=== PATIENT | male | born 1990 | race Caucasian/White ===

== ENCOUNTER 2023-05-01 16:10 | Emergency (ER) | payer OTHER, SELFPAY ==
[2023-05-01 16:17] VITALS: BP 133/88; PULSE 98; RESP 18; TEMP 36.7; O2SAT 97
--- NOTE | 2023-05-01 18:22 | CRLHL7_ITS ---
For Patients: As a result of the Century Cures Act, medical imaging exams and procedure reports are released immediately into your electronic medical record. You may view this report before your referring provider. If you have questions, please contact your health care provider. INDICATION: Cough, hemoptysis. TECHNIQUE: Chest 2 views. COMPARISON: None. FINDINGS: Cardiovascular and mediastinum: Heart size and vasculature are normal in caliber and appearance. Lungs and pleural spaces: Lungs are clear. No sign of infiltrate or mass. No sign of pleural effusion. No pneumothorax. Bones and soft tissues: No significant findings. IMPRESSION: No acute cardiopulmonary abnormality. Dictated by Dmitry Tenorio MD @ 05/01/2023 7:32:03 PM (Electronically Signed)
--- NOTE | 2023-05-01 18:52 | ED.GENADULT ---
HPI - General Adult General Date Seen: 05/01/23 Chief complaint: Cough Stated complaint: coughing up blood Time Seen by Provider: 05/01/23 16:58 History of Present Illness HPI narrative: This is a pleasant generally healthy nonsmoking 32-year-old male who presents to the ER today with cough and hemoptysis. He has actually been ill with infectious symptoms for about a month. He says symptoms 1st started with [id number] disease. That got better and then he got what he thought was a cold, which lasted for about a week or so and then was getting better. He then feels like he got a 2nd cold perhaps 2 and half weeks ago. Symptoms have been nasal congestion, mild sore throat, and cough with the 2nd cold. For the past several days the cough has been more notable. He is not short of breath or having any chest pain. He is coughing up some yellow sputum. He had some flecks of blood, perhaps a tsp of blood total volume on Friday morning after he woke up. No blood in his sputum on Friday or Friday or Friday but he is having blood in his sputum again today. Again small volume. He is not short of breath. No chest pain. No fever. No history of smoking. No history of lung cancer. No history of patient has autoimmune disease. No swelling in his legs. He has a distant history of asthma but has not used his inhaler for several years. Related Data Previous Rx's Medication Instructions Recorded doxycycline monohydrate 100 mg 100 mg PO BID 7 days #14 caps 05/01/23 capsule Allergies Allergy/AdvReac Type Severity Reaction Status Date / Time Penicillins Allergy Verified 05/01/23 16:21 Exam Narrative: Exam Narrative: Constitutional: Appears well-developed and well-nourished. Alert. Conversant. Non toxic. HENT: Head: Atraumatic. Nose: Nose normal. Mouth/Throat: Oral mucosa is clear and moist. no trismus. Pharynx mildly erythematous on the peritonsillar pillars. Tonsils symmetric. No tonsillar enlargement, erythema, or exudate. Eyes: Conjunctivae normal. EOM normal. Pupils equal, round, and reactive to light. No scleral icterus. Neck: Normal range of motion. Neck supple. No tracheal deviation present. Cardiovascular: Normal rate, regular rhythm. No gallop. No friction rub. No murmur heard. Symmetric radial artery pulses Pulmonary/Chest: Effort normal. No stridor. No respiratory distress. No wheezes. No rales. No rhonchi . No tenderness. Abdominal: Soft. Bowel sounds normal. No distension. No mass. No tenderness. No rebound. No guarding. Musculoskeletal: RUE: Normal range of motion. No tenderness. No deformity LUE: Normal range of motion. No tenderness. No deformity RLE: Normal range of motion. No edema. No tenderness. No deformity LLE: Normal range of motion. No edema. No tenderness. No deformity Lymph: No cervical adenopathy. Neurological: Alert and oriented to person, place, and time. Normal strength. CN II-VII intact. No sensory deficit. GCS eye subscore is 4. GCS verbal subscore is 5. GCS motor subscore is 6. Normal coordination Skin: Skin is warm and dry. No rash noted. No pallor. Normal capillary refill. Psychiatric: Normal mood. Normal affect. Const: Vital Signs, click to edit/add: Vital Signs - 24 hr 05/01/23 16:17 Temperature 98.1 F Pulse Rate [Pulse Oximeter] 98 Respiratory Rate 18 [facility] 133/88 Pulse Oximetry 97 Oxygen Delivery Me thod Room Air Course Vital Signs Vital signs: Initial Vital Signs Temperature 98.1 F 05/01/23 16:17 Temperature Source Temporal Artery Scan 05/01/23 16:17 Pulse Rate 98 05/01/23 16:17 Respiratory Rate 18 05/01/23 16:17 Blood Pressure 133/88 05/01/23 16:17 Blood Pressure Mean 103 05/01/23 16:17 Blood Pressure Position Sitting 05/01/23 16:17 Pulse Oximetry 97 05/01/23 16:17 Oxygen Delivery Method Room Air 05/01/23 16:17 Vital Signs Temperature 98.1 F 05/01/23 16:17 Pulse Rate 98 05/01/23 16:17 Respiratory Rate 18 05/01/23 16:17 Blood Pressure 133/88 05/01/23 16:17 Pulse Oximetry 97 05/01/23 16:17 Oxygen Delivery Method Room Air 05/01/23 16:17 Temperature 98.1 F 05/01/23 16:17 Pulse Rate 98 05/01/23 16:17 Respiratory Rate 18 05/01/23 16:17 Blood Pressure 133/88 05/01/23 16:17 Pulse Oximetry 97 05/01/23 16:17 Oxygen Delivery Method Room Air 05/01/23 16:17 Medical Decision Making MDM Narrative Medical decision making narrative: This patient presents for evaluation of couple weeks of cough now with hemoptysis. This is consistent with a viral respiratory tract infection. Viral testing deferred because he is outside the window for treatment of influenza or coronavirus with symptoms ongoing for 2 weeks. At this point he is not showing signs of respiratory distress, hypoxia and is not even short of breath. At this point no indication for hospitalization.. There is no signs at this point of serious bacterial infection such as OM, RPA, epiglottitis, [employer], strep pharyngitis, pneumonia, sinusitis, meningitis, bacteremia, serious bacterial infection. Given hemoptysis and biphasic illness, concern is for possible bacterial superinfection or pneumonia. Chest x-ray is fortunately negative for any obvious pneumonia. Given duration of cough and biphasic in this will put him on a short course of antibiotics. Discussed with him that often times bronchitis is viral and takes time to resolve and that antibiotics may not be beneficial. There are no gastrointestinal symptoms at this point and no signs of dehydration. Close followup with primary care physician is indicated. Return to ED for fever > 103, protracted vomiting, confusion, or other worsening. Imaging Data Chest x-ray: Attestation: I have reviewed the pertinent imaging results. My impression: no infiltrate Radiologist's impression: IMPRESSION: No acute cardiopulmonary abnormality. Discharge Plan Discharge Clinical Impression: Cough with hemoptysis, Cough Patient Disposition: Home, Self-Care Condition: Stable Instructions: Coughing Up Blood (Hemoptysis) (ED), Acute Cough (ED) Additional Instructions: As we discussed, please return to the ER right away if you have worsening cough, trouble breathing, chest pain, high fever, or coughing up increasing amounts of blood. If not completely improved within 7 days, please recheck with your regular doctor or come back to the ER for recheck. Activity Level: No Restrictions Discharge Diet: Regular Prescriptions: New doxycycline monohydrate 100 mg capsule 100 mg PO BID 7 Days Qty: 14 0RF Follow Up/Referrals: Gerald Cortés MD [Primary Care Provider] - Stand Alone Forms: PT [facility] Info Instructions
== END 2023-05-01 20:11 | disposition home or self-care (01) ==
PROVIDERS: Emergency Provider Emergency Medicine; PCP Family Medicine
DX: R04.2 Hemoptysis (principal)
CPT/HCPCS: 71046; 99283

== ENCOUNTER 2024-06-06 17:21 | Emergency (ER) | payer OTHER, SELFPAY ==
--- OUTSIDE RECORDS SUMMARY | 2024-06-06 17:23 | XMS_ITS | Continuity of Care Document ---
Author Name [facility] Organization [facility] Care Team Providers Care Architectural Manager Name Role Phone [facility] Unavailable Unavailable Problems Combined list of problems from Department of Defense and Veterans Affairs facilities. It does not include entries that were removed or entered in error. Problem Status Onset Date Problem Type Date of Resolution Comments Source Exposure to potentially hazardous substance (SCT [id number]) Active 08/01/19 24 Condition Aug 01, 2023 Entered By: WILDER WEBB [facility]: [facility] FELA Documentation Initiative [facility] Abdominal Pain (SCT 10911226) Active Condition [facility] Asthma (SCT 990533837) Active Condition [facility] Back pain Active Condition [facility] Chronic post-traumatic stress disorder following combat Active Condition [place] [facility] Contact with and (Suspected) Exposure to Air Pollution Active Condition [facility] Contact with and (suspected) exposure to other hazardous substances Active Condition [facility] Contact with and (Suspected) Exposure to other Hazardous, Chiefly Nonmedicinal, Active Condition [facility] Contact with and (Suspected) Exposure to other Hazards in the Physical Environme Active Condition [facility] Eczema (SCT 43905628) Active Condition [facility] Low Back Pain (SCT 842119008) Active Condition [facility] Obesity Active Condition [facility] Sleep apnea Active Condition [facility] Steatosis of liver Active Condition [facility] lumbago Active Condition [facility] nonallopathic lesions thoracic Active Condition [facility] sacroiliitis Active Condition [facility] intervertebral disc degeneration - lumbosacral Active Condition [facility] facet syndrome lumbar Active Condition [facility] lower back pain Active Condition [facility] foot pain (soft tissue) Active Condition [facility] skin: rash [as Sx] Active Condition DoD overweight Active Condition DoD psoriasis Active Condition [facility] visit for: routine eye exam Inactive Condition [facility] Laboratory Studies Inactive Condition DoD visit for: services physical demobilization Active Condition [facility] Repair Of Superficial Wound Scalp .1 to 2.5 cm Inactive Condition [facility] Anthrax Vaccine, For Subcutaneous Use Inactive Condition DoD feared medical condition not demonstrated Active Condition [facility] Patient Counseling: Active Condition DoD lump in / on the skin Active Condition [facility] Observation For Suspected Condition Inactive Condition DoD anxiety disorder NOS Active Condition DoD generalized anxiety disorder Active Condition [facility] Patient Education Dietary Changing Eating Habits Active Condition [facility] Guidance: Concerns About Inadequate Physical Activity Active Condition [facility] Other Physical Therapy Active Condition [facility] Dietary Counseling Pertaining To Obesity Active Condition [facility] obesity Active Condition [facility] Body Mass Index Active Condition Do[facility] plantar fasciitis left Inactive Condition DoD patellofemoral syndrome Active Condition DoD acute bronchitis Inactive Condition [facility] cough Inactive Condition DoD sinusitis acute Active Condition DoD refractive error Active Condition [facility] visit for: services physical Active Condition [facility] visit for: ears / hearing exam Active Condition [facility] assessment of patient condition work-related Active Condition [facility] visit for: screening exam pulmonary tuberculosis Active Condition [facility] Diagnosis: ICD-10-CM G47.30 Sleep apnea, unspecified Active Diagnosis [facility] Diagnosis: ICD-10-CM Z77.9 Oth contact w and (suspected) exposures hazardous to health Active Diagnosis [facility] Diagnosis: ICD-10-CM Z77.110 Contact with and (suspected) exposure to air pollution Active Diagnosis [facility] Medications Combined list of outpatient medications from Department of [facility] and [facility] facilities.Medications provided include 1) outpatient medications from the last 15 months, and 2) patient-reported medications. Medication Details Route Status Patient Instructions Prescription Expires Prescription Number Last Dispense Date Ordering Provider Order Date Order Qty Source CELECOXIB 200MG CAP TAKE ONE CAPSULE BY MOUTH EVERY DAY NEEDED FOR PAIN TAKE WITH FOOD ORAL ACTIVE 01/13/2025 [id number] 4 Sarah DU 2023 90 [place] 750MG TAB TAKE ONE TABLET BY MOUTH THREE TIMES A DAY NEEDED FOR MUSCLE PAIN ORAL ACTIVE 01/13/2025 [id number] 4 Sarah DU 2023 90 [facility] Allergies, Adverse Reactions, Alerts Combined list of allergies from Department of [facility] and [facility] facilities. It does not include entries that were removed or entered in error. Substance Category Reaction Severity Reaction type Status Date Reported Comments Source AMOXICILLIN Propensity to adverse reactions to drug (finding) Finding of vomiting [facility] (AMOXICILLIN TRIHYDRATE) Drug allergy (disorder) Vomiting active 0 [place], [place] Immunizations Combined list of available immunizations from the Department of Defense and Veterans Affairs facilities. Immunization Series Date Given Administered By Site Reaction Lot Number CVX Code Drug Escapement Maker Status Comments Source TDAP 2015 115 complet ed [facility] anthrax vaccine 4 2010 [id number] [employer] [place] ([facility]) complet ed anthrax vaccine DoD Influenza, seasonal, injectable 3 2010 [id number] 141 [employer], [employer]. (CSL) complet ed Influenza , seasonal, injectabl e DoD anthrax vaccine 3 2010 [id number] [place] [employer] [place] ([facility]) complet ed anthrax vaccine DoD vaccinia (smallpox) vaccine 1 2009 UNK 75 Unknown (UNK) Not Given vaccinia (smallpox ) vaccine DoD anthrax vaccine 2 2009 [id number] [facility] complet ed anthrax vaccine DoD influenza virus vaccine, live, attenuated, for intranasal use 1 2009 [id number] [employer] (MED) complet ed influenza virus vaccine, live, attenuate d, for intranasa l use DoD anthrax vaccine 1 2009 [id number] [employer] [place] ([facility]) complet ed anthrax vaccine DoD typhoid Vi capsular polysaccharid e vaccine 1 2009 [id number] Sanofi Pasteur (PMC) complet ed typhoid Vi capsular polysacch aride vaccine DoD hepatitis A and hepatitis B vaccine 3 2009 [id number] 104 [employer] (SKB) complet ed hepatitis A and hepatitis B vaccine DoD Novel influenza-H1N 1-09, injectable 1 2009 [id number] [employer] Danny. (NOV) complet ed Novel influenza -I2T0-05, injectabl e DoD influenza virus vaccine, live, attenuated, for intranasal use 1 2008 [id number] [employer] (MED) complet ed influenza virus vaccine, live, attenuate d, for intranasa l use DoD hepatitis A and hepatitis B vaccine 2 2008 [id number] 104 [employer] (SKB) complet ed hepatitis A and hepatitis B vaccine DoD measles, mumps and rubella virus vaccine 1 2008 [id number] Merck (MSD) complet ed measles, mumps and rubella virus vaccine DoD poliovirus vaccine, inactivated 1 2008 [id number] Sanofi Pasteur (PMC) complet ed polioviru s vaccine, inactivat ed DoD varicella virus vaccine 1 2008 UNK 21 Unknown (UNK) Not Given varicella virus vaccine DoD hepatitis A and hepatitis B vaccine 1 2008 [id number] 0AA 104 [employer] (SKB) complet ed hepatitis A and hepatitis B vaccine DoD meningococcal polysaccharid e (groups A, C, Y and W-135) diphtheria toxoid conjugate vaccine (MCV4P) 1 2008 [id number] Sanofi Pasteur (PMC) complet ed meningoco ccal polysacch aride (groups A, C, Y and W-135) diphtheri a toxoid conjugate vaccine (MCV4P) DoD tetanus toxoid, reduced diphtheria toxoid, and acellular pertu is vaccine, adsorbed 1 2008 [id number] 115 [employer] (SKB) complet ed tetanus toxoid, reduced diphtheri a toxoid, and acellular pertussis vaccine, adsorbed DoD Results Combined list of recent chemistry, hematology and other laboratory results from Department of Defense and Veterans Affairs, ranging from 15 months to all on record, depending upon the facility. Order Name Results Value Reference Range Date Interpretation Specimen Comments Source COMPREHENS MATEO METABOLIC PANEL+MG CREATININE [MASS/VOLUM E] IN SERUM OR PLASMA 1.2 mg/dL 0.7 - 1.2 10/09 Specimen Type: PLASMA Comment: Elevated triglyceride result from a non-fasting specimen should be interpreted with caution. A fasting panel is recommended for accurate triglyceride s when trigs are >200 from a non-fasting specimen. Ordering Provider: MELISSA DU Report Released Date/Time: October 10, 2023 10:28 AM Reporting Lab: [facility] [phone] Performing Lab: [facility] [address] [facility] COMPREHENS MATEO METABOLIC PANEL+MG UREA NITROGEN [MASS/VOLUM E] IN SERUM OR PLASMA 21 mg/dL 8 - 26 10/09 Specimen Type: PLASMA Comment: Elevated triglyceride result from a non-fasting specimen should be interpreted with caution. A fasting panel is recommended for accurate triglyceride s when trigs are >200 from a non-fasting specimen. Ordering Provider: MELISSA DU Report Released Date/Time: October 10, 2023 10:28 AM Reporting Lab: [facility] [phone] Performing Lab: [facility] [address] [facility] COMPREHENS MATEO METABOLIC PANEL+MG GLUCOSE [MASS/VOLUM E] IN SERUM OR PLASMA 92 mg/dL 70 - 100 10/09 Specimen Type: PLASMA Comment: Elevated triglyceride result from a non-fasting specimen should be interpreted with caution. A fasting panel is recommended for accurate triglyceride s when trigs are >200 from a non-fasting specimen. Ordering Provider: MELISSA DU Report Released Date/Time: October 10, 2023 10:28 AM Reporting Lab: [facility] [address] Performing Lab: [facility] [phone] [facility] COMPREHENS MATEO METABOLIC PANEL+MG SODIUM [MOLES/VOLU ME] IN SERUM OR PLASMA 138 mmol/L 136 - 145 10/09 Specimen Type: PLASMA Comment: Elevated triglyceride result from a non-fasting specimen should be interpreted with caution. A fasting panel is recommended for accurate triglyceride s when trigs are >200 from a non-fasting specimen. Ordering Provider: MELISSA DU Report Released Date/Time: October 10, 2023 10:28 AM Reporting Lab: [facility] [phone] Performing Lab: [facility] [phone] [facility] COMPREHENS MATEO METABOLIC PANEL+MG POTASSIUM [MOLES/VOLU ME] IN SERUM OR PLASMA 4.0 mmol/L 3.5 - 5.1 10/09 Specimen Type: PLASMA Comment: Elevated triglyceride result from a non-fasting specimen should be interpreted with caution. A fasting panel is recommended for accurate triglyceride s when trigs are >200 from a non-fasting specimen. Ordering Provider: MELISSA DU Report Released Date/Time: October 10, 2023 10:28 AM Reporting Lab: [facility] [address] Performing Lab: [facility] [address] [facility] COMPREHENS MATEO METABOLIC PANEL+MG CHLORIDE [MOLES/VOLU ME] IN SERUM OR PLASMA 105 mmol/L 98 - 107 10/09 Specimen Type: PLASMA Comment: Elevated triglyceride result from a non-fasting specimen should be interpreted with caution. A fasting panel is recommended for accurate triglyceride s when trigs are >200 from a non-fasting specimen. Ordering Provider: MELISSA DU Report Released Date/Time: October 10, 2023 10:28 AM Reporting Lab: [facility] [phone] Performing Lab: [facility] [phone] [facility] COMPREHENS MATEO METABOLIC PANEL+MG CARBON DIOXIDE, TOTAL [MOLES/VOLU ME] IN SERUM OR PLASMA 23 mmol/L 22 - 29 10/09 Specimen Type: PLASMA Comment: Elevated triglyceride result from a non-fasting specimen should be interpreted with caution. A fasting panel is recommended for accurate triglyceride s when trigs are >200 from a non-fasting specimen. Ordering Provider: MELISSA DU Report Released Date/Time: October 10, 2023 10:28 AM Reporting Lab: [facility] [phone] Performing Lab: [facility] [address] [facility] COMPREHENS MATEO METABOLIC PANEL+MG CALCIUM [MASS/VOLUM E] IN SERUM OR PLASMA 9.2 mg/dL 8.4 - 10.2 10/09 Specimen Type: PLASMA Comment: Elevated triglyceride result from a non-fasting specimen should be interpreted with caution. A fasting panel is recommended for accurate triglyceride s when trigs are >200 from a non-fasting specimen. Ordering Provider: MELISSA DU Report Released Date/Time: October 10, 2023 10:28 AM Reporting Lab: [facility] [phone] Performing Lab: [facility] [phone] [facility] COMPREHENS MATEO METABOLIC PANEL+MG PROTEIN [MASS/VOLUM E] IN SERUM OR PLASMA 7.5 g/dL 6.0 - 8.3 10/09 Specimen Type: PLASMA Comment: Elevated triglyceride result from a non-fasting specimen should be interpreted with caution. A fasting panel is recommended for accurate triglyceride s when trigs are >200 from a non-fasting specimen. Ordering Provider: MELISSA DU Report Released Date/Time: October 10, 2023 10:28 AM Reporting Lab: [facility] [address] Performing Lab: [facility] [address] [facility] COMPREHENS MATEO METABOLIC PANEL+MG ALBUMIN [MASS/VOLUM E] IN SERUM OR PLASMA 4.2 g/dL 3.5 - 5.2 10/09 Specimen Type: PLASMA Comment: Elevated triglyceride result from a non-fasting specimen should be interpreted with caution. A fasting panel is recommended for accurate triglyceride s when trigs are >200 from a non-fasting specimen. Ordering Provider: MELISSA DU Report Released Date/Time: October 10, 2023 10:28 AM Reporting Lab: [facility] [phone] Performing Lab: [facility] [address] [facility] COMPREHENS MATEO METABOLIC PANEL+MG BILIRUBIN.T OTAL [MASS/VOLUM E] IN SERUM OR PLASMA 0.6 mg/dL 0.2 - 1.2 10/09 Specimen Type: PLASMA Comment: Elevated triglyceride result from a non-fasting specimen should be interpreted with caution. A fasting panel is recommended for accurate triglyceride s when trigs are >200 from a non-fasting specimen. Ordering Provider: MELISSA DU Report Released Date/Time: October 10, 2023 10:28 AM Reporting Lab: [facility] [phone] Performing Lab: [facility] [phone] [facility] COMPREHENS MATEO METABOLIC PANEL+MG MAGNESIUM [MASS/VOLUM E] IN SERUM OR PLASMA 1.9 mg/dL 1.6 - 2.6 10/09 Specimen Type: PLASMA Comment: Elevated triglyceride result from a non-fasting specimen should be interpreted with caution. A fasting panel is recommended for accurate triglyceride s when trigs are >200 from a non-fasting specimen. Ordering Provider: MELISSA DU Report Released Date/Time: October 10, 2023 10:28 AM Reporting Lab: [facility] [phone] Performing Lab: [facility] [address] [facility] COMPREHENS MATEO METABOLIC PANEL+MG ANION GAP IN SERUM OR PLASMA 10 mmol/L 5 - 15 10/09 Specimen Type: PLASMA Comment: Elevated triglyceride result from a non-fasting specimen should be interpreted with caution. A fasting panel is recommended for accurate triglyceride s when trigs are >200 from a non-fasting specimen. Ordering Provider: MELISSA DU Report Released Date/Time: October 10, 2023 10:28 AM Reporting Lab: [facility] [phone] Performing Lab: [facility] [phone] [facility] COMPREHENS MATEO METABOLIC PANEL+MG ALKALINE PHOSPHATASE [ENZYMATIC ACTIVITY/VO LUME] IN SERUM OR PLASMA 30 U/L 40 - 150 10/09 L Specimen Type: PLASMA Comment: Elevated triglyceride result from a non-fasting specimen should be interpreted with caution. A fasting panel is recommended for accurate triglyceride s when trigs are >200 from a non-fasting specimen. Ordering Provider: MELISSA DU Report Released Date/Time: October 10, 2023 10:28 AM Reporting Lab: [facility] [phone] Performing Lab: [facility] [address] [facility] COMPREHENS MATEO METABOLIC PANEL+MG ALANINE AMINOTRANSF ERASE [ENZYMATIC ACTIVITY/VO LUME] IN SERUM OR PLASMA 37 U/L <55 - 55 10/09 Specimen Type: PLASMA Comment: Elevated triglyceride result from a non-fasting specimen should be interpreted with caution. A fasting panel is recommended for accurate triglyceride s when trigs are >200 from a non-fasting specimen. Ordering Provider: MELISSA DU Report Released Date/Time: October 10, 2023 10:28 AM Reporting Lab: [facility] [phone] Performing Lab: [facility] [address] [facility] COMPREHENS MATEO METABOLIC PANEL+MG ASPARTATE AMINOTRANSF ERASE [ENZYMATIC ACTIVITY/VO LUME] IN SERUM OR PLASMA 25 U/L <34 - 34 10/09 Specimen Type: PLASMA Comment: Elevated triglyceride result from a non-fasting specimen should be interpreted with caution. A fasting panel is recommended for accurate triglyceride s when trigs are >200 from a non-fasting specimen. Ordering Provider: MELISSA DU Report Released Date/Time: October 10, 2023 10:28 AM Reporting Lab: [facility] [address] Performing Lab: [facility] [address] [facility] COMPREHENS MATEO METABOLIC PANEL+MG GLOMERULAR FILTRATION RATE/1.73 SQ M.PREDICTED [VOLUME RATE/AREA] IN SERUM, PLASMA OR BLOOD BY CREATININE- BASED FORMULA (CKD-EPI 2020) 81 60 10/09 Specimen Type: PLASMA Comment: Elevated triglyceride result from a non-fasting specimen should be interpreted with caution. A fasting panel is recommended for accurate triglyceride s when trigs are >200 from a non-fasting specimen. Ordering Provider: MELISSA DU Report Released Date/Time: October 10, 2023 10:28 AM Reporting Lab: [facility] [phone] Performing Lab: [facility] [address] [facility] CBC LEUKOCYTES [#/VOLUME] IN BLOOD BY AUTOMATED COUNT 6.89 10*3/u L 4.0 - 11.0 10/09 Specimen Type: BLOOD No comment entered. Ordering Provider: MELISSA DU Report Released Date/Time: October 10, 2023 10:28 AM Reporting Lab: [facility] [address] Performing Lab: [facility] [address] [facility] CBC ERYTHROCYTE S [#/VOLUME] IN BLOOD BY AUTOMATED COUNT 4.91 10*6/u L 4.6 - 6.2 10/09 Specimen Type: BLOOD No comment entered. Ordering Provider: MELISSA DU Report Released Date/Time: October 10, 2023 10:28 AM Reporting Lab: [facility] [address] Performing Lab: [facility] [address] [facility] CBC HEMOGLOBIN [MASS/VOLUM E] IN BLOOD 14.9 g/dL 13.5 - 17.9 10/09 Specimen Type: BLOOD No comment entered. Ordering Provider: MELISSA DU Report Released Date/Time: October 10, 2023 10:28 AM Reporting Lab: [facility] [address] Performing Lab: [facility] [address] [facility] CBC HEMATOCRIT [VOLUME FRACTION] OF BLOOD BY AUTOMATED COUNT 42.0 41 - 54 10/09 Specimen Type: BLOOD No comment entered. Ordering Provider: MELISSA DU Report Released Date/Time: October 10, 2023 10:28 AM Reporting Lab: [facility] [phone] Performing Lab: [facility] [phone] [facility] CBC MCV [ENTITIC VOLUME] BY AUTOMATED COUNT 85.5 fL 80 - 100 10/09 Specimen Type: BLOOD No comment entered. Ordering Provider: MELISSA DU Report Released Date/Time: October 10, 2023 10:28 AM Reporting Lab: [facility] [address] Performing Lab: [facility] [address] [facility] CBC MCH [ENTITIC MASS] BY AUTOMATED COUNT 30.3 pg 27 - 33 10/09 Specimen Type: BLOOD No comment entered. Ordering Provider: MELISSA DU Report Released Date/Time: October 10, 2023 10:28 AM Reporting Lab: [facility] [address] Performing Lab: [facility] [address] [facility] CBC MCHC [MASS/VOLUM E] BY AUTOMATED COUNT 35.5 g/dL 32.0 - 37.5 10/09 Specimen Type: BLOOD No comment entered. Ordering Provider: MELISSA DU Report Released Date/Time: October 10, 2023 10:28 AM Reporting Lab: [facility] [address] Performing Lab: [facility] [address] [facility] CBC PLATELETS [#/VOLUME] IN BLOOD BY AUTOMATED COUNT 336 10*3/u L 150 - 400 10/09 Specimen Type: BLOOD No comment entered. Ordering Provider: MELISSA DU Report Released Date/Time: October 10, 2023 10:28 AM Reporting Lab: [facility] [address] Performing Lab: [facility] [address] [facility] CBC PLATELET MEAN VOLUME [ENTITIC VOLUME] IN BLOOD BY AUTOMATED COUNT 10.0 fL 7.4 - 10.4 10/09 Specimen Type: BLOOD No comment entered. Ordering Provider: MELISSA DU Report Released Date/Time: October 10, 2023 10:28 AM Reporting Lab: [facility] [address] Performing Lab: [facility] [address] [facility] CBC ERYTHROCYTE DISTRIBUTIO N WIDTH [RATIO] BY AUTOMATED COUNT 11.9 11.5 - 14.5 10/09 Specimen Type: BLOOD No comment entered. Ordering Provider: MELISSA DU Report Released Date/Time: October 10, 2023 10:28 AM Reporting Lab: [facility] [address] Performing Lab: [facility] [address] [facility] HEMOGLOBIN A1C HEMOGLOBIN A1C/HEMOGLO BIN.TOTAL IN BLOOD 5.4 4.0 - 6.0 10/09 Specimen Type: BLOOD Comment: Values obtained from A1C measurements can vary. For typical A1C assays, a reported value of 7.0 could actually be between 6.7 and 7.3 if measured by a reference method. A reported value of 9.0 could actually be between 8.7 and 9.3. Ref: http://www.n gsp.org/CAPd abhijeet.asp Ordering Provider: MELISSA DU Report Released Date/Time: October 10, 2023 10:28 AM Reporting Lab: [facility] [address] Performing Lab: [facility] [address] [facility] LIPID PANEL,NON- FASTING CHOLESTEROL [MASS/VOLUM E] IN SERUM OR PLASMA 212 mg/dL <199 - 199 10/09 H Specimen Type: PLASMA Comment: Elevated triglyceride result from a non-fasting specimen should be interpreted with caution. A fasting panel is recommended for accurate triglyceride s when trigs are >200 from a non-fasting specimen. Ordering Provider: MELISSA DU Report Released Date/Time: October 10, 2023 10:28 AM Reporting Lab: [facility] [address] Performing Lab: [facility] [address] [facility] LIPID PANEL,NON- FASTING CHOLESTEROL IN HDL [MASS/VOLUM E] IN SERUM OR PLASMA 36 mg/dL 40 10/09 L Specimen Type: PLASMA Comment: Elevated triglyceride result from a non-fasting specimen should be interpreted with caution. A fasting panel is recommended for accurate triglyceride s when trigs are >200 from a non-fasting specimen. Ordering Provider: MELISSA DU Report Released Date/Time: October 10, 2023 10:28 AM Reporting Lab: [facility] [address] Performing Lab: [facility] [address] [facility] LIPID PANEL,NON- FASTING CHOLESTEROL IN LDL [MASS/VOLUM E] IN SERUM OR PLASMA BY CALCULATION 126 mg/dL <99 - 99 10/09 H Specimen Type: PLASMA Comment: Elevated triglyceride result from a non-fasting specimen should be interpreted with caution. A fasting panel is recommended for accurate triglyceride s when trigs are >200 from a non-fasting specimen. Ordering Provider: MELISSA DU Report Released Date/Time: October 10, 2023 10:28 AM Reporting Lab: [facility] [phone] Performing Lab: [facility] [address] [facility] LIPID PANEL,NON- FASTING CHOLESTEROL IN VLDL [MASS/VOLUM E] IN SERUM OR PLASMA BY CALCULATION 50 mg/dL <29 - 29 10/09 H Specimen Type: PLASMA Comment: Elevated triglyceride result from a non-fasting specimen should be interpreted with caution. A fasting panel is recommended for accurate triglyceride s when trigs are >200 from a non-fasting specimen. Ordering Provider: MELISSA DU Report Released Date/Time: October 10, 2023 10:28 AM Reporting Lab: [facility] [address] Performing Lab: [facility] [address] ALIA [facility] LIPID PANEL,NON- FASTING CHOLESTEROL NON HDL [MASS/VOLUM E] IN SERUM OR PLASMA 176 mg/dL <129 - 129 10/09 H Specimen Type: PLASMA Comment: Elevated triglyceride result from a non-fasting specimen should be interpreted with caution. A fasting panel is recommended for accurate triglyceride s when trigs are >200 from a non-fasting specimen. Ordering Provider: MELISSA DU Report Released Date/Time: October 10, 2023 10:28 AM Reporting Lab: [facility] [address] Performing Lab: [facility] [address] ALIA BURGOS LIPID PANEL,NON- FASTING TRIGLYCERID E [MASS/VOLUM E] IN SERUM OR PLASMA 249 mg/dL <149 - 149 10/09 H Specimen Type: PLASMA Comment: Elevated triglyceride result from a non-fasting specimen should be interpreted with caution. A fasting panel is recommended for accurate triglyceride s when trigs are >200 from a non-fasting specimen. Ordering Provider: MELISSA DU Report Released Date/Time: October 10, 2023 10:28 AM Reporting Lab: [facility] [address] Performing Lab: [facility] [address] ALIA BURGOS TSH W/REFLEX TO FREE T4 THYROTROPIN [UNITS/VOLU ME] IN SERUM OR PLASMA 1.71 u[IU]/ mL 0.35 - 4.94 10/09 Specimen Type: PLASMA Comment: Elevated triglyceride result from a non-fasting specimen should be interpreted with caution. A fasting panel is recommended for accurate triglyceride s when trigs are >200 from a non-fasting specimen. Ordering Provider: MELISSA DU Report Released Date/Time: October 10, 2023 10:28 AM Reporting Lab: [facility] [address] Performing Lab: [facility] [address] ALIA ESPINO CB CBC LEUKOCYTES [#/VOLUME] IN BLOOD BY AUTOMATED COUNT 6.48 10*3/u L 4.0 - 11.0 09/24 Specimen Type: BLOOD No comment entered. Ordering Provider: GRANDIA,CONN IE M Report Released Date/Time: September 24, 2022 11:50 AM Reporting Lab: [facility] [address] Performing Lab: [facility] [address] ALIA KENZIE CBOC CBC ERYTHROCYTE S [#/VOLUME] IN BLOOD BY AUTOMATED COUNT 4.98 10*6/u L 4.6 - 6.2 09/24 Specimen Type: BLOOD No comment entered. Ordering Provider: MELISSA DU Report Released Date/Time: September 24, 2022 11:50 AM Reporting Lab: [facility] [address] Performing Lab: [facility] [address] AL[facility] CBC HEMOGLOBIN [MASS/VOLUM E] IN BLOOD 15.1 g/dL 13.5 - 17.9 09/24 Specimen Type: BLOOD No comment entered. Ordering Provider: MELISSA DU Report Released Date/Time: September 24, 2022 11:50 AM Reporting Lab: [facility] [address] Performing Lab: [facility] [address] [facility] CBC HEMATOCRIT [VOLUME FRACTION] OF BLOOD BY AUTOMATED COUNT 44.7 41 - 54 09/24 Specimen Type: BLOOD No comment entered. Ordering Provider: MELISSA DU Report Released Date/Time: September 24, 2022 11:50 AM Reporting Lab: [facility] [address] Performing Lab: [facility] [address] AL[facility] CBC MCV [ENTITIC VOLUME] BY AUTOMATED COUNT 89.8 fL 80 - 100 09/24 Specimen Type: BLOOD No comment entered. Ordering Provider: MELISSA DU Report Released Date/Time: September 24, 2022 11:50 AM Reporting Lab: [facility] [address] Performing Lab: [facility] [address] ALIA [facility] CBC MCH [ENTITIC MASS] BY AUTOMATED COUNT 30.3 pg 27 - 33 09/24 Specimen Type: BLOOD No comment entered. Ordering Provider: MELISSA DU Report Released Date/Time: September 24, 2022 11:50 AM Reporting Lab: [facility] [address] Performing Lab: [facility] [address] ALIA [facility] CBC MCHC [MASS/VOLUM E] BY AUTOMATED COUNT 33.8 g/dL 32.0 - 37.5 09/24 Specimen Type: BLOOD No comment entered. Ordering Provider: MELISSA DU Report Released Date/Time: September 24, 2022 11:50 AM Reporting Lab: [facility] [address] Performing Lab: [facility] [address] [facility] CBC PLATELETS [#/VOLUME] IN BLOOD BY AUTOMATED COUNT 340 10*3/u L 150 - 400 09/24 Specimen Type: BLOOD No comment entered. Ordering Provider: MELISSA DU Report Released Date/Time: September 24, 2022 11:50 AM Reporting Lab: [facility] [address] Performing Lab: [facility] [address] ALIA [facility] CBC PLATELET MEAN VOLUME [ENTITIC VOLUME] IN BLOOD BY AUTOMATED COUNT 10.0 fL 7.4 - 10.4 09/24 Specimen Type: BLOOD No comment entered. Ordering Provider: MELISSA DU Report Released Date/Time: September 24, 2022 11:50 AM Reporting Lab: [facility] [address] Performing Lab: [facility] [address] ALIA KENZIE CBOC CBC ERYTHROCYTE DISTRIBUTIO N WIDTH [RATIO] BY AUTOMATED COUNT 12.3 11.5 - 14.5 09/24 Specimen Type: BLOOD No comment entered. Ordering Provider: MELISSA DU Report Released Date/Time: September 24, 2022 11:50 AM Reporting Lab: [facility] [address] Performing Lab: [facility] [address] ALIA [facility] HEMOGLOBIN A1C HEMOGLOBIN A1C/HEMOGLO BIN.TOTAL IN BLOOD 5.2 4.0 - 6.0 09/24 Specimen Type: BLOOD Comment: Values obtained from A1C measurements can vary. For typical A1C assays, a reported value of 7.0 could actually be between 6.7 and 7.3 if measured by a reference method. A reported value of 9.0 could actually be between 8.7 and 9.3. Ref: http://www.n gsp.org/CAPd abhijeet.asp Ordering Provider: MELISSA DU Report Released Date/Time: September 24, 2022 11:50 AM Reporting Lab: [facility] [address] Performing Lab: [facility] [address] ALIA K[facility] LIPID PANEL,NON- FASTING CHOLESTEROL [MASS/VOLUM E] IN SERUM OR PLASMA 213 mg/dL <199 - 199 09/24 H Specimen Type: PLASMA No comment entered. Ordering Provider: MELISSA DU Report Released Date/Time: September 24, 2022 11:50 AM Reporting Lab: [facility] [address] Performing Lab: [facility] [address] ALIA K[facility] LIPID PANEL,NON- FASTING CHOLESTEROL IN HDL [MASS/VOLUM E] IN SERUM OR PLASMA 40 mg/dL 40 09/24 Specimen Type: PLASMA No comment entered. Ordering Provider: MELISSA DU Report Released Date/Time: September 24, 2022 11:50 AM Reporting Lab: [facility] [address] Performing Lab: [facility] [address] ALIA KENZIE [facility] LIPID PANEL,NON- FASTING CHOLESTEROL IN LDL [MASS/VOLUM E] IN SERUM OR PLASMA BY CALCULATION 140 mg/dL <99 - 99 09/24 H Specimen Type: PLASMA No comment entered. Ordering Provider: MELISSA DU Report Released Date/Time: September 24, 2022 11:50 AM Reporting Lab: [facility] [address] Performing Lab: [facility] [address] ALIA KENZIE CBOC LIPID PANEL,NON- FASTING CHOLESTEROL IN VLDL [MASS/VOLUM E] IN SERUM OR PLASMA BY CALCULATION 33 mg/dL <29 - 29 09/24 H Specimen Type: PLASMA No comment entered. Ordering Provider: MELISSA DU Report Released Date/Time: September 24, 2022 11:50 AM Reporting Lab: [facility] [address] Performing Lab: [facility] [address] ALIA KENZIE CBOC LIPID PANEL,NON- FASTING CHOLESTEROL NON HDL [MASS/VOLUM E] IN SERUM OR PLASMA 173 mg/dL <129 - 129 09/24 H Specimen Type: PLASMA No comment entered. Ordering Provider: MELISSA DU Report Released Date/Time: September 24, 2022 11:50 AM Reporting Lab: [facility] [address] Performing Lab: [facility] [address] ALIA KENZIE CBOC LIPID PANEL,NON- FASTING TRIGLYCERID E [MASS/VOLUM E] IN SERUM OR PLASMA 164 mg/dL <149 - 149 09/24 H Specimen Type: PLASMA No comment entered. Ordering Provider: MELISSA DU Report Released Date/Time: September 24, 2022 11:50 AM Reporting Lab: [facility] [address] Performing Lab: [facility] [address] ALIA KENZIE CBOC TSH W/REFLEX TO FREE T4 THYROTROPIN [UNITS/VOLU ME] IN SERUM OR PLASMA 1.51 u[IU]/ mL 0.35 - 4.94 09/24 Specimen Type: PLASMA No comment entered. Ordering Provider: MELISSA DU Report Released Date/Time: September 24, 2022 11:50 AM Reporting Lab: [facility] [address] Performing Lab: [facility] [address] ALIA KENZIE CBOC COMPREHENS MATEO METABOLIC PANEL+MG CREATININE [MASS/VOLUM E] IN SERUM OR PLASMA 1.1 mg/dL 0.7 - 1.2 09/24 Specimen Type: PLASMA No comment entered. Ordering Provider: MELISSA DU Report Released Date/Time: September 24, 2022 11:50 AM Reporting Lab: [facility] [address] Performing Lab: [facility] [address] ALIA KENZIE CBOC COMPREHENS MATEO METABOLIC PANEL+MG UREA NITROGEN [MASS/VOLUM E] IN SERUM OR PLASMA 21 mg/dL 8 - 26 09/24 Specimen Type: PLASMA No comment entered. Ordering Provider: MELISSA DU Report Released Date/Time: September 24, 2022 11:50 AM Reporting Lab: [facility] [address] Performing Lab: [facility] [address] ALIA KENZIE CBOC COMPREHENS MATEO METABOLIC PANEL+MG GLUCOSE [MASS/VOLUM E] IN SERUM OR PLASMA 98 mg/dL 70 - 100 09/24 Specimen Type: PLASMA No comment entered. Ordering Provider: MELISSA DU Report Released Date/Time: September 24, 2022 11:50 AM Reporting Lab: [facility] [address] Performing Lab: [facility] [address] ALIA KENZIE CBOC COMPREHENS MATEO METABOLIC PANEL+MG SODIUM [MOLES/VOLU ME] IN SERUM OR PLASMA 138 mmol/L 136 - 145 09/24 Specimen Type: PLASMA No comment entered. Ordering Provider: MELISSA DU Report Released Date/Time: September 24, 2022 11:50 AM Reporting Lab: [facility] [address] Performing Lab: [facility] [address] ALIA KENZIE CBOC COMPREHENS MATEO METABOLIC PANEL+MG POTASSIUM [MOLES/VOLU ME] IN SERUM OR PLASMA 3.8 mmol/L 3.5 - 5.1 09/24 Specimen Type: PLASMA No comment entered. Ordering Provider: MELISSA DU Report Released Date/Time: September 24, 2022 11:50 AM Reporting Lab: [facility] [address] Performing Lab: [facility] [address] ALIA KENZIE CBOC COMPREHENS MATEO METABOLIC PANEL+MG CHLORIDE [MOLES/VOLU ME] IN SERUM OR PLASMA 103 mmol/L 98 - 107 09/24 Specimen Type: PLASMA No comment entered. Ordering Provider: MELISSA DU Report Released Date/Time: September 24, 2022 11:50 AM Reporting Lab: [facility] [address] Performing Lab: [facility] [address] ALIA KENZIE CB[facility] COMPREHENS MATEO METABOLIC PANEL+MG CARBON DIOXIDE, TOTAL [MOLES/VOLU ME] IN SERUM OR PLASMA 27 mmol/L 22 - 29 09/24 Specimen Type: PLASMA No comment entered. Ordering Provider: MELISSA DU Report Released Date/Time: September 24, 2022 11:50 AM Reporting Lab: [facility] [address] Performing Lab: [facility] [address] ALIA KENZIE CB[facility] COMPREHENS MATEO METABOLIC PANEL+MG CALCIUM [MASS/VOLUM E] IN SERUM OR PLASMA 9.1 mg/dL 8.4 - 10.2 09/24 Specimen Type: PLASMA No comment entered. Ordering Provider: MELISSA DU Report Released Date/Time: September 24, 2022 11:50 AM Reporting Lab: [facility] [address] Performing Lab: [facility] [address] ALIA KENZIE CBOC COMPREHENS MATEO METABOLIC PANEL+MG PROTEIN [MASS/VOLUM E] IN SERUM OR PLASMA 7.7 g/dL 6.0 - 8.3 09/24 Specimen Type: PLASMA No comment entered. Ordering Provider: MELISSA DU Report Released Date/Time: September 24, 2022 11:50 AM Reporting Lab: [facility] [address] Performing Lab: [facility] [address] ALIA KENZIE CBOC COMPREHENS MATEO METABOLIC PANEL+MG ALBUMIN [MASS/VOLUM E] IN SERUM OR PLASMA 4.4 g/dL 3.5 - 5.2 09/24 Specimen Type: PLASMA No comment entered. Ordering Provider: MELISSA DU Report Released Date/Time: September 24, 2022 11:50 AM Reporting Lab: [facility] [address] Performing Lab: [facility] [address] ALIA KENZIE CBOC COMPREHENS MATEO METABOLIC PANEL+MG BILIRUBIN.T OTAL [MASS/VOLUM E] IN SERUM OR PLASMA 0.7 mg/dL 0.2 - 1.2 09/24 Specimen Type: PLASMA No comment entered. Ordering Provider: MELISSA DU Report Released Date/Time: September 24, 2022 11:50 AM Reporting Lab: [facility] [address] Performing Lab: [facility] [address] ALIA KENZIE CBOC COMPREHENS MATEO METABOLIC PANEL+MG MAGNESIUM [MASS/VOLUM E] IN SERUM OR PLASMA 2.0 mg/dL 1.6 - 2.6 09/24 Specimen Type: PLASMA No comment entered. Ordering Provider: MELISSA DU Report Released Date/Time: September 24, 2022 11:50 AM Reporting Lab: [facility] [address] Performing Lab: [facility] [address] ALIA KENZIE CBOC COMPREHENS MATEO METABOLIC PANEL+MG ANION GAP IN SERUM OR PLASMA 8 mmol/L 5 - 15 09/24 Specimen Type: PLASMA No comment entered. Ordering Provider: MELISSA DU Report Released Date/Time: September 24, 2022 11:50 AM Reporting Lab: [facility] [address] Performing Lab: [facility] [address] ALIA KENZIE CBOC COMPREHENS MATEO METABOLIC PANEL+MG ALKALINE PHOSPHATASE [ENZYMATIC ACTIVITY/VO LUME] IN SERUM OR PLASMA 31 U/L 40 - 150 09/24 L Specimen Type: PLASMA No comment entered. Ordering Provider: MELISSA DU Report Released Date/Time: September 24, 2022 11:50 AM Reporting Lab: [facility] [address] Performing Lab: [facility] [address] ALIA KENZIE CB[facility] COMPREHENS MATEO METABOLIC PANEL+MG ALANINE AMINOTRANSF ERASE [ENZYMATIC ACTIVITY/VO LUME] IN SERUM OR PLASMA 32 U/L <55 - 55 09/24 Specimen Type: PLASMA No comment entered. Ordering Provider: MELISSA DU Report Released Date/Time: September 24, 2022 11:50 AM Reporting Lab: [facility] [address] Performing Lab: [facility] [address] ALIA KENZIE CB[facility] COMPREHENS MATEO METABOLIC PANEL+MG ASPARTATE AMINOTRANSF ERASE [ENZYMATIC ACTIVITY/VO LUME] IN SERUM OR PLASMA 22 U/L <34 - 34 09/24 Specimen Type: PLASMA No comment entered. Ordering Provider: MELISSA DU Report Released Date/Time: September 24, 2022 11:50 AM Reporting Lab: [facility] [address] Performing Lab: [facility] [address] ALIA KENZIE [facility] COMPREHENS MATEO METABOLIC PANEL+MG GLOMERULAR FILTRATION RATE/1.73 SQ M.PREDICTED [VOLUME RATE/AREA] IN SERUM, PLASMA OR BLOOD BY CREATININE- BASED FORMULA (CKD-EPI) >90 60 09/24 Specimen Type: PLASMA No comment entered. Ordering Provider: MELISSA DU Report Released Date/Time: September 24, 2022 11:50 AM Reporting Lab: [facility] [address] Performing Lab: [facility] [address] [facility] K[facility] Vital Signs Combined list of inpatient and outpatient Vital Signs from Department of Defense and Veterans Affairs, ranging from 12 months to all on record, depending upon the facility. Vital Sign Value Date Comments Source SYSTOLIC BLOOD PRESSURE 124 10/10/2023 10:06:35 [facility] DIASTOLIC BLOOD PRESSURE 85 10/10/2023 10:06:35 [facility] PULSE OXIMETRY 96 10/10/2023 10:06:35 A [facility]ERT [facility] WEIGHT 280 10/10/2023 10:06:35 [facility] BMI 41kg/m2 10/10/2023 10:06:35 [facility] PAIN 7 10/10/2023 10:06:35 [facility] TEMPERATURE 97.6 10/10/2023 10:06:35 ALBE [facility] PULSE 77 10/10/2023 10:06:35 [facility] RESPIRATION 14 10/10/2023 10:06:35 [facility] Encounters Combined list of: 1) Encounters from Department of Veterans Affairs facilities going back up to thelast 18 months. 2) Encounters from the Department of Defense facilities going back up to 280 months. Location Location Details Encounter Type Encounter Number Reason For Visit Attending Provider ADM Date DC Date Status Disposition Source Medical Group([facility] C Post Immunizat ion) OUTPATIENT [id number] IET PPD JESUS MILNER 09/14 Released w/o Limitations Medical Group(M [facility] Post Immuniz ation) Medical Group(IEP Hearing Conservat ion) OUTPATIENT [id number] JE THOMPSON 09/14 Released w/o Limitations Medical Group(I EP Hearing Conserv ation) Medical Group(PES Optometry -Trainee) OUTPATIENT [id number] ROSCOE DOWNS 09/19 Released w/o Limitations Medical Group(P ES Optomet ry-Delfino nee) Medical Group([facility] C Immediate Care Clinic) OUTPATIENT [id number] 18 y/o M SIT c/o Fever/S inus LASHAY Thomson 11/05 Sick at Home/Quarter s Medical Group([facility] Immedia te Care Clinic) Medical Group(C Ambulator y) OUTPATIENT [id number] VASQUEZ PAT *PA* 11/06 Sick at Home/Quarter s [facility] Medical Group(T MC Ambulat ory) NOAM Olivo([facility] General Medicine) OUTPATIENT [id number] foot pain JESSICA ORELLANA 06/07 Released with Work/Duty Limitations NOAM [facility] General Medicin e) NOAM Olivo(Clinic al Dietetics ) OUTPATIENT [id number] [employer] ESTELA GR HALLE 07/18 Released w/o Limitations [facility](Clin ical Dieteti cs) NOAM Olivo(Physic al Therapy) OUTPATIENT [id number] 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 TAJTOLU LOVE 07/25 Released w/o Limitations [facility]AM [facility](Phys ical Therapy ) NOAM [facility](Clinic al Dietetics ) OUTPATIENT [id number] f/uArmy MOVE, session 9 keep it going RACHEL BEASLEY 08/01 Released w/o Limitations [facility](Clin ical Dieteti cs) [facility](Clinic al Dietetics ) OUTPATIENT [id number] f/u [employer] Session 3 RACHEL BEASLEY K 08/15 Released w/o Limitations [facility](Clin ical Dieteti cs) NOAM [facility]ivo(Physic al Therapy) OUTPATIENT [id number] [employer] MOVES CLASS TOLU PUENTES 08/29 Released w/o Limitations NOAM [facility]ivo(Phys ical Therapy ) NOAM Olivo(Clinic al Dietetics ) OUTPATIENT [id number] f/u [employer], Session 5 ESTELA GR 09/07 Released w/o Limitations NOAM [facility]ivo(Clin ical Dieteti cs) [facility]AM [facility](Clinic al Dietetics ) OUTPATIENT [id number] f/u [employer], Session 7, tip the balance RACHEL BEASLEY K 09/19 Released w/o Limitations NOAM [facility](Clin ical Dieteti cs) NOAM Olivo([facility]) OUTPATIENT [id number] DEBRA RAYA 12/05 Immediate Referral [facility]AM [facility]) NOAM Olivo([facility] General Medicine) OUTPATIENT [id number] lesion on shaft of penis ESTEBAN, JESSICA E 12/06 Released w/o Limitations NOAM Olivo([facility] General Medicin e) NOAM Olivo(Hearin g Conservat ion 2) OUTPATIENT [id number] Hearing Exam ALKA ESPINOSA 12/26 Released w/o Limitations NOAM Olivo(Hear ing Conserv ation 2) NOAM Olivo([facility]) OUTPATIENT [id number] asthma, not control led LUISA DOTSON 03/20 Released w/o Limitations NOAM Olivo([facility]) Theater Facility OUTPATIENT [id number] 07/18 Released w/o Limitations Theater Facilit y Theater Facility OUTPATIENT [id number] 08/13 Released with Work/Duty Limitations Theater Facilit y NOAM Olivo(Deploy ment) OUTPATIENT [id number] Luis Enrique FLORES ABS,VIS MABEL SOLITARIO Anisha 03/22 Released w/o Limitations NOAM Olivo(Depl oyment) NOAM Olivo([facility]) OUTPATIENT [id number] BROWNLISANDRA 05/09 Released w/o Limitations NOAM Olivo([facility]) NOAM Olivo([facility] 2) OUTPATIENT [id number] rash on hands MARK, DAVID T. 06/04 Released w/o Limitations NOAM Olivo([facility] 2) NOAM Olivo([facility] 2) TELE CONSULT [id number] Over weight program , nutrito n referra l MARK, DAVID T. 06/28 NOAM Olivo([facility]3J [facility] 2) NOAM Olivo(Clinic al Dietetics ) OUTPATIENT [id number] [employer] M[employer] ESTELA GR 07/10 Released w/o Limitations NOAM Olivo(Clin ical Dieteti cs) NOAM Olivo([facility] 2) OUTPATIENT [id number] rash on face MARK, DAVID T. 07/19 Released w/o Limitations NOAM Olivo([facility] 2) NOAM Olivo([facility] 2) OUTPATIENT [id number] rash on face MARK, DAVID T. 07/23 Released w/o Limitations NOAM Olivo([facility] M03J [facility] 2) NOAM Olivo([facility] 2) OUTPATIENT [id number] f/u eye infecti on MARK, DAVID T. 07/28 Released w/o Limitations NOAM Olivo([facility] M03J [facility] 2) NOAM Olivo([facility] 2) OUTPATIENT [id number] Follow up eye infecti on MARK, DAVID T. 08/01 Released w/o Limitations NOAM Olivo([facility] 2) NOAM Olivo(Clinic al Dietetics ) OUTPATIENT [id number] F/U [employer], Module 2 JULISA MCKEON 08/07 Released w/o Limitations NOAM [facility]ivo(Clin ical Dieteti cs) NOAM Olivo([facility] 2) OUTPATIENT [id number] Browne Splints , LBP, Plantar pain DAVID FLORES T. 08/11 Released w/o Limitations NOAM Olivo([facility] 2) NOAM Olivo(Hearin g Conservat ion) OUTPATIENT [id number] Hearing Exam FRANCISCA TRISTONCLAUDIA Baker 08/13 Released w/o Limitations NOAM [facility]ivo(Hear ing Conserv ation) NOAM Olivo(Deploy ment) OUTPATIENT [id number] PDHRA/V EVENS HANSON 08/13 Released w/o Limitations NOAM Olivo(Depl oyment) NOAM Olivo([facility] 2) OUTPATIENT [id number] Acute LBP DAVID FLORES T. 08/25 Released w/o Limitations NOAM Olivo([facility] 2) NOAM Olivo([address] [facility] 3) OUTPATIENT [id number] Chapter 18 RAI, CHELO L 09/30 Released w/o Limitations NOAM Olivo([address] [facility] 3) NOAM Olivo([facility] Opto) OUTPATIENT [id number] chapter physica l LOLA KELLY T 10/01 Released w/o Limitations NOAM Olivo([facility] Opto) NOAM Olivo([facility] 2) OUTPATIENT [id number] phase 2, chapter DAVID FLORES T. 10/14 Released w/o Limitations NOAM Olivo([facility] 2) NOAM Olivo(Deploy ment) OUTPATIENT [id number] [place] JEFF[place] E 10/22 Released w/o Limitations NOAM [facility]ivo(Depl oyment) NOAM Olivo([facility]) OUTPATIENT [id number] lower back pain JOSE MANUEL, CAITIE M 10/28 Released w/o Limitations NOAM Olivo([facility] Chiro) NOAM Olivo([facility] Chiro) OUTPATIENT [id number] lbp JOSE MANUEL, CAITIE M 11/17 Released w/o Limitations NOAM Olivo([facility] Chiro) NOAM Olivo([facility]) OUTPATIENT [id number] lbp JOSE MANUEL, CAITIE M 11/21 Released w/o Limitations NOAM Olivo([facility]) NOAM Olivo([address] 2) OUTPATIENT [id number] lower back pain MARKDAVID T. 11/21 Released w/o Limitations NOAM Olivo([address] 2) NOAM Olivo([facility]) OUTPATIENT [id number] lumbar PRETTY, SANDRO E 12/03 Released w/o Limitations NOAM Olivo([facility]) NOAM Olivo([facility]) OUTPATIENT [id number] lbp JOSE MANUEL, CAITIE M 12/07 Released w/o Limitations NOAM Olivo([facility]) [place] [facility] Outpatient Encounter [id number] 01/08 [place] [facility] [place] [facility] Out[place] Encounter [id number] 02/20 [place] [facility] [place] [facility] Outpatient Encounter [id number] SIDRA SOUZA 04/29 [place] [facility] [place] [facility] Out[place] Encounter [id number] SIDRA SOUZA 04/29 [place] [facility] [place] [facility] Outpatient Encounter [id number] MARYA KELLER BARBARA J 04/29 [facility] [place] [facility] Outpatient [facility]counter [id number] JAXONMARIBELL Baker M 05/02 [facility] [place] [facility] Outpatient Encounter [id number] 08/10 [facility] [place] [facility] Outpatient Encounter [id number] 08/20 [facility] [place] [facility] Outpatient Encounter [id number] CHETNA MERCEDES 09/04 [facility] Outpatient Encounter [id number] Diagnos is: ICD-10- CM Z77.110 Contact with and (suspec silvano) exposur e to air polluti on
FLACA INFANTE 09/07 [facility] Outpatient Encounter [id number] 09/16 [facility] Outpatient Encounter [id number] 09/22 [facility] Outpatient Encounter [id number] 10/01 [facility] Outpatient Encounter [id number] AMOS DU 10/09 [facility] OFFICE O/P EST HI 40 MIN [id number] Diagnos is: ICD-10- CM G47.30 Sleep apnea, unspeci fied
AMOS DU 10/09 [facility] HEMOGLOBIN [id number] Diagnos is: ICD-10- CM Z77.9 Oth contact w and (suspec silvano) exposur es hazardo [facility]< br/> WRZOS,JHON SANTOS FANY 10/16 [place] [place] [facility] Outpatient Encounter [id number] 10/16 [place] [facility] Outpatient Encounter [id number] 10/27 [facility] [place] [facility] Outpatient Encounter [id number] SIDRA SOUZA 12/28 [place] [facility] [place] [facility] Outpatient Encounter [id number] SIDRA SOUZA 12/28 [place] [facility] [place] [facility] Outpatient Encounter [id number] BAIRON MCDONNELL 01/07 [place] [facility] [place] [facility] Outpatient Encounter [id number] SIDRA SOUZA 01/11 [place] [facility] [place] [facility] Outpatient Encounter [id number] SIDRA SOUZA 01/11 [place] [facility] [place] [facility] Outpatient Encounter [id number] 01/11 [place] [facility] [place] [facility] Outpatient Encounter [id number] SIDRA SOUZA 02/09 [place] [facility] [place] [facility] Outpatient Encounter [id number] SIDRA SOUZA 02/09 [place] [facility] [place] [facility] Outpatient Encounter [id number] 02/10 [place] [facility] [place] [facility] Outpatient Encounter [id number] 02/18 [place] [facility] [place] [facility] UNLISTED PULMONARY SVC/PX [id number] Diagnos is: ICD-10- CM G47.30 Sleep apnea, unspeci fied
AZAM HANNA 02/23 [place] [facility] [place] [facility] Outpatient Encounter [id number] 02/26 [place] [facility] [place] [facility] Outpatient Encounter [id number] 03/01 [place] [facility] [place] [facility] Outpatient Encounter [id number] BAIRON MCDONNELL ICA S 03/25 [place] [facility] [place] [facility] Outpatient Encounter [id number] BAIRON MCDONNELL ICA S 03/25 [facility] Procedures Combined list of: 1) Procedures from Department of Veterans Affairs facilities going back up to thelast 18 months, not all [place] non-surgical procedures are included; 2) All procedures from the Department of Defense facilities. Procedure Procedure Type Code Date Perfomer Comments Sourc e VIS FUNCT SCREEN,AUTOMAT/SEMI- AUTOMAT BILAT QUANT DETERM VISUAL ACUITY,OCULAR ALIGN,COLOR VISION,PSEUDOISOCHRO MAT PLATES,& FIELD VIS (MAY INC ALL/SOME SCRN DETERM FOR CONTRAST SENSITIV,VIS UND GLARE) 9 [facility] ANALYSIS OF CLINICAL DATA STORED IN COMPUTERS (EG, ECGS, BLOOD PRESSURES, HEMATOLOGIC DATA) 9 DoD IMMUNIZATION ADMINISTRATION (INCLUDES PERCUTANEOUS, INTRADERMAL, SUBCUTANEOUS, OR INTRAMUSCULAR INJECTIONS); 1 VACCINE (SINGLE OR COMBINATION VACCINE/TOXOID) 9 DoD CHIROPRACTIC MANIPULATIVE TREATMENT (CMT); SPINAL, 1-2 REGIONS 2 DoD PHYSICAL THERAPY EVALUATION 2 DoD CHIROPRACTIC MANIPULATIVE TREATMENT (CMT); SPINAL, 3-4 REGIONS 2 DoD CHIROPRACTIC MANIPULATIVE TREATMENT (CMT); SPINAL, 1-2 REGIONS 2 DoD CHIROPRACTIC MANIPULATIVE TREATMENT (CMT); SPINAL, 1-2 REGIONS 2 DoD SCREENING TEST OF VISUAL ACUITY, QUANTITATIVE, BILATERAL 2 DoD PSYCHIATRIC DIAGNOSTIC INTERVIEW EXAMINATION 2 [facility] SCREENING TEST OF VISUAL ACUITY, QUANTITATIVE, BILATERAL 2 DoD AUDIOMETRIC TESTING OF GROUPS 2 DoD MEDICAL NUTRITION THERAPY; GROUP (2 OR MORE INDIVIDUAL(S)), EACH 30 MINUTES 2 DoD INDIVIDUAL PSYCHOTHERAPY, INSIGHT ORIENTED, BEHAVIOR MODIFYING AND/OR SUPPORTIVE, IN AN OFFICE OR OUTPATIENT FACILITY, APPROXIMATELY 45 TO 50 MINUTES [id number] WITH THE PATIENT 2 [facility] PSYCHIATRIC DIAGNOSTIC INTERVIEW EXAMINATION 2 [facility] MEDICAL NUTRITION THERAPY; GROUP (2 OR MORE INDIVIDUAL(S)), EACH 30 MINUTES 2 [facility] SCREENING TEST OF VISUAL ACUITY, QUANTITATIVE, BILATERAL 1 DoD COLLECTION OF VENOUS BLOOD BY VENIPUNCTURE 0 [facility] EAR PROTECTOR ATTENUATION MEASUREMENTS 0 DoD SKIN TEST; TUBERCULOSIS, INTRADERMAL 0 [facility] SCREENING TEST OF VISUAL ACUITY, QUANTITATIVE, BILATERAL 0 DoD APPLICATION OF SURFACE (TRANSCUTANEOUS) NEUROSTIMULATOR (EG, TENS UNIT) 0 [facility] PSYCHIATRIC DIAGNOSTIC INTERVIEW EXAMINATION 0 DoD APPLICATION OF SURFACE (TRANSCUTANEOUS) NEUROSTIMULATOR (EG, TENS UNIT) 0 DoD INDIVIDUAL PSYCHOTHERAPY, INSIGHT ORIENTED, BEHAVIOR MODIFYING AND/OR SUPPORTIVE, IN AN OFFICE OR OUTPATIENT FACILITY, APPROXIMATELY 45 TO 50 MINUTES [id number] W THE PATIENT; W MED EVAL & MGT SER 0 DoD APPLICATION OF SURFACE (TRANSCUTANEOUS) NEUROSTIMULATOR (EG, TENS UNIT) 0 DoD APPLICATION OF SURFACE (TRANSCUTANEOUS) NEUROSTIMULATOR (EG, TENS UNIT) 0 DoD APPLICATION OF SURFACE (TRANSCUTANEOUS) NEUROSTIMULATOR (EG, TENS UNIT) 0 [facility] PSYCHIATRIC DIAGNOSTIC INTERVIEW EXAMINATION 0 [facility] WEIGHT MANAGEMENT CLASSES, NON-PHYSICIAN PROVIDER, PER SESSION 0 [facility] MEDICAL NUTRITION THERAPY; GROUP (2 OR MORE INDIVIDUAL(S)), EACH 30 MINUTES 0 [facility] EDUCATION &TRAINING, PATIENT SELF-MGT QUALIFIED, NONPHYSICIAN HEALTH AIRCRAFT DELIVERY CHECKER USING STANDARDIZED CURRICULUM, [id number] W THE PATIENT (COULD INCL CAREGIVER/FAMILY) EA 30 MIN; 5-8 PATIENTS 0 [facility] WEIGHT MANAGEMENT CLASSES, NON-PHYSICIAN PROVIDER, PER SESSION 0 [facility] INTERACTIVE GROUP PSYCHOTHERAPY 0 [facility] WEIGHT MANAGEMENT CLASSES, NON-PHYSICIAN PROVIDER, PER SESSION 0 [facility] EDUCATION &TRAINING, PATIENT SELF-MGT QUALIFIED, NONPHYSICIAN HEALTH AIRCRAFT DELIVERY CHECKER USING STANDARDIZED CURRICULUM, [id number] W THE PATIENT (COULD INCL CAREGIVER/FAMILY) EA 30 MIN; 5-8 PATIENTS 0 [facility] HEPATITIS A AND HEPATITIS B VACCINE (HEPA-HEPB), ADULT DOSAGE, FOR INTRAMUSCULAR USE 0 [facility] SCREENING TEST OF VISUAL ACUITY, QUANTITATIVE, BILATERAL 0 [facility] NUTRITION CLASSES, NON-PHYSICIAN PROVIDER, PER SESSION 0 [facility] COLLECTION OF VENOUS BLOOD BY VENIPUNCTURE 9 [facility] SCREENING TEST OF VISUAL ACUITY, QUANTITATIVE, BILATERAL 9 [facility] Chiropractic Manip Treatmt (CMT) Spinal One To Two Regions Chiropractic Manip Treatmt (CMT) Spinal One To Two Regions 92226 2 CAITIE RICHARD [facility] PT A e ment Kinetic Training PT Assessment Kinetic Training 86206 2 SANDRO PRETTY [facility] Physical Therapy Service Evaluation Physical Therapy Service Evaluation 16774 2 SANDRO PRETTY [facility] Chiropractic Manip Treatmt (CMT) Spinal Three To Four Region Chiropractic Manip Treatmt (CMT) Spinal Three To Four Region 71799 2 CAITIE RICHARD [facility] Chiropractic Manip Treatmt (CMT) Spinal One To Two Regions Chiropractic Manip Treatmt (CMT) Spinal One To Two Regions 03433 2 CAITIE RICHARD [facility] Chiropractic Manip Treatmt (CMT) Spinal One To Two Regions Chiropractic Manip Treatmt (CMT) Spinal One To Two Regions 77143 2 CAITIE RICHARD [facility] Screening Test Of Visual Acuity, Quantitative, Bilateral Screening Test Of Visual Acuity, Quantitative, Bilateral 62305 2 LOLA KELLY [facility] Psychiatric Diagnostic Evaluation Comprehensive Examination Psychiatric Diagnostic Evaluation Comprehensive Examination 93330 2 TOÑITO BERNARD [facility] Audiogram (Screening) Audiogram (Screening) 80833 2 ALKA ESPINOSA [facility] Audiometry Group Testing Audiometry Group Testing 25250 2 ALKA ESPINOSA [facility] Screening Test Of Visual Acuity, Quantitative, Bilateral Screening Test Of Visual Acuity, Quantitative, Bilateral 94240 2 ACOSTAROMARIO [facility] Medical Nutrition Therapy Group (2 or More Individuals) Each 30 Minutes Medical Nutrition Therapy Group (2 or More Individuals) Each 30 Minutes 58738 2 SIMÓN ESTELA HALLE [facility] Clinical Social Work Individual Outpatient Counseling 45 Minutes Clinical Social Work Individual Outpatient Counseling 45 Minutes 13217 2 SOLA PATEL [facility] Psychiatric Diagnostic Evaluation Comprehensive Examination Psychiatric Diagnostic Evaluation Comprehensive Examination 71838 2 SOLA PATEL [facility] Medical Nutrition Therapy Group (2 or More Individuals) Each 30 Minutes Medical Nutrition Therapy Group (2 or More Individuals) Each 30 Minutes 43499 2 GAMALIEL ALLEN [facility] Venipuncture Venipuncture 32090 1 DIANAROMARIO [facility] Screening Test Of Visual Acuity, Quantitative, Bilateral Screening Test Of Visual Acuity, Quantitative, Bilateral 41415 1 DIANALAURIEROMARIO DoD Audiogram (Screening) Audiogram (Screening) 24601 0 ALKA ESPINOSA [facility] Audiometry Group Testing Audiometry Group Testing 03617 0 ALKA ESPINOSA [facility] Ear Protector Attenuation Measurements Ear Protector Attenuation Measurements 49691 0 ALKA ESPINOSA [facility] Install Peripheral Transcutaneous Neurostimulator Install Peripheral Transcutaneous Neurostimulator 08487 0 AJ CROSS [facility] Psychiatric Diagnostic Evaluation Comprehensive Examination Psychiatric Diagnostic Evaluation Comprehensive Examination 70259 0 JATIN OPRTER DoD Install Peripheral Transcutaneous Neurostimulator Install Peripheral Transcutaneous Neurostimulator 37841 0 AJ CROSS Psychotherapy Indiv Approx 45 Min W/ Medical Evaluation & Management Psychotherapy Indiv Approx 45 Min W/ Medical Evaluation & Management 10565 0 CARLOS TIJERINA DoD Install Peripheral Transcutaneous Neurostimulator Install Peripheral Transcutaneous Neurostimulator 02283 0 AJ CROSS Install Peripheral Transcutaneous Neurostimulator Install Peripheral Transcutaneous Neurostimulator 02099 0 AJ CROSS [facility] Install Peripheral Transcutaneous Neurostimulator Install Peripheral Transcutaneous Neurostimulator 54208 0 DEAN LYN [facility] Psychiatric Diagnostic Evaluation Comprehensive Examination Psychiatric Diagnostic Evaluation Comprehensive Examination 01664 0 ZHENGKARSTENANGEL CARLOTA L [facility] Medical Nutrition Therapy Group (2 or More Individuals) Each 30 Minutes Medical Nutrition Therapy Group (2 or More Individuals) Each 30 Minutes 66245 0 BEASLEY, RACHEL K [facility] Weight management cla es, non-physician provider, per se ion 0 BEASLEY, RACHEL K [facility] Medical Nutrition Therapy Group (2 or More Individuals) Each 30 Minutes Medical Nutrition Therapy Group (2 or More Individuals) Each 30 Minutes 24357 0 ESTELA GR [facility] Weight management cla es, non-physician provider, per se ion 0 ESTELA GR [facility] Patient Counseling Medical Management Five To Eight Patients Patient Counseling Medical Management Five To Eight Patients 23283 0 TOLU BOLANOS [facility] Medical Nutrition Therapy Group (2 or More Individuals) Each 30 Minutes Medical Nutrition Therapy Group (2 or More Individuals) Each 30 Minutes 40295 0 BEASLEY, RACHEL K [facility] Weight management cla es, non-physician provider, per se ion 0 BEASLEY, RACHEL K [facility] Clinical Social Work Counseling Group Clinical Social Work Counseling Group 50073 0 BRENDA GOMEZ [facility] Medical Nutrition Therapy Group (2 or More Individuals) Each 30 Minutes Medical Nutrition Therapy Group (2 or More Individuals) Each 30 Minutes 46561 0 BEASLEY, RACHEL K [facility] Weight management cla es, non-physician provider, per se ion 0 BEASLEY RACHEL K [facility] Patient Counseling Medical Management Five To Eight Patients Patient Counseling Medical Management Five To Eight Patients 23983 0 TOLU BOLANOS [facility] Nutrition cla es, non-physician provider, per se ion 0 ESTELA GR [facility] Medical Nutrition Therapy Group (2 or More Individuals) Each 30 Minutes Medical Nutrition Therapy Group (2 or More Individuals) Each 30 Minutes 21232 0 ESTELA GR [facility] Visual Function Screening Visual Function Screening 81069 9 ROSCOE DOWNS [facility] Ear Protector Attenuation Measurements Ear Protector Attenuation Measurements 77000 9 JE THOMPSON Threshold Audiogram (Pure Tone) Threshold Audiogram (Pure Tone) 06128 9 JE THOMPSON Audiometry Group Testing Audiometry Group Testing 76925 9 JE THOMPSON Physician Supervised Group Educational Services 9 JE THOMPSON Special Physician Services Analysis Of Computerized Data Special Physician Services Analysis Of Computerized Data 97711 9 JE THOMPSON Ear mold/insert, not disposable, any type 9 JE THOMPSON Immunization Administration By Injection, One Vaccine Immunization Administration By Injection, One Vaccine 33843 9 JAXON DARBY [facility] Social History Combined list of available smoking, tobacco, and other social history from Department of Defense and Veterans Affairs facilities. Social History Type Response Date Comment Sour e Tobacco smoking status SDIS [facility] NEVER USED 10/10/19 24 [facility] History of tobacco use [facility]-TOBACCO NEVER USED 09/24/2022 [facility] History of tobacco use [facility]-TO[facility]ACCO NEVER USED 11/22/2021 [facility] History of tobacco use [place] FORMER USER 11/07/2020 [facility] This section is an empty social history section. DoD
--- OUTSIDE RECORDS SUMMARY | 2024-06-06 17:23 | XMS_ITS | Continuity of Care Document ---
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
--- OUTSIDE RECORDS SUMMARY | 2024-06-06 17:23 | XMS_ITS | Encounter Summary ---
Author Name [facility] [place] [facility] [place] Address [address] [place] [address] Care Team Providers Care Psychology Clinician Name Role Phone LIN DU Primary Care Provider Unavailabl e Insurance Providers: All historical and current Section Date Range: From patient's date of to the date document was created. This section includes the names of all active insurance providers for the patient. Insurance Provider Type of Coverage Plan Name Start of Policy Coverage End of Policy Coverage Group Number Member ID Insurance Provider's Telephone Number Policy Owen's Name Patient's Relationship to Policy Owen [place] PREFERRED PROVIDER ORGANIZAT ION (PPO) LALA CHATMAN [place] ADMIN Jul 24, 2021 [id number] [phone] KODY DOSS PATIENT [place] PREFERRED PROVIDER ORGANIZAT ION (PPO) AI FRIAS ADMIN Jul 24, 2021 [id number] [phone] KODY DOSS PATIENT PRIME THERAPEUTI CS PRESCRIPT ION BCBSI L Jul 24, 2021 BCBS[place] [id number] KODY DOSS PATIENT Selected Encounter This section includes the information on record at [place] for the Encounter. Date/Time Encounter Type Encounter Description Reason Provider Source October 10, 2023 10:00 AM OFFICE O/P EST HI 40 MIN PRIMARY CARE/MEDICINE ICD-10-CM G47.30 Sleep apnea, unspecified LIN DU IHKuldeep Encounter Template Text not used by [place] Assessments - Encounter Diagnoses This section includes the primary and secondary diagnoses documented for the Encounter. Date/Time Primary/Secondary Diagnosis Diagnosis Name Provider Source October 10, 2023 10:50 AM PRIMARY Sleep apnea, unspecified AVSCONNECTOR,BRENDAN AHUJAWilbur BURGOS October 10, 2023 10:50 AM SECONDARY Encounter for general adult medical exam w abnormal findings AVSCONNECTOR,BRENDAN ESPINO AUBREY October 10, 2023 10:50 AM SECONDARY Fatty (change of) liver, not elsewhere classified AVSCONNECTOR,BRENDAN AHUJAWilbur BURGOS October 10, 2023 10:50 AM SECONDARY Low back pain, unspecified AVSCONNECTOR,BRENDAN ESPINO AUBREY October 10, 2023 10:50 AM SECONDARY Obesity, unspecified AVSCONNECTOR,BRENDAN Baker ALIA K[facility]ZIE BURGOS Plan of Treatment: Future Appointments (+ 6 months) and Future Tests (+/- 45 days) The Plan of Treatment section includes future care activities for the patient [facility] [place] [facility] This section includes future appointments and future orders which are active, pending or scheduled. Future Appointments This section includes appointments that were scheduled to occur 6 months from the date of the Encounter, up to a maximum of 20 appointments. The data comes from all [place] treatment facilities. Appointment Date/Time Appointment Type Appointme nt Facility Name October 17, 2023 09:00 AM AMBULATORY - MEDICINE [facility] October 17, 2023 10:00 AM AMBULATORY - [facility] Feb 24, 2024 01:00 PM AMBULATORY - MEDICINE [facility] Lab Results: +/- 30 days of the encounter This section includes the Chemistry and Hematology Lab Results on record with [place] for the patient. Radiology Reports and Pathology Reports are provided separately, in subsequent sections. Lab Results This section contains the Chemistry/Hematology Results that were resulted 30 days before or 30 daysafter the date of the Encounter. Date/Time Source Result Type Result - Unit Interpretation Reference Range Comment October 10, 2023 10:44 AM ALIA ESPINO CB COMPREHENSIVE METABOLIC PANEL+MG Specimen Type: PLASMA Comment: Elevated triglyceride result from a non-fasting specimen should be interpreted with caution. A fasting panel is recommended for accurate triglycerides when trigs are >200 from a non-fasting specimen. Ordering Provider: LIN DU Report Released Date/Time: October 10, 2023 10:28 AM Reporting Lab: [facility] [id number] Performing Lab: [facility] [id number] CREATININE 1.2 mg/dL 0.7-1.2 UREA NITROGEN 21 mg/dL 8-26 GLUCOSE 92 mg/dL 70-100 SODIUM 138 mmol/L 136-145 POTASSIUM 4.0 mmol/L 3.5-5.1 CHLORIDE 105 mmol/L 98-107 CO2 23 mmol/L 22-29 CALCIUM 9.2 mg/dL 8.4-10.2 PROTEIN,TOTAL 7.5 g/dL 6.0-8.3 ALBUMIN 4.2 g/dL 3.5-5.2 BILIRUBIN, TOTAL 0.6 mg/dL 0.2-1.2 MAGNESIUM 1.9 mg/dL 1.6-2.6 ANION GAP 10 mmol/L 5-15 ALKALINE PHOSPHATASE 30 U/L L 40-150 ALT/SGPT 37 U/L <55 AST/SGOT 25 U/L <34 .CREAT EGFR(CKD-EPI) 81 >60 October 10, 2023 10:44 AM ALIA ESPINO CB CBC Specimen Type: BLOOD No comment entered. Ordering Provider: LIN DU Report Released Date/Time: October 10, 2023 10:28 AM Reporting Lab: [facility] [id number] Performing Lab: [facility] [id number] WBC 6.89 10*3/uL 4.0-11.0 RBC 4.91 10*6/uL 4.6-6.2 HGB 14.9 g/dL 13.5-17.9 HCT 42.0 41-54 MCV 85.5 fL 80-100 MCH 30.3 pg 27-33 MCHC 35.5 g/dL 32.0-37.5 PLT 336 10*3/uL 150-400 MPV 10.0 fL 7.4-10.4 RDW 11.9 11.5-14.5 October 10, 2023 10:44 AM ALIA BURGOS HEMOGLOBIN A1C Specimen Type: BLOOD Comment: Values obtained from A1C measurements can vary. For typical A1C assays, a reported value of 7.0 could actually be between 6.7 and 7.3 if measured by a reference method. A reported value of 9.0 could actually be between 8.7 and 9.3. Ref: http://www.ngsp .org/CAPdata.as p Ordering Provider: LIN DU Report Released Date/Time: October 10, 2023 10:28 AM Reporting Lab: [facility] [phone] Performing Lab: [facility] [id number] HEMOGLOBIN A1C 5.4 4.0-6.0 October 10, 2023 10:44 AM ALIA BURGOS LIPID PANEL,NON-FASTING Specimen Type: PLASMA Comment: Elevated triglyceride result from a non-fasting specimen should be interpreted with caution. A fasting panel is recommended for accurate triglycerides when trigs are >200 from a non-fasting specimen. Ordering Provider: LIN DU Report Released Date/Time: October 10, 2023 10:28 AM Reporting Lab: [facility] [id number] Performing Lab: [facility] [id number] CHOLESTEROL 212 mg/dL H <199 .HDL 36 mg/dL L >40 LDL CALCULATION 126 mg/dL H <99 VLDL CALCULATION 50 mg/dL H <29 NON HDL CHOLESTEROL 176 mg/dL H <129 TRIG(NON FASTING) 249 mg/dL H <149 October 10, 2023 10:44 AM AILA BURGOS TSH W/REFLEX TO FREE T4 Specimen Type: PLASMA Comment: Elevated triglyceride result from a non-fasting specimen should be interpreted with caution. A fasting panel is recommended for accurate triglycerides when trigs are >200 from a non-fasting specimen. Ordering Provider: LIN DU Report Released Date/Time: October 10, 2023 10:28 AM Reporting Lab: [facility] [phone] Performing Lab: [facility] [id number] TSH 1.71 u[IU]/mL 0.35-4.94 Vital Signs: All taken on the encounter date This section contains inpatient and outpatient Vital Signs collected on the date of the Encounter. Date/Time Temperature Pulse Blood Pressure Respiratory Rate SP02 Pain Height Weight Body Mass Index Source October 10, 2023 10:06 AM 97.6 77 124/85 14 96 7 280 41 [facility] Social History: Smoking Status (Most current) and Tobacco Use (All prior to encounter date) This section includes the most current, and the historical, smoking and tobacco- related health factors from the [place] facility where the Encounter took place. Current Smoking Status This section includes the most current smoking, or tobacco-related health factor, from the [place] facility where the Encounter took place. Date/Time Current Smoking Status Comment Iain ity October 10, 2023 10:00 AM VA-TOBACCO NEVER USED [facility] Tobacco Use History This section includes a history of the smoking, or tobacco-related health factors, that were collected on or before the date of the Encounter. The data comes from the [place] facility where the Encounter took place. Date/Time Smoking Status/Tobacco Use Comment F acelina September 24, 2022 11:00 AM VA-TOBACCO NEVER USED [facility] Nov 22, 2021 02:00 PM VA-TOBACCO NEVER USED [facility] Nov 07, 2020 02:00 PM VA-TOBACCO FORMER USER [facility] Nov 07, 2020 02:00 PM VA-TOBACCO QUIT 15 YRS OR MORE [facility] Radiology Reports: +/- 30 days of the encounter Radiology Reports For cases when an order for radiology services may have been completed prior to the date of the Encounter, the report list includes the Radiology Reports that were completed up to 30 days before dateof the Encounter. For cases when an order for radiology services may have been completed after the date of the Encounter, the report list also includes the Radiology Reports that were completed up to30 days after date of the Encounter. The data comes from all [place] treatment facilities. Date/Time Radiology Report Provider Source October 17, 2023 09:29 AM CHEST 2 VIEWS PA AND LAT: NIKHIL HUERTA [id number] -[id number] M Ex Date: OCTOBER 17, 2023@09:29 Req Phys: LORRAINE INFANTE Loc: [facility] [place] [facility] [place] Service: [place] [address] (Case [id number] COMPLETE) CHEST 2 VIEWS PA AND LAT (RAD Detailed) CPT:36480 Reason for Study: Burn pit registry, cough, sob, wheezing Clinical History: [place] IS NOT under investigation for COVID-19 or is COVID-19 negative History of deployment related airborne exposures Responsible provider name and phone number to notify for critical findings if other than user placing the order and pager listed below: User placing orders pager: LAST CREATININE 1.1 (09/24/22) Report Status: Verified Date Reported: OCTOBER 22, 2023 Date Verified: OCTOBER 22, 2023 [employer] Team Member E-Sig: Report: EXAM: CHEST 2 VIEWS PA AND LAT CLINICAL HISTORY: Burn pit registry, cough, sob, wheezing COMPARISON: No priors available FINDINGS: There is no focal consolidation or pulmonary edema. No pleural effusion or pneumothorax. The cardiomediastinal silhouette is normal in size and countor. No acute osseous abnormality. Impression: No acute cardiopulmonary process. READING PHYSICIAN: Nilo Arevalo MD -[id number] 10/22/2023 9:12 CDT [facility] National Teleradiology Program [phone] (For Medical Practitioner Use Only) Attention Patients / Veterans: If you have questions or concerns about these test results, please contact your ordering provider or primary care team. Primary Interpreting Staff: RADIOLOGY,OUTSIDE SERVICE, Staff Physician / RADIOLOGY,OUTSIDE SERVICE [facility] Encounter Notes: All associated encounter notes This section contains the clinical notes associated to the Encounter. Date/Time Encounter Note(s) Provider Source October 13, 2023 11:50 AM LETTERS: LOCAL TITLE: FOLLOW UP RESULTS LETTER STANDARD TITLE: LETTERS DATE OF NOTE: OCTOBER 13, 2023@11:50 ENTRY DATE: OCTOBER 13, 2023@11:50:29 AUTHOR: LIN DU EXP COSIGNER: URGENCY: STATUS: COMPLETED [facility] [address] [place] [address] September NI[address]IL [address] [place] [address] Dear : You should be receiving another letter with the results of the tests you had done at the [facility]. I have reviewed the results and labs are OK/stable. Continue current medications and cares. Follow-up as directed. If you have further questions or problems, please contact the call center at [phone] to speak with a nurse or leave me a message Sincerely, LIN DU PA-C PHYSICIAN RAIL CREW MEMBER [facility] LE[facility] October 10, 2023 10:51 AM ADMINISTRATIVE NOT E: LOCAL TITLE: AFTER VISIT SUMMARY NOTE STANDARD TITLE: ADMINISTRATIVE NOTE DICT DATE: OCTOBER 10, 2023@10:51:05 ENTRY DATE: OCTOBER 10, 2023@10:51:05 DICTATED BY: LIN DU EXP COSIGNER: URGENCY: STATUS: COMPLETED The patient was provided with a copy of an after-visit summary at the conclusion of the visit. A copy of the after-visit summary provided to the patient is available in [employer]. SCANNED DOCUMENT SIGNATURE NOT REQUIRED Electronically Filed: 10/10/2023 by: LIN DU PA-C PHYSICIAN RAIL CREW MEMBER [facility] October 10, 2023 10:07 AM PRIMARY CARE NURSI NG NOTE: LOCAL TITLE: [facility] NURSING PROGRESS NOTE STANDARD TITLE: PRIMARY CARE NURSING NOTE DATE OF NOTE: OCTOBER 10, 2023@10:07 ENTRY DATE: OCTOBER 10, 2023@10:07:13 AUTHOR: SHANNA MURILLO EXP COSIGNER: URGENCY: STATUS: COMPLETED TYPE OF VISIT: Appointment Check In Type of appointment: In-person appointment REASON FOR VISIT: Annual Why is addressing this health concern important to the and their overall health? To stay on top of it, ALLERGIES: AMOXICILLIN (Nov 07, 2020) VITAL SIGNS: Blood Pressure: 124/85 (10/10/2023 10:06) Pulse: 77 (10/10/2023 10:06) Respiration: 14 (10/10/2023 10:06) Temperature: 97.6 F [36.4 C] (10/10/2023 10:06) Weight: 280 lb [127.01 kg] (10/10/2023 10:06) Height: 69.291 in [176.0 cm] (09/24/2022 11:03) BMI: 41.1 O2 Sat: 96% (10/10/2023 10:06) Pain: 7 (10/10/2023 10:06) PAIN SCREEN: Patient is not having significant pain that they wish to discuss with their provider today. MEDICATION Active Outpatient Medications (including Supplies): SILDENAFIL CITRATE 100MG TAB TAKE ONE TABLET BY MOUTH ACTIVE NEEDED FOR ERECTILE DYSFUNCTION Nursing Annual Screening: Fall History Screen During the past 12 months, have you had any falls? Patient does not report any falls in the past 12 months. MEDICATIONS: Patient does not have an active prescription for one of the following medications: Antihypertensives, Antidepressants, Antipsychotics, Diuretics, or Opioid Analgesics (Contolled Substance medications used for pain). Script Talk Screen Are you able to read your prescription bottles with your glasses, magnifiers or other aids? Yes or patient not taking any prescriptions. Skin Screen Patient reports any current pressure ulcers, a history of pressure ulcers, or a wound from a center medical specialist or Patient is bed-confined or a wheelchair-user or Patient requires assistance to transfer/change position No, Skin Screen is Negative Home Abuse/Violence Screen Is your home free of abuse and violence? Yes MOVE! Program Screen Body Mass Index (BMI)= 41.1 [place]: Collection DT Specimen Test Name Result Units Ref Range 09/24/2022 12:10 BLOOD !! HEMOGLOBIN A1C 5.2 % 4.0 - 6.0 !! Indicates COMMENTS AVAILABLE...Refer to Interim Lab Report. [place] Hgb A1C: No data available [place] Hgb A1C: No data available Point of Care Hgb A1C: POC HGB A1C____ MOVE! Weight Management brochure given to [place] and discussed. The counseling includes discussion of the health effects of being overweight/obese, description of the [facility]! Weight Management treatment program and contact number for [facility] Weight Management Program. No Outpatient Nutrition Screen Body Mass Index (BMI)= 41.1 [place]: Collection DT Specimen Test Name Result Units Ref Range 09/24/2022 12:10 BLOOD !! HEMOGLOBIN A1C 5.2 % 4.0 - 6.0 !! Indicates COMMENTS AVAILABLE...Refer to Interim Lab Report. [place] Hgb A1C: No data available [place] Hgb A1C: No data available Point of Care Hgb A1C: POC HGB A1C____ Is patient's BMI less than 18.5? No Does patient have swallowing, coughing, or chewing problems affecting oral intake? No Has patient experienced unplanned weight loss or gain greater than 10 pounds over the last 2 months? No Is patient's Hgb A1C (Glycosylated Hemoglobin) greater than 9.5? Information not available Is patient receiving Total Parenteral Nutrition (TPN) or Tube Feedings? No Patient Health Education Screen BARRIERS/SPECIAL NEEDS: No barriers identified PREFERRED STYLE OF LEARNING: No preference stated Client Assistive Service (ROSEY) Screen Does the patient require assistance with outpatient visit? No Alcohol Use Screen (AUDIT-C): Alcohol Screen: SCREEN FOR ALCOHOL (AUDIT-C) An alcohol screening test (AUDIT-C) was negative (score=0). 1. How often did you have a drink containing alcohol in the past year? Consider a drink to be a 12 ounce can or bottle of regular beer, 8 ounces of malt liquor, a 5 ounce glass of table wine, or a 1.5 ounce shot of liquor (like scotch, gin, or vodka). Never 2. How many drinks containing alcohol did you have on a typical day when you were drinking in the past year? Response not required due to responses to other questions. 3. How often did you have six or more drinks on one occasion in the past year? Response not required due to responses to other questions. Tobacco Use Screening: The patient has never used tobacco. Homelessness/Food Insecurity Screen: In the past 2 months, have you been living in stable housing that you own, rent, or stay in as part of a household? Yes - Living in stable housing. Are you worried or concerned that in the next 2 months you may NOT have stable housing that you own, rent, or stay in as part of a household? No - Not worried about housing near future The [place] reports the following: Within the past 12 months, you worried whether your food would run out before you got money to buy more. Never true Within the past 12 months, the food you bought just didn't last and you didn't have money to get more. Never true Food Assistance Programs [facility] Food Assistance Programs [facility] Suicide Screen: C-SSRS Screening [place] Suicide Severity Rating Scale (C-SSRS) screener 1. Over the past month, have you wished you were or wished you could go to sleep and not wake up? No 2. Over the past month, have you had any actual thoughts of killing yourself? No 3. Over the past month, have you been thinking about how you might do this? Response not required due to responses to other questions. 4. Over the past month, have you had these thoughts and had some intention of acting on them? Response not required due to responses to other questions. 5. Over the past month, have you started to work out or worked out the details of how to kill yourself? Response not required due to responses to other questions. 6. If yes, at any time in the past month did you intend to carry out this plan? Response not required due to responses to other questions. 7. In your lifetime, have you ever done anything, started to do anything, or prepared to do anything to end your life (for example, collected pills, obtained a gun, gave away valuables, went to the roof but didn't jump)? No 8. If YES, was this within the past 3 months? Response not required due to responses to other questions. Depression Screening: Perform PHQ-2 A PHQ-2 screen was performed. The score was 0 which is a negative screen for depression. Over the past two weeks, how often have you been bothered by the following problems? 1. Little interest or pleasure in doing things Not at all 2. Feeling down, depressed, or hopeless Not at all /es/ SHANNA MURILLORN REGISTERED NURSE Signed: 10/10/2023 10:10 SHANNA MURILLO [facility] October 10, 2023 10:06 AM H & P NOTE: LOCAL TITLE: [facility] ANNUAL VISIT STANDARD TITLE: H & P NOTE DATE OF NOTE: OCTOBER 10, 2023@10:06 ENTRY DATE: OCTOBER 10, 2023@08:02:11 AUTHOR: LIN DU EXP COSIGNER: URGENCY: STATUS: COMPLETED Type of Visit: ANNUAL VISIT Reason for Visit: ANNUAL VISIT Non [place] Providers: NONE HPI: 33 year old MALE with PMH of below medical conditions seen today for ANNUAL VISIT and to review chronic medical conditions. Reports overall feeling well today. Denies recent illnesses or hospitalizations. Takes no daily medications. Is undergoing evaluation for burn pit exposure. He has pulmonary function testing and chest x-ray scheduled for next week. He did have sleep study showing mild sleep apnea. Treatment was recommended oral appliance or eXcite device for mild sleep apnea. He has not obtained these. 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 He is concerned about federal guidelines regarding treatment of sleep apnea and truck drivers. Interested in follow-up with sleep clinic. We will place new consult per request. Concerns: Denies other specific complaints or new concerns today. Past Medical History: Active problems - Computerized Problem List is the source for the followin. Chronic post-traumatic stress disorder following combat 2. Eczema ([facility] [id number]) 3. Asthma ([facility] [id number]) 4. Abdominal Pain ([facility] [id number]) 5. Low Back Pain ([facility] [id number]) 6. Obesity 7. Back pain 8. Sleep apnea 9. Steatosis of liver 10. Exposure to potentially hazardous substance ([facility] [id number]) - [facility] Documentation Initiative 11. Contact with and (Suspected) Exposure to Air Pollution 12. Contact with and (Suspected) Exposure to other Hazardous, Chiefly Nonmedicin 13. Contact with and (suspected) exposure to other hazardous substances 14. Contact with and (Suspected) Exposure to other Hazards in the Physical Envir Past Surgical History: 1. 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 [employer] : [employer] 2009-04; deployed to [place] Tobacco: Denies ETOH:couple times per week - 3-6 drinks (whiskey) Recreational drugs: Denies Review of System: NEGATIVE EXCEPT NOTED ABOVE Physical Exam: Temp: 97.6 F [36.4 C] (10/10/2023 10:06) Pulse:77 (10/10/2023 10:06) BP: 124/85 (10/10/2023 10:06) Resp: 14 (10/10/2023 10:06) Weight: 280 lb [127.01 kg] (10/10/2023 10:06) Pain: 7 (10/10/2023 10:06) O2 Sat: 96% (10/10/2023 10:06) BMI: 41.1 General: Alert, NAD Skin: No obvious rashes HEENT: EOMI, TM clear CV: S1 and S2 normal, RRR, no m/r/g Lungs: CTAB, no crackles, no wheezing. Normal resp rate and effort Abd: soft, NT/ND, +BS : deferred Extrem: no edema Neuro: no gross deficits Mental: Normal mood and affect, cooperative Labs: PENDING Imaging: NONE TODAY Assessment/Plan: 1. ANNUAL VISIT 2. OBESITY - information to MOVE! Program provided 3. SLEEP APNEA - f/u with sleep clinic as directed 4. LOW BACK PAIN - stable; continue current cares 5. FATTY LIVER - Liver function tests pending Labs pending Takes no daily medications Medication reconciliation completed with Vet Encouraged healthy lifestyle choices Health maintenance recommendations reviewed Immunizations up to date After visit summary offered Questions were answered Patient comfortable with above plan Follow up with Sleep Clinic as directed RTC 1 year for annual visit or sooner as needed Health Care Maintenance - Colon Cancer Screening: N/A - AAA Screening (Age > 65-75) - 1 time for men: N/A - Lung Cancer Screening (Age 55-79) - Low Dose CT Chest for Lung Cancer Screening for those with smoking history: N/A - Hepatitis C Screenin11/07/2020 NEGATIVE - Vaccinations: IM - Immunizations ADMINISTERED Immunization Series Date Facility Reaction Info TDAP 03/28/2016 [facility] <C> CONTRAINDICATED No data available REFUSED ======= Immunization Date Facility Info INFLUENZA, UNSPECIFIED FORMULATI* 09/24/2022 [facility] <I> SARS-COV-2 (COVID-19) VACCINE, U* 09/24/2022 [facility] <I> <C> See the Detailed Immunizations Health Summary Component[DIM] for Comments <I> See the Detailed Immunizations Health Summary Component[DIM] for Additional Information * Value is truncated; see the Detailed Immunizations Health Summary Component [DIM] for complete text RTC in 12 MONTHS FOR ANNUAL VISIT. Total time spent with patient care including chart review/diagnostic and testing review, patient interview/examination, counseling, documentation and care coordination was 40 minutes Clinical Reminders: Medication Reconciliation: Education Evaluations *Was medication education provided for NEW medications or CHANGES to medications? (including medication name, dose, route, reason for use, and potential side effects). No new medications or medication changes during this encounter. TERATOGENIC MED & CONTRACEPTION REVIEW (Optional)... ===== MEDICATION RECONCILIATION ===== List Given: An updated medication list was provided to the patient/caregiver. Review Done: The medication list shown below was verified for accuracy and it includes all pending medications/active medications/all medications or discontinued within the last 90 days/all remote medications and non-VA medications. If a given category (i.e. remote meds) is not shown, that means that a patient doesn't have a medication(s) in that category. Allergies listed below were also reviewed/updated for accuracy. Allergies/ADR from DoD may not display in CPRS. Use JLV MRT5 - Allergies/ADRs FACILITY ALLERGY/ADR -------- CLNCL/HLTH GREGORY REPT EFF [id number] [facility] AMOXICILLIN Active and Recently Outpatient Medications (including Supplies): Issue Date Status Last Fill Active Outpatient Medications Refills Expiration 1) SILDENAFIL CITRATE 100MG TAB Qty: 18 ACTIVE Issu:10-23-22 for 90 days Sig: TAKE ONE TABLET BY Refills: 3 Last:10-24-22 MOUTH NEEDED FOR ERECTILE Expr:10-24-23 DYSFUNCTION Issue Date Status Last Fill Inactive Outpatient Medications Refills Expiration 1) MELOXICAM 15MG TAB Qty: 90 for 90 days DISCONTINUED Issu:09-24-22 Sig: TAKE ONE TABLET BY MOUTH EVERY Refills: 3 Last:09-25-22 DAY NEEDED FOR PAIN Expr:09-25-23 2 Total Medications /es/ LIN DU PA-C PHYSICIAN RAIL CREW MEMBER ALIA ESPINO [facility] Signed: 10/10/2023 10:50 LIN DU OC
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
--- OUTSIDE RECORDS SUMMARY | 2024-06-06 17:23 | XMS_ITS | Encounter Summary ---
Author Name [facility] [place] Organization [facility] [place] Address [address] [place] [address] Care Team Providers Care Scrap Sorter Name Role Phone ANA LAURA LIN Primary [...] [place] PREFERRED PROVIDER ORGANIZAT ION (PPO) [place], [place] ADMIN Jul 24, 2021 [id number] [phone] KODY DOSS PATIENT [place] PREFERRED PROVIDER ORGANIZAT ION (PPO) [place]ARIB [place], [place] ADMIN Jul 24, 2021 [id number] [phone] KODY DOSS PATIENT PRIME THERAPEUTI CS PRESCRIPT ION BCBSI L Jul 24, 2021 BCBSIL [id number] [phone] KODY DOSS PATIENT Selected Encounter This section includes the information on record at [place] for the Encounter. Date/Time Encounter Type Encounter Description Reason Pro vider Source IHE Encounter Template Text not used by [place]
--- OUTSIDE RECORDS SUMMARY | 2024-06-06 17:23 | XMS_ITS | Encounter Summary ---
Author Name [facility] [place] Organization [facility] [place] Address [address] [place] [address] Care Team Providers Care Seed Laboratory Technician Name Role Phone LIN DU Primary Care [...] PREFERRED PROVIDER ORGANIZAT ION (PPO) LALA CHATMAN [place] ADMIN Jul 24, 2021 [id number] [phone] KODY DOSS PATIENT [place] PREFERRED PROVIDER ORGANIZAT ION (PPO) YEEIB [place], [place] ADMIN Jul 24, 2021 [id number] [phone] KODY DOSS PATIENT PRIME THERAPEUTI CS PRESCRIPT ION BCBSI L Jul 24, 2021 BCBSIL [id number] [phone] KODY DOSS PATIENT Selected Encounter This section includes the information on record at CT for the Encounter. Date/Time Encounter Type Encounter Description Reason Pro vider Source Oct 28, 2023 09:34 AM Outpatient Encounter GENERAL INTERNAL MEDICINE IHE Encounter Template Text not used by CT Plan of Treatment: Future Appointments (+ 6 months) and Future Tests (+/- 45 days) The Plan of Treatment section includes future care activities for the patient [facility] This section includes future appointments and future orders which are active, pending or scheduled. Future Appointments This section includes appointments that were scheduled to occur 6 months from the date of the Encounter, up to a maximum of 20 appointments. The data comes from all CT treatment facilities. Appointment Date/Time Appointment Type Appointme nt Facility Name Feb 24, 2024 01:00 PM AMBULATORY - MEDICINE [facility] Lab Results: +/- 30 days of the encounter This section includes the Chemistry and Hematology Lab Results on record with CT for the patient. Radiology Reports and Pathology [...] October 10, 2023 10:28 AM Reporting Lab: [facility] [id number] Performing Lab: [facility] [id number] CREATININE 1.2 mg/dL 0.7-1.2 UREA NITROGEN 21 [...] October 10, 2023 10:44 AM [facility] CBC Specimen Type: BLOOD No comment entered. Ordering Provider: LIN DU Report Released Date/Time: October 10, 2023 10:28 AM Reporting Lab: [facility] [phone] Performing Lab: [facility] [id number] WBC 6.89 10*3/uL 4.0-11.0 RBC 4.91 10*6/uL 4.6-6.2 HGB 14.9 g/dL 13.5-17.9 HCT 42.0 41-54 MCV 85.5 fL 80-100 MCH 30.3 pg 27-33 MCHC 35.5 g/dL 32.0-37.5 PLT 336 10*3/uL 150-400 MPV 10.0 fL 7.4-10.4 RDW 11.9 11.5-14.5 October 10, 2023 10:44 AM [facility] HEMOGLOBIN A1C Specimen Type: BLOOD Comment: Values [...] October 10, 2023 10:28 AM Reporting Lab: [facility] [id number] Performing Lab: [facility] [id number] HEMOGLOBIN A1C 5.4 4.0-6.0 October 10, 2023 10:44 AM [facility] LIPID PANEL,NON-FASTING Specimen Type: PLASMA Comment: Elevated triglyceride result from a non-fasting specimen should be interpreted with caution. A fasting panel is recommended for accurate triglycerides when trigs are >200 from a non-fasting specimen. Ordering Provider: LIN DU Report Released Date/Time: October 10, 2023 10:28 AM Reporting Lab: [facility] [id number] Performing Lab: [facility] [id number] CHOLESTEROL 212 mg/dL H <199 .HDL 36 mg/dL L >40 LDL CALCULATION 126 mg/dL H <99 VLDL CALCULATION 50 mg/dL H <29 NON HDL CHOLESTEROL 176 mg/dL H <129 TRIG(NON FASTING) 249 mg/dL H <149 October 10, 2023 10:44 AM [facility] TSH W/REFLEX TO FREE T4 Specimen Type: PLASMA Comment: Elevated triglyceride result from a non-fasting specimen should be interpreted with caution. A fasting panel is recommended for accurate triglycerides when trigs are >200 from a non-fasting specimen. Ordering Provider: LIN DU Report Released Date/Time: October 10, 2023 10:28 AM Reporting Lab: [facility] [phone] Performing Lab: [facility] [id number] TSH 1.71 u[IU]/mL 0.35-4.94 Radiology Reports: +/- 30 days of the [...] the Encounter. The data comes from all CT treatment facilities. Date/Time Radiology Report Provider Source October 17, 2023 09:29 AM CHEST 2 VIEWS PA AND LAT: NIKHIL HUERTA [id number] [phone] M Exm Date: OCTOBER 17, 2023@09:29 Req Phys: LORRAINE MISTRY Loc: 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 No pleural effusion or pneumothorax. The cardiomediastinal silhouette is normal in size and countor. No acute osseous abnormality. Impression: No acute cardiopulmonary process. READING PHYSICIAN: Nilo Arevalo MD -[id number] 10/22/2023 9:12 CDT [facility] National Teleradiology Program [phone] (For Medical Practitioner Use Only) Attention Patients / Veterans: If you have questions or concerns about these test results, please contact your ordering provider or primary care team. Primary Interpreting Staff: RADIOLOGY,OUTSIDE SERVICE, Staff Physician / RADIOLOGY,OUTSIDE SERVICE [facility] Encounter Notes: All associated encounter notes This section contains the clinical notes associated to the Encounter. Date/Time Encounter Note(s) Provider Source Oct 28, 2023 09:34 AM LETTERS: LOCAL TITLE: FOLLOW UP RESULTS LETTER STANDARD TITLE: LETTERS DATE OF NOTE: OCT 28, 2023@09:34 ENTRY DATE: OCT 28, 2023@09:34:14 AUTHOR: AUTUMN NEVAREZ COSIGNER: URGENCY: STATUS: COMPLETED [facility] [address] [place] [address] Oct NIKHIL HUERTA [address] [facility] [address] Dear [place]: I am writing to inform you of the results of the tests you had done at the [facility]. The tests below were performed and are satisfactory unless otherwise noted. I am contacting you on behalf of TORO Mistry who did your Registry with test results I am attaching the results of your recent pulmonary function tests that were done as part of the Registry examination Reviewing your Registry you had noted a history of exercise induced asthma when you had used an inhaler 12 years earlier your current pulmonary function studies are normal You can follow up with your primary care provider and discuss LOCAL TITLE: CP PULMONARY FUNCTION TEST STANDARD TITLE: PULMONARY PROCEDURE NOTE DATE OF NOTE: OCTOBER 17, 2023@17:05:53 ENTRY DATE: OCTOBER 17, 2023@17:05:53 AUTHOR: CLINICAL,DEVICE PRO EXP COSIGNER: URGENCY: STATUS: COMPLETED Interpretation: Spirometry is Normal. Diffusing Capacity is Normal. Comments: If you have any further questions or problems, please contact our nursing staff or me at the following number: [phone] . Sincerely, AUTUMN NEVAREZ NP NURSE PRACTITIONER AUTUMN NEVAREZ [facility]
--- OUTSIDE RECORDS SUMMARY | 2024-06-06 17:23 | XMS_ITS | Clinical Summary ---
Author Organization [employer] [facility] [employer] [facility] Address [place], [place] [address] Care Team Providers Care Manager Ccu Name Role Phone [facility] Primary Care Provider Unavailabl e Allergies Active Allergy Reactions Criticality Noted Date Comments Amoxicillin Rash 07/24/2005 Medications No known medications Active Problems Problem Noted Date Diagnosed Date Eczema of both hands 04/08/2016 Attention deficit disorder without mention of hy peractivity 08/04/2002 ASTHMA, MILD PERSISTENT 07/02/2001 Immunizations Name Administration Dates Next Due DTaP 01/08/1995 Hepatitis B (Peds) 08/04/2002,02/04/2002, 002 Influenza, IIV3 (Age >=3 years) 02/19/2012 MMR 01/04/2002 Oral Polio Vaccine 01/08/1995 Tdap 02/19/2012 Family History Medical History Relation Name Comments Cancer Father VIPoma Stroke Maternal Grandmother Good Health Mother Diabetes Paternal Grandfather Relation Name Status Comments Father Alive Maternal Grandfather Maternal Grandmother Alive Mother Alive Paternal Grandfather Paternal Grandmother Alive Sister Alive Social History Tobacco Use Types Packs/Day Years Used Date Smoking Tobacco: Never Smokeless Tobacco: Never Tobacco Cessation:Counseling Given: Yes Comments:non smoking home Alcohol Use Standard Drinks/Week Comments No 0 (1 standard drink = 0.6 oz pur e alcohol) Social Connections Answer Date Recorded Frequency of Communication with Friends and Fami ly Not on file 05/26/2021 Financial Resource Strain Answer Date R ecorded Difficulty of Paying Living Expenses Not on file 05/26/2021 Difficulty of Paying Living Expenses Not on file 05/26/2021 Sex and Gender Information Value Date Recorded Sex Assigned at Not on file Legal Sex Male 5:20 AM MANAGER OF SELECTION AND ASSESSMENT Gender Identity Not on file Sexual Orientation Not on file 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 Not on file Not on file Obstetrics History Last Filed Vital Signs Vital Sign Reading Time Taken Comments Blood Pressure 128/80 07/08/2019 9:36 AM MANAGER OF SELECTION AND ASSESSMENT Pulse 72 07/08/2019 9:36 AM MANAGER OF SELECTION AND ASSESSMENT Temperature 36.5 C (97.7 F) 08/28/2018 8:28 AM CDT Respiratory Rate 16 07/08/2019 9:36 AM MANAGER OF SELECTION AND ASSESSMENT Oxygen Saturation 98% 08/28/2018 8:28 AM CDT Inhaled Oxygen Concentration - - Weight 113.4 kg (250 lb) 07/08/2019 9:36 AM MANAGER OF SELECTION AND ASSESSMENT Height 177.8 cm (5' 10) 07/08/2019 9:36 AM MANAGER OF SELECTION AND ASSESSMENT Body Mass Index 35.87 07/08/2019 9:36 AM MANAGER OF SELECTION AND ASSESSMENT Plan of Treatment Health Maintenance Due Date Last Done Comments HIV for age 15-65 2004 Hepatitis C screening for ag e 18-79 08/20/2007 Depression screening for age 12+ 06/29/2016 06/29/2015, 06/06/2015 BMI (ht and wt on same day) for age 18+ 07/08/2020 07/08/2019, 08/28/2018, 06/06/2015 Tetanus booster 02/18/2022 02/19/2012 COVID-19 vaccine series (2023- season) 2024 Influenza for age 9-49 01/25/2024 02/19/2012 Tdap Completed 02/19/2012 Pneumococcal series for age 6-49 Aged Out No longer eligible b ased on patient's age to complete this topic Insurance BLUE CROSS OF [place]-ITS Care Teams Manager Ccu Relationship Specialty Start Date End Date Yoel Dickerson PCP - General 09/01/17
[2024-06-06 17:43] VITALS: BP 131/87; PULSE 95; RESP 20; TEMP 36.4; O2SAT 96; BMI 41.3
--- NOTE | 2024-06-06 17:46 | CRLHL7_ITS ---
For Patients: As a result of the Century Cures Act, medical imaging exams and procedure reports are released immediately into your electronic medical record. You may view this report before your referring provider. If you have questions, please contact your health care provider. INDICATION: Cough TECHNIQUE: Chest 2 views COMPARISON: None FINDINGS: Cardiovascular and mediastinum: Heart size and vasculature are normal in caliber and appearance. Lungs and pleural spaces: Lungs are clear. No sign of infiltrate or mass. No sign of pleural effusion. No pneumothorax. Bones and soft tissues: No significant findings. IMPRESSION: No acute findings. Dictated by Gerald Blount MD @ 06/06/2024 6:50:12 PM (Electronically Signed)
--- NOTE | 2024-06-06 19:37 | ED_ITS ---
HPI - General Adult General Chief complaint: Cough Stated complaint: 5 week cough, stomach pain when coughing Time Seen by Provider: 06/06/24 19:37 Source: patient Mode of arrival: ambulatory Limitations: no limitations History of Present Illness HPI narrative: Justin is a very pleasant 33-year-old with history of exercise-induced asthma who comes to the emergency room with ongoing cough for greater than a month. Patient notes the onset of cold-like symptoms in early April. He notes no fever at that time. He states that he had the cough for a number of weeks and then improved. One week ago he suddenly had increasing symptoms and does have green mucus. He notes that the cough has worsened significantly and he is coughing constantly. He did not cough this month which with the initial illness in the beginning of April. He has not had fever or chills. He denies tobacco use. He has not had any calf pain or history of DVT. He notes when he coughs his abdomen is very painful. Denies ear pain or sore throat. Related Data Previous Rx's ?Medication ?Instructions ?Recorded albuterol sulfate 90 mcg/actuation 2 puff inhalation QID PRN 06/06/24 aerosol inhaler shortness of breath or wheezing #6.7 grams codeine 10 mg-guaifenesin 100 mg/5 5 ml PO Q6H PRN #120 mL 06/06/24 mL oral liquid Allergies Allergy/AdvReac Type Severity Reaction Status Date / Time Penicillins Allergy Verified 05/01/23 16:21 Review of Systems Status of ROS: Reports: 6 or more systems reviewed and unremarkable except as noted in History and below PFSH PFSH Social History Non-prescribed substance use: denies use Exam Narrative: Exam Narrative: Justin is alert and oriented. External ears eyes nose clear. Oral cavity with moist mucous membranes. Neck is supple without lymphadenopathy. TMs without erythema or fluid. Heart with regular rate and rhythm. Lungs are with crackles in the left lower lung base. No squeaks or wheezing. Abdomen is soft nontender. Lower extremities without edema. Moving all extremities. Nontoxic in appearance. Const: Vital Signs, click to edit/add: Vital Signs - 24 hr 06/06/24 17:43 Temperature 97.5 F L Pulse Rate [Pulse Oximeter] 95 Respiratory Rate 20 Blood Pressure [Ri ght Upper Arm] 131/87 Pulse Oximetry 96 Documenting provider has reviewed patient's vital signs: yes Course Course ED Course: Patient noted to have initial cough at the beginning of April with improvement and then sudden worsening symptoms. We did test for COVID influenza and this is negative RSV is negative. Given the description of the coughing I have also tested him for pertussis. Vital Signs Vital signs: Initial Vital Signs Temperature 97.5 F L 06/06/24 17:43 Temperature Source Temporal Artery Scan 06/06/24 17:43 Pulse Rate 95 06/06/24 17:43 Pulse Rhythm Regular 06/06/24 17:43 Respiratory Rate 20 06/06/24 17:43 Blood Pressure 131/87 06/06/24 17:43 Blood Pressure Mean 101 06/06/24 17:43 Blood Pressure Position Sitting 06/06/24 17:43 Pulse Oximetry 96 06/06/24 17:43 Vital Signs Temperature 97.5 F L 06/06/24 17:43 Pulse Rate 95 06/06/24 17:43 Respiratory Rate 20 06/06/24 17:43 Blood Pressure 131/87 06/06/24 17:43 Pulse Oximetry 96 06/06/24 17:43 Temperature 97.5 F L 06/06/24 17:43 Pulse Rate 95 06/06/24 17:43 Respiratory Rate 20 06/06/24 17:43 Blood Pressure 131/87 06/06/24 17:43 Pulse Oximetry 96 06/06/24 17:43 Medical Decision Making MDM Narrative Medical decision making narrative: 1. Bronchitis-will treat with doxycycline 100 mg p.o. b.i.d. x7 days. Awaiting pertusses swab given the cough he is experiencing and negative triple swab. No evidence of pneumonia on chest x-ray. Prednisone 20 mg p.o. b.i.d. x5 days also ordered for this gentleman. 2. Persistent cough-patient notes significant difficulty with sleeping. Will give him Robitussin with codeine 03/04 1 tsp p.o. q.6 hours p.r.n.. I would like him to limit this to nighttime sleeping hours. I do not want to completely suppress his cough. He understands. Will also give him albuterol inhaler 2 puffs q.4 hours p.r.n. 3. Disposition-home at this time. Seek medical attention for worsening symptoms. Doxycycline and prednisone put in our [facility]St[facility] meds machine. Cough medicine and inhaler sent to patient's pharmacy. Medical Records Medical records reviewed: Yes I reviewed the patient's medical records Lab Data Lab results reviewed: Yes I reviewed the patient's lab results Labs: Lab Results 06/06/24 Range/Units 19:55 SARS-CoV-2 (PCR) Negative SARS-CoV-2 (Negative) Influenza Type A (PCR) Negative PCR FLU A (Negative) Influenza Type B (PCR) Negative PCR FLU B (Negative) RSV (PCR) Negative PCR RSV (Negative) Imaging Data Chest x-ray: Attestation: I have reviewed the pertinent imaging results. Radiologist's impression: Cardiovascular and mediastinum: Heart size and vasculature are normal in caliber and appearance. Lungs and pleural spaces: Lungs are clear. No sign of infiltrate or mass. No sign of pleural effusion. No pneumothorax. Bones and soft tissues: No significant findings. IMPRESSION: No acute findings. Discharge Plan Discharge Clinical Impression: Cough Patient Disposition: Home, Self-Care Condition: Unchanged Instructions: Upper Respiratory Infection (DC) Additional Instructions: Start antibiotic tonight and steroid tonight. Tomorrow belt picker the cough medicine Robitussin with codeine which should only be used prior to bedtime. We do not want to suppress the cough 24 hours in a day. Use inhaler every 4 hours as needed. Return or seek medical attention for worsening symptoms. Prescriptions: New codeine-guaifenesin 10-100 mg/5 mL liquid 5 ml PO Q6H PRNQty: 120 0RF albuterol sulfate 90 mcg/actuation HFA aerosol inhaler 2 puff inhalation QID PRN (Reason: shortness of breath or wheezing) Qty: 6.7 0RF Follow Up/Referrals: Gerald Cortés MD [Staff Physician] - Stand Alone Forms: [employer] Info Instructions
--- OUTSIDE RECORDS SUMMARY | 2024-06-06 20:17 | XMS_ITS | Clinical Summary ---
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 Not on file Not on file Obstetrics History Last Filed Vital Signs Vital Sign Reading Time Taken Comments Blood Pressure 128/80 07/08/2019 9:36 AM MANAGER MANAGING Pulse 72 07/08/2019 9:36 AM MANAGER MANAGING Temperature 36.5 C (97.7 F) 08/28/2018 8:28 AM CDT Respiratory Rate 16 07/08/2019 9:36 AM MANAGER MANAGING Oxygen Saturation 98% 08/28/2018 8:28 AM CDT Inhaled Oxygen Concentration - - Weight 113.4 kg (250 lb) 07/08/2019 9:36 AM MANAGER MANAGING Height 177.8 cm (5' 10) 07/08/2019 9:36 AM MANAGER MANAGING Body Mass Index 35.87 07/08/2019 9:36 AM MANAGER MANAGING Plan of Treatment Health Maintenance Due Date [...] complete this topic Insurance BLUE CROSS OF [place] Care Teams Mold Worker Relationship Specialty Start Date End Date Yoel Dickerson PCP - General 09/01/17
--- OUTSIDE RECORDS SUMMARY | 2024-06-06 20:17 | XMS_ITS | Continuity of Care Document ---
Author Name [facility] Organization [facility] Care Team Providers Care Event Marketing Assistant Name Role Phone [facility] Unavailable Unavailable Problems Combined list of problems from Department of Defense and Veterans Affairs facilities. It does not include entries that were removed or entered in error. Problem Status Onset Date Problem Type Date of Resolution Comments Source Exposure to potentially hazardous substance (SCT [id number]) Active 08/01/19 24 Condition Aug 01, 2023 Entered By: WILDER WEBB [facility]: [facility] FELA Documentation Initiative [facility] lumbago Active Condition DoD nonallopathic lesions thoracic [...] for: ears / hearing exam Active Condition DoD assessment of patient condition work-related Active Condition DoD visit for: screening exam pulmonary tuberculosis Active Condition [facility] Abdominal Pain (SCT 04791098) Active Condition [facility] Asthma (SCT 206350498) Active Condition [facility] Back pain Active Condition [facility] Chronic post-traumatic stress disorder following combat Active Condition [facility] Contact with and (Suspected) Exposure to Air Pollution Active Condition [facility] Contact with and (suspected) exposure to other hazardous substances Active Condition [facility] Contact with and (Suspected) Exposure to other Hazardous, Chiefly Nonmedicinal, Active Condition [facility] Contact with and (Suspected) Exposure to other Hazards in the Physical Environme Active Condition [facility] Eczema (SCT 59254161) Active Condition [facility] Low Back Pain (SCT 479224417) Active Condition [facility] Obesity Active Condition [facility] Sleep apnea Active Condition [facility] Steatosis of liver Active Condition [facility] Diagnosis: ICD-10-CM G47.30 Sleep apnea, unspecified Active Diagnosis [facility] Diagnosis: ICD-10-CM Z77.9 Oth contact w and (suspected) exposures hazardous to health Active Diagnosis [facility] Diagnosis: ICD-10-CM Z77.110 Contact with and (suspected) exposure to air pollution Active Diagnosis [facility] Medications Combined list of outpatient medications from Department of [employer] and Veterans Affairs facilities.Medications provided include 1) outpatient medications from the last 15 months, and 2) patient-reported medications. Medication Details Route Status Patient Instructions Prescription Expires Prescription Number Last Dispense Date Ordering Provider Order Date Order Qty Source CELECOXIB 200MG CAP TAKE ONE CAPSULE BY MOUTH EVERY DAY NEEDED FOR PAIN TAKE WITH FOOD ORAL ACTIVE 01/13/2025 [id number] Sarah DU 2023 90 [place] 750MG TAB TAKE ONE TABLET BY MOUTH THREE TIMES A DAY NEEDED FOR MUSCLE PAIN ORAL ACTIVE 01/13/2025 [id number] Sarah DU 2023 90 ALIA BURGOS Allergies, Adverse Reactions, Alerts Combined list of allergies from Department of Defense and Veterans Affairs facilities. It does not include entries that were removed or entered in error. Substance Category Reaction Severity Reaction type Status Date Reported Comments Source AMOXICILLIN Propensity to adverse reactions to drug (finding) Finding of vomiting active 1 [facility] AMOXICILLIN (AMOXICILLIN TRIHYDRATE) Drug allergy (disorder) Vomiting active 0 [place], [place] Immunizations Combined list of available immunizations from the Department of Defense and Veterans Affairs facilities. Immunization Series Date Given Administered By Site Reaction Lot Number CVX Code Drug Supervisor Microwave Status Comments Source TDAP 2015 115 complet ed [facility] anthrax vaccine 4 2010 [id number] [employer] [place] ([facility]) complet ed anthrax vaccine DoD Influenza, seasonal, injectable 3 2010 [id number] 141 [employer]AB [employer]. (CSL) complet ed Influenza , seasonal, injectabl e DoD anthrax vaccine 3 2010 [id number] [facility] [place] ([facility]) complet ed anthrax vaccine DoD vaccinia (smallpox) vaccine 1 2009 UNK [id number] Unknown (UNK) Not Given vaccinia (smallpox ) vaccine DoD anthrax vaccine 2 2009 [id number] [facility] complet ed anthrax vaccine DoD influenza virus vaccine, live, attenuated, for intranasal use 1 2009 [id number] [employer] (MED) complet ed influenza virus vaccine, live, attenuate d, for intranasa l use DoD anthrax vaccine 1 2009 [id number] [employer] [place] ([facility]) complet ed anthrax vaccine DoD typhoid Vi capsular polysaccharid e vaccine 1 2009 [id number] Sanofi Pasteur (PMC) complet ed typhoid Vi capsular polysacch aride vaccine DoD hepatitis A and hepatitis B vaccine 3 2009 [id number] 104 SmithKline (SKB) complet ed hepatitis A and hepatitis B vaccine DoD Novel influenza-H1N 1-09, injectable 1 2009 [id number] 127 Novartis Wander (f. [employer] Danny. (NOV) complet ed Novel influenza -E5U7-07, injectabl e DoD influenza virus vaccine, live, attenuated, for intranasal use 1 2008 [id number] 111 Med[employer]park[employer] Inc[employer] (MED) complet ed influenza virus vaccine, [...] diphtheria toxoid conjugate vaccine (MCV4P) 1 2008 [id number] Sanofi Pasteur (PMC) complet ed meningoco ccal polysacch aride (groups A, C, Y and W-135) diphtheri a toxoid conjugate vaccine (MCV4P) DoD tetanus toxoid, reduced diphtheria toxoid, and acellular pertu is vaccine, adsorbed 1 2008 [id number] 9AA 115 [employer]line (SKB) complet ed tetanus toxoid, reduced diphtheri a toxoid, and acellular pertussis vaccine, adsorbed DoD Results Combined list of recent chemistry, hematology and other laboratory results from Department of Defense and Veterans Affairs, ranging from 15 months to all on record, depending upon the facility. Order Name Results Value Reference Range Date Interpretation Specimen Comments Source CBC LEUKOCYTES [#/VOLUME] IN BLOOD BY AUTOMATED COUNT 6.89 10*3/u L 4.0 - 11.0 10/09 Specimen Type: BLOOD No comment entered. Ordering Provider: MELISSA DU Report Released Date/Time: October 10, 2023 10:28 AM Reporting Lab: [facility] [address] Performing Lab: [facility] [address] ALIA BURGOS CBC ERYTHROCYTE S [#/VOLUME] IN BLOOD BY AUTOMATED COUNT 4.91 10*6/u L 4.6 - 6.2 10/09 Specimen Type: BLOOD No comment entered. Ordering Provider: MELISSA DU Report Released Date/Time: October 10, 2023 10:28 AM Reporting Lab: [facility] [address] Performing Lab: [facility] [address] [facility] CBC HEMOGLOBIN [MASS/VOLUM E] IN BLOOD 14.9 g/dL 13.5 - 17.9 10/09 Specimen Type: BLOOD No comment entered. Ordering Provider: MELISSA DU Report Released Date/Time: October 10, 2023 10:28 AM Reporting Lab: [facility] [address] Performing Lab: [facility] [address] [facility] CBC HEMATOCRIT [VOLUME FRACTION] OF BLOOD BY AUTOMATED COUNT 42.0 41 - 54 10/09 Specimen Type: BLOOD No comment entered. Ordering Provider: MELISSA DU Report Released Date/Time: October 10, 2023 10:28 AM Reporting Lab: [facility] [address] Performing Lab: [facility] [address] [facility] CBC MCV [ENTITIC VOLUME] BY AUTOMATED COUNT 85.5 fL 80 - 100 10/09 Specimen Type: BLOOD No comment entered. Ordering Provider: MELISSA DU Report Released Date/Time: October 10, 2023 10:28 AM Reporting Lab: [facility] [address] Performing Lab: [facility] [address] [facility] CBC MCH [ENTITIC MASS] BY AUTOMATED COUNT 30.3 pg 27 - 33 10/09 Specimen Type: BLOOD No comment entered. Ordering Provider: MELISSA DU Report Released Date/Time: October 10, 2023 10:28 AM Reporting Lab: [facility] [address] Performing Lab: [facility] [address] [facility] CBC MCHC [MASS/VOLUM E] BY AUTOMATED COUNT 35.5 g/dL 32.0 - 37.5 10/09 Specimen Type: BLOOD No comment entered. Ordering Provider: MELISSA DU Report Released Date/Time: October 10, 2023 10:28 AM Reporting Lab: [facility] [address] Performing Lab: [facility] [address] [facility] CBC PLATELETS [#/VOLUME] IN BLOOD BY AUTOMATED COUNT 336 10*3/u L 150 - 400 10/09 Specimen Type: BLOOD No comment entered. Ordering Provider: MELISSA DU Report Released Date/Time: October 10, 2023 10:28 AM Reporting Lab: [facility] [address] Performing Lab: [facility] [address] [facility] CBC PLATELET MEAN VOLUME [ENTITIC VOLUME] IN BLOOD BY AUTOMATED COUNT 10.0 fL 7.4 - 10.4 10/09 Specimen Type: BLOOD No comment entered. Ordering Provider: MELISSA DU Report Released Date/Time: October 10, 2023 10:28 AM Reporting Lab: [facility] [address] Performing Lab: [facility] [address] [facility] CBC ERYTHROCYTE DISTRIBUTIO N WIDTH [RATIO] BY AUTOMATED COUNT 11.9 11.5 - 14.5 10/09 Specimen Type: BLOOD No comment entered. Ordering Provider: MELISSA DU Report Released Date/Time: October 10, 2023 10:28 AM Reporting Lab: [facility] [address] Performing Lab: [facility] [address] [facility] COMPREHENS MATEO METABOLIC PANEL+MG [...] October 10, 2023 10:28 AM Reporting Lab: [facility] [address] Performing Lab: [facility] [address] [facility] COMPREHENS MATEO METABOLIC PANEL+MG [...] October 10, 2023 10:28 AM Reporting Lab: [facility] [address] Performing Lab: [facility] [address] [facility] COMPREHENS MATEO METABOLIC PANEL+MG [...] October 10, 2023 10:28 AM Reporting Lab: [facility] [address] Performing Lab: [facility] [address] [facility] COMPREHENS MATEO METABOLIC PANEL+MG [...] October 10, 2023 10:28 AM Reporting Lab: [facility] [address] Performing Lab: [facility] [address] [facility] COMPREHENS MATEO METABOLIC PANEL+MG [...] October 10, 2023 10:28 AM Reporting Lab: [facility] [address] Performing Lab: [facility] [address] [facility] COMPREHENS MATEO METABOLIC PANEL+MG [...] October 10, 2023 10:28 AM Reporting Lab: [facility] [address] Performing Lab: [facility] [address] [facility] COMPREHENS MATEO METABOLIC PANEL+MG [...] October 10, 2023 10:28 AM Reporting Lab: [facility] [address] Performing Lab: [facility] [address] [facility] COMPREHENS MATEO METABOLIC PANEL+MG [...] October 10, 2023 10:28 AM Reporting Lab: [facility] [address] Performing Lab: [facility] [address] [facility] COMPREHENS MATEO METABOLIC PANEL+MG [...] October 10, 2023 10:28 AM Reporting Lab: [facility] [address] Performing Lab: [place] [address] [facility] COMPREHENS MATEO METABOLIC PANEL+MG [...] October 10, 2023 10:28 AM Reporting Lab: [facility] [address] Performing Lab: [facility] [address] [facility] COMPREHENS MATEO METABOLIC PANEL+MG [...] October 10, 2023 10:28 AM Reporting Lab: [facility] [address] Performing Lab: [facility] [address] [facility] COMPREHENS MATEO METABOLIC PANEL+MG [...] October 10, 2023 10:28 AM Reporting Lab: [facility] [address] Performing Lab: [facility] [address] [facility] COMPREHENS MATEO METABOLIC PANEL+MG [...] October 10, 2023 10:28 AM Reporting Lab: [facility] [address] Performing Lab: [facility] [address] [facility] COMPREHENS MATEO METABOLIC PANEL+MG [...] October 10, 2023 10:28 AM Reporting Lab: [facility] [address] Performing Lab: [facility] [address] [facility] COMPREHENS MATEO METABOLIC PANEL+MG [...] October 10, 2023 10:28 AM Reporting Lab: [facility] [address] Performing Lab: [facility] [address] [facility] COMPREHENS MATEO METABOLIC PANEL+MG [...] October 10, 2023 10:28 AM Reporting Lab: [facility] [address] Performing Lab: [facility] [address] ALIA BURGOS COMPREHENS MATEO METABOLIC PANEL+MG GLOMERULAR FILTRATION RATE/1.73 [...] October 10, 2023 10:28 AM Reporting Lab: [facility] [address] Performing Lab: [facility] [address] ALIA BURGOS HEMOGLOBIN A1C HEMOGLOBIN A1C/HEMOGLO BIN.TOTAL IN BLOOD [...] October 10, 2023 10:28 AM Reporting Lab: [facility] [address] Performing Lab: [facility] [address] ALIA BURGOS LIPID PANEL,NON- FASTING CHOLESTEROL [MASS/VOLUM E] IN [...] October 10, 2023 10:28 AM Reporting Lab: [facility] [address] Performing Lab: [facility] [address] [facility] LIPID PANEL,NON- FASTING CHOLESTEROL [...] October 10, 2023 10:28 AM Reporting Lab: [facility] [address] Performing Lab: [facility] [address] [facility] LIPID PANEL,NON- FASTING CHOLESTEROL [...] October 10, 2023 10:28 AM Reporting Lab: [facility] [address] Performing Lab: [facility] [address] [facility] LIPID PANEL,NON- FASTING CHOLESTEROL [...] October 10, 2023 10:28 AM Reporting Lab: [facility] [address] Performing Lab: [facility] [address] ALIA BURGOS LIPID PANEL,NON- FASTING CHOLESTEROL NON [...] October 10, 2023 10:28 AM Reporting Lab: [facility] [address] Performing Lab: [facility] [address] ALIA BURGOS LIPID PANEL,NON- FASTING TRIGLYCERID E [...] October 10, 2023 10:28 AM Reporting Lab: [facility] [address] Performing Lab: [facility] [address] ALIA BURGOS TSH W/REFLEX TO FREE T4 [...] October 10, 2023 10:28 AM Reporting Lab: [facility] [address] Performing Lab: [facility] [address] [facility] CBC LEUKOCYTES [#/VOLUME] IN BLOOD BY AUTOMATED COUNT 6.48 10*3/u L 4.0 - 11.0 09/24 Specimen Type: BLOOD No comment entered. Ordering Provider: GRANDIA,CONN IE M Report Released Date/Time: September 24, 2022 11:50 AM Reporting Lab: [facility] [address] Performing Lab: [facility] [address] [facility] CBC ERYTHROCYTE S [#/VOLUME] IN BLOOD BY AUTOMATED COUNT 4.98 10*6/u L 4.6 - 6.2 09/24 Specimen Type: BLOOD No comment entered. Ordering Provider: MELISSA DU Report Released Date/Time: September 24, 2022 11:50 AM Reporting Lab: [facility] [address] Performing Lab: [facility] [address] [facility] CBC HEMOGLOBIN [MASS/VOLUM E] IN BLOOD 15.1 g/dL 13.5 - 17.9 09/24 Specimen Type: BLOOD No comment entered. Ordering Provider: MELISSA DU Report Released Date/Time: September 24, 2022 11:50 AM Reporting Lab: [facility] [address] Performing Lab: [facility] [address] [facility] CBC HEMATOCRIT [VOLUME FRACTION] OF BLOOD BY AUTOMATED COUNT 44.7 41 - 54 09/24 Specimen Type: BLOOD No comment entered. Ordering Provider: MELISSA DU Report Released Date/Time: September 24, 2022 11:50 AM Reporting Lab: [facility] [address] Performing Lab: [facility] [address] [facility] CBC MCV [ENTITIC VOLUME] BY AUTOMATED COUNT 89.8 fL 80 - 100 09/24 Specimen Type: BLOOD No comment entered. Ordering Provider: MELISSA DU Report Released Date/Time: September 24, 2022 11:50 AM Reporting Lab: [facility] [address] Performing Lab: [facility] [address] [facility] CBC MCH [ENTITIC MASS] BY AUTOMATED COUNT 30.3 pg 27 - 33 09/24 Specimen Type: BLOOD No comment entered. Ordering Provider: MELISSA DU Report Released Date/Time: September 24, 2022 11:50 AM Reporting Lab: [facility] [address] Performing Lab: [facility] [address] [facility] CBC MCHC [MASS/VOLUM E] BY AUTOMATED COUNT 33.8 g/dL 32.0 - 37.5 09/24 Specimen Type: BLOOD No comment entered. Ordering Provider: MELISSA DU Report Released Date/Time: September 24, 2022 11:50 AM Reporting Lab: [facility] [address] Performing Lab: [facility] [address] [facility] CBC PLATELETS [#/VOLUME] IN BLOOD BY AUTOMATED COUNT 340 10*3/u L 150 - 400 09/24 Specimen Type: BLOOD No comment entered. Ordering Provider: MELISSA DU Report Released Date/Time: September 24, 2022 11:50 AM Reporting Lab: [facility] [address] Performing Lab: [facility] [address] [facility] CBC PLATELET MEAN VOLUME [ENTITIC VOLUME] IN BLOOD BY AUTOMATED COUNT 10.0 fL 7.4 - 10.4 09/24 Specimen Type: BLOOD No comment entered. Ordering Provider: MELISSA DU Report Released Date/Time: September 24, 2022 11:50 AM Reporting Lab: [facility] [address] Performing Lab: [facility] [address] [facility] CBC ERYTHROCYTE DISTRIBUTIO N WIDTH [RATIO] BY AUTOMATED COUNT 12.3 11.5 - 14.5 09/24 Specimen Type: BLOOD No comment entered. Ordering Provider: MELISSA DU Report Released Date/Time: September 24, 2022 11:50 AM Reporting Lab: [facility] [address] Performing Lab: [facility] [address] [facility] COMPREHENS MATEO METABOLIC PANEL+MG CREATININE [MASS/VOLUM E] IN SERUM OR PLASMA 1.1 mg/dL 0.7 - 1.2 09/24 Specimen Type: PLASMA No comment entered. Ordering Provider: MELISSA DU Report Released Date/Time: September 24, 2022 11:50 AM Reporting Lab: [facility] [address] Performing Lab: [facility] [address] [facility] COMPREHENS MATEO METABOLIC PANEL+MG UREA NITROGEN [MASS/VOLUM E] IN SERUM OR PLASMA 21 mg/dL 8 - 26 09/24 Specimen Type: PLASMA No comment entered. Ordering Provider: MELISSA DU Report Released Date/Time: September 24, 2022 11:50 AM Reporting Lab: [facility] [address] Performing Lab: [facility] [address] [facility] COMPREHENS MATEO METABOLIC PANEL+MG GLUCOSE [MASS/VOLUM E] IN SERUM OR PLASMA 98 mg/dL 70 - 100 09/24 Specimen Type: PLASMA No comment entered. Ordering Provider: MELISSA DU Report Released Date/Time: September 24, 2022 11:50 AM Reporting Lab: [facility] [address] Performing Lab: [facility] [address] [facility] COMPREHENS MATEO METABOLIC PANEL+MG SODIUM [MOLES/VOLU ME] IN SERUM OR PLASMA 138 mmol/L 136 - 145 09/24 Specimen Type: PLASMA No comment entered. Ordering Provider: MELISSA DU Report Released Date/Time: September 24, 2022 11:50 AM Reporting Lab: [facility] [address] Performing Lab: [facility] [address] [facility] COMPREHENS MATEO METABOLIC PANEL+MG POTASSIUM [MOLES/VOLU ME] IN SERUM OR PLASMA 3.8 mmol/L 3.5 - 5.1 09/24 Specimen Type: PLASMA No comment entered. Ordering Provider: MELISSA DU Report Released Date/Time: September 24, 2022 11:50 AM Reporting Lab: [facility] [address] Performing Lab: [facility] [address] [facility] COMPREHENS MATEO METABOLIC PANEL+MG CHLORIDE [MOLES/VOLU ME] IN SERUM OR PLASMA 103 mmol/L 98 - 107 09/24 Specimen Type: PLASMA No comment entered. Ordering Provider: MELISSA DU Report Released Date/Time: September 24, 2022 11:50 AM Reporting Lab: [facility] [address] Performing Lab: [facility] [address] [facility] COMPREHENS MATEO METABOLIC PANEL+MG CARBON DIOXIDE, TOTAL [MOLES/VOLU ME] IN SERUM OR PLASMA 27 mmol/L 22 - 29 09/24 Specimen Type: PLASMA No comment entered. Ordering Provider: MELISSA DU Report Released Date/Time: September 24, 2022 11:50 AM Reporting Lab: [facility] [address] Performing Lab: [place] [address] [facility] COMPREHENS MATEO METABOLIC PANEL+MG CALCIUM [MASS/VOLUM E] IN SERUM OR PLASMA 9.1 mg/dL 8.4 - 10.2 09/24 Specimen Type: PLASMA No comment entered. Ordering Provider: MELISSA DU Report Released Date/Time: September 24, 2022 11:50 AM Reporting Lab: [facility] [address] Performing Lab: [facility] [address] [facility] COMPREHENS MATEO METABOLIC PANEL+MG PROTEIN [MASS/VOLUM E] IN SERUM OR PLASMA 7.7 g/dL 6.0 - 8.3 09/24 Specimen Type: PLASMA No comment entered. Ordering Provider: MELISSA DU Report Released Date/Time: September 24, 2022 11:50 AM Reporting Lab: [facility] [address] Performing Lab: [facility] [address] [facility] COMPREHENS MATEO METABOLIC PANEL+MG ALBUMIN [MASS/VOLUM E] IN SERUM OR PLASMA 4.4 g/dL 3.5 - 5.2 09/24 Specimen Type: PLASMA No comment entered. Ordering Provider: MELISSA DU Report Released Date/Time: September 24, 2022 11:50 AM Reporting Lab: [facility] [address] Performing Lab: [facility] [address] [facility] COMPREHENS MATEO METABOLIC PANEL+MG BILIRUBIN.T OTAL [MASS/VOLUM E] IN SERUM OR PLASMA 0.7 mg/dL 0.2 - 1.2 09/24 Specimen Type: PLASMA No comment entered. Ordering Provider: MELISSA DU Report Released Date/Time: September 24, 2022 11:50 AM Reporting Lab: [facility] [address] Performing Lab: [facility] [address] [facility] COMPREHENS MATEO METABOLIC PANEL+MG MAGNESIUM [MASS/VOLUM E] IN SERUM OR PLASMA 2.0 mg/dL 1.6 - 2.6 09/24 Specimen Type: PLASMA No comment entered. Ordering Provider: MELISSA DU Report Released Date/Time: September 24, 2022 11:50 AM Reporting Lab: [facility] [address] Performing Lab: [facility] [address] [facility] COMPREHENS MATEO METABOLIC PANEL+MG ANION GAP IN SERUM OR PLASMA 8 mmol/L 5 - 15 09/24 Specimen Type: PLASMA No comment entered. Ordering Provider: MELISSA DU Report Released Date/Time: September 24, 2022 11:50 AM Reporting Lab: [facility] [address] Performing Lab: [facility] [address] [facility] COMPREHENS MATEO METABOLIC PANEL+MG ALKALINE PHOSPHATASE [ENZYMATIC ACTIVITY/VO LUME] IN SERUM OR PLASMA 31 U/L 40 - 150 09/24 L Specimen Type: PLASMA No comment entered. Ordering Provider: MELISSA DU Report Released Date/Time: September 24, 2022 11:50 AM Reporting Lab: [facility] [address] Performing Lab: [facility] [address] [facility] COMPREHENS MATEO METABOLIC PANEL+MG ALANINE AMINOTRANSF ERASE [ENZYMATIC ACTIVITY/VO LUME] IN SERUM OR PLASMA 32 U/L <55 - 55 09/24 Specimen Type: PLASMA No comment entered. Ordering Provider: MELISSA DU Report Released Date/Time: September 24, 2022 11:50 AM Reporting Lab: [facility] [address] Performing Lab: [facility] [address] [facility] COMPREHENS MATEO METABOLIC PANEL+MG ASPARTATE AMINOTRANSF ERASE [ENZYMATIC ACTIVITY/VO LUME] IN SERUM OR PLASMA 22 U/L <34 - 34 09/24 Specimen Type: PLASMA No comment entered. Ordering Provider: MELISSA DU Report Released Date/Time: September 24, 2022 11:50 AM Reporting Lab: [facility] [address] Performing Lab: [facility] [address] ALIA ESPINO [facility] COMPREHENS MATEO METABOLIC PANEL+MG GLOMERULAR FILTRATION RATE/1.73 SQ M.PREDICTED [VOLUME RATE/AREA] IN SERUM, PLASMA OR BLOOD BY CREATININE- BASED FORMULA (CKD-EPI) >90 60 09/24 Specimen Type: PLASMA No comment entered. Ordering Provider: MELISSA DU Report Released Date/Time: September 24, 2022 11:50 AM Reporting Lab: [facility] [address] Performing Lab: [facility] [address] ALIA BURGOS HEMOGLOBIN A1C HEMOGLOBIN A1C/HEMOGLO BIN.TOTAL IN BLOOD [...] September 24, 2022 11:50 AM Reporting Lab: [facility] [address] Performing Lab: [facility] [address] ALIA BURGOS LIPID PANEL,NON- FASTING CHOLESTEROL [MASS/VOLUM E] IN SERUM OR PLASMA 213 mg/dL <199 - 199 09/24 H Specimen Type: PLASMA No comment entered. Ordering Provider: MELISSA DU Report Released Date/Time: September 24, 2022 11:50 AM Reporting Lab: [facility] [address] Performing Lab: [facility] [address] [facility] KENZIE [facility] LIPID PANEL,NON- FASTING CHOLESTEROL IN HDL [MASS/VOLUM E] IN SERUM OR PLASMA 40 mg/dL 40 09/24 Specimen Type: PLASMA No comment entered. Ordering Provider: MELISSA DU Report Released Date/Time: September 24, 2022 11:50 AM Reporting Lab: [facility] [address] Performing Lab: [facility] [address] ALIA KENZIE [facility] LIPID PANEL,NON- FASTING CHOLESTEROL IN LDL [MASS/VOLUM E] IN SERUM OR PLASMA BY CALCULATION 140 mg/dL <99 - 99 09/24 H Specimen Type: PLASMA No comment entered. Ordering Provider: MELISSA DU Report Released Date/Time: September 24, 2022 11:50 AM Reporting Lab: [facility] [address] Performing Lab: [facility] [address] ALIA KENZIE [facility] LIPID PANEL,NON- FASTING CHOLESTEROL IN VLDL [MASS/VOLUM E] IN SERUM OR PLASMA BY CALCULATION 33 mg/dL <29 - 29 09/24 H Specimen Type: PLASMA No comment entered. Ordering Provider: MELISSA DU Report Released Date/Time: September 24, 2022 11:50 AM Reporting Lab: [facility] [address] Performing Lab: [facility] [address] ALIA KENZIE [facility] LIPID PANEL,NON- FASTING CHOLESTEROL NON HDL [MASS/VOLUM E] IN SERUM OR PLASMA 173 mg/dL <129 - 129 09/24 H Specimen Type: PLASMA No comment entered. Ordering Provider: MELISSA DU Report Released Date/Time: September 24, 2022 11:50 AM Reporting Lab: [facility] [address] Performing Lab: [facility] [address] ALIA KENZIE [facility] LIPID PANEL,NON- FASTING TRIGLYCERID E [MASS/VOLUM E] IN SERUM OR PLASMA 164 mg/dL <149 - 149 09/24 H Specimen Type: PLASMA No comment entered. Ordering Provider: MELISSA DU Report Released Date/Time: September 24, 2022 11:50 AM Reporting Lab: [facility] [address] Performing Lab: [facility] [address] ALIA ESPINO [facility] TSH W/REFLEX TO FREE T4 THYROTROPIN [UNITS/VOLU ME] IN SERUM OR PLASMA 1.51 u[IU]/ mL 0.35 - 4.94 09/24 Specimen Type: PLASMA No comment entered. Ordering Provider: MELISSA DU Report Released Date/Time: September 24, 2022 11:50 AM Reporting Lab: [facility] [address] Performing Lab: [facility] [address] ALIA KENZIE [facility] Vital Signs Combined list [...] Date DC Date Status Disposition Source Medical Group([facility] C Post Immunizat ion) OUTPATIENT [id number] IET PPD JESUS MILNER 09/14 Released w/o Limitations Medical Group(M [facility] Post Immuniz ation) Medical Group(IEP Hearing Conservat ion) OUTPATIENT [id number] JE THOMPSON 09/14 Released w/o Limitations Medical Group(I EP Hearing Conserv ation) Medical Group(PES Optometry -Trainee) OUTPATIENT [id number] ROSCOE DOWNS 09/19 Released w/o Limitations Medical Group(P ES Optomet ry-Delfino nee) Medical Group([facility] C Immediate Care Clinic) OUTPATIENT [id number] 18 y/o M SIT c/o Fever/S inus LASHAY Thomson 11/05 Sick at Home/Quarter s Medical Group([facility] Immedia te Care Clinic) Medical Group(C Ambulator y) OUTPATIENT [id number] VASQUEZ PAT *PA* 11/06 Sick at Home/Quarter s [facility] Medical Group(T MC Ambulat ory) NOAM Olivo([facility] General Medicine) OUTPATIENT [id number] foot pain JESSICA ORELLANA 06/07 Released with Work/Duty Limitations NOAM Olivo([facility] General Medicin e) NOAM Olivo(Clinic al Dietetics ) OUTPATIENT [id number] [employer] ESTELA GR HALLE 07/18 Released w/o Limitations NOAM Olivo(Clin ical Dieteti cs) NOAM Olivo(Physic al Therapy) OUTPATIENT [id number] 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 TAJTOLU LOVE 07/25 Released w/o Limitations NOAM Olivo(Phys ical Therapy ) NOAM Olivo(Clinic al Dietetics ) OUTPATIENT [id number] f/uArmy MOVE, session 9 keep it going RACHEL BEASLEY 08/01 Released w/o Limitations NOAM Olivo(Clin ical Dieteti cs) NOAM Olivo(Clinic al Dietetics ) OUTPATIENT [id number] f/u [employer] Session 3 RACHEL BEASLEY K 08/15 Released w/o Limitations NOAM Olivo(Clin ical Dieteti cs) NOAM Olivo(Physic al Therapy) OUTPATIENT [id number] [employer] MOVES CLASS TOLU PUENTES 08/29 Released w/o Limitations NOAM Olivo(Phys ical Therapy ) NOAM Olivo(Clinic al Dietetics ) OUTPATIENT [id number] f/u [employer], Session 5 ESTELA GR 09/07 Released w/o Limitations NOAM Olivo(Clin ical Dieteti cs) NOAM Olivo(Clinic al Dietetics ) OUTPATIENT [id number] f/u [employer], Session 7, tip the balance RACHEL BEASLEY K 09/19 Released w/o Limitations NOAM Olivo(Clin ical Dieteti cs) NOAM Olivo([facility]) OUTPATIENT [id number] DEBRA RAYA 12/05 Immediate Referral NOAM Olivo([facility]) NOAM Olivo([facility] General Medicine) OUTPATIENT [id number] lesion on shaft of penis ESTEBAN, JESSICA E 12/06 Released w/o Limitations NOAM Olivo([facility] General Medicin e) NOAM Olivo(Hearin g Conservat ion 2) OUTPATIENT [id number] Hearing Exam ALKA ESPINOSA 12/26 Released w/o Limitations NOAM Olivo(Hear ing Conserv ation 2) NOAM Olivo([facility]) OUTPATIENT [id number] asthma, not control led LUISA DOTSON 03/20 Released w/o Limitations NOAM Olivo([facility]) Theater Facility OUTPATIENT [id number] 07/18 Released w/o Limitations Theater Facilit y Theater Facility OUTPATIENT [id number] 08/13 Released with Work/Duty Limitations Theater Facilit y NOAM Olivo(Deploy ment) OUTPATIENT [id number] Luis Enrique FLORES ABS,VIS MABEL SOLITARIO Anisha 03/22 Released w/o Limitations NOAM Olivo(Depl oyment) NOAM Olivo([facility]) OUTPATIENT [id number] BROWNLISANDRA 05/09 Released w/o Limitations NOAM Olivo([facility]) NOAM Olivo([facility] 2) OUTPATIENT [id number] rash on hands MARK, DAVID T. 06/04 Released w/o Limitations NOAM Olivo([facility]3J [facility] 2) NOAM Olivo([facility] 2) TELE CONSULT [id number] Over weight program , nutrito n referra l MARK, DAVID T. 06/28 NOAM Olivo([facility]J [facility] 2) NOAM Olivo(Clinic al Dietetics ) OUTPATIENT [id number] [employer] ESTELA GR 07/10 Released w/o Limitations NOAM Olivo(Clin ical Dieteti cs) NOAM Olivo([facility] 2) OUTPATIENT [id number] rash on face MARK, DAVID T. 07/19 Released w/o Limitations NOAM Olivo([facility] 2) NOAM Olivo([facility] 2) OUTPATIENT [id number] rash on face MARK, DAVID T. 07/23 Released w/o Limitations NOAM Olivo([facility] M03J [facility] 2) NOAM Olivo([facility] 2) OUTPATIENT [id number] f/u eye infecti on MARK, DAVID T. 07/28 Released w/o Limitations NOAM Olivo([facility] M03J [facility] 2) NOAM Olivo([facility] 2) OUTPATIENT [id number] Follow up eye infecti on MARK, DAVID T. 08/01 Released w/o Limitations NOAM Olivo([facility] 2) NOAM Olivo(Clinic al Dietetics ) OUTPATIENT [id number] F/U [employer] M[employer], Module 2 JULISA MCKEON 08/07 Released w/o Limitations NOAM Olivo(Clin ical Dieteti cs) NOAM Olivo([facility] 2) OUTPATIENT [id number] Browne Splints , LBP, Plantar pain DAVID FLORES T. 08/11 Released w/o Limitations NOAM Olivo([facility] 2) NOAM Olivo(Hearin g Conservat ion) OUTPATIENT [id number] Hearing Exam FRANCISCA TRISTONCLAUDIA Baker 08/13 Released w/o Limitations NOAM Olivo(Hear ing Conserv ation) NOAM Olivo(Deploy ment) OUTPATIENT [id number] PDHRA/V EVENS HANSON 08/13 Released w/o Limitations NOAM Olivo(Depl oyment) NOAM Olivo([facility] 2) OUTPATIENT [id number] Acute LBP DAVID FLORES T. 08/25 Released w/o Limitations NOAM Olivo([facility] 2) NOAM Olivo([address] [facility] 3) OUTPATIENT [id number] Chapter 18 RAI, CHELO L 09/30 Released w/o Limitations NOAM Olivo([address] [facility] 3) NOAM Olivo([facility] Opto) OUTPATIENT [id number] chapter physica l LOLA KELLY T 10/01 Released w/o Limitations NOAM Olivo([facility] Opto) NOAM Olivo([facility] 2) OUTPATIENT [id number] phase 2, chapter DAVID FLORES T. 10/14 Released w/o Limitations NOAM Olivo([facility] 2) NOAM Olivo(Deploy ment) OUTPATIENT [id number] [place] JEFFERS E 10/22 Released w/o Limitations NOAM Olivo(Depl oyment) NOAM Olivo([facility]) OUTPATIENT [id number] lower back pain JOSE MANUEL, CAITIE M 10/28 Released w/o Limitations NOAM Olivo([facility] Chiro) NOAM Olivo([facility] Chiro) OUTPATIENT [id number] lbp JOSE MANUEL, CAITIE M 11/17 Released w/o Limitations NOAM Olivo([facility] Chiro) NOAM Olivo([facility]) OUTPATIENT [id number] lbp JOSE MANUEL, CAITIE M 11/21 Released w/o Limitations NOAM Olivo([facility]) NOAM Olivo([address] 2) OUTPATIENT [id number] lower back pain MARKDAVID T. 11/21 Released w/o Limitations NOAM Olivo([address] 2) NOAM Olivo([facility]) OUTPATIENT [id number] lumbar PRETTY, SANDRO E 12/03 Released w/o Limitations NOAM Olivo([facility]) NOAM Olivo([facility]) OUTPATIENT [id number] lbp JOSE MANUEL, CAITIE M 12/07 Released w/o Limitations NOAM Olivo([facility]) [place] [facility] Outpatient Encounter [id number] 01/08 [place] [facility] [place] [facility] Outpatient Encounter [id number] 02/20 [place] [facility] [place] [facility] Outpatient Encounter [id number] SIDRA SOUZA 04/29 [place] [facility] [place] [facility] Outpatient Encounter [id number] SIDRA SOUZA 04/29 [place] [facility] [place] [facility] Outpatient Encounter [id number] MARYA KELLER BARBARA J 04/29 [facility] [place] [facility] Outpatient Encounter [id number] JAXONMARIBELL Baker M 05/02 [facility] [place] [facility] Outpatient Encounter [id number] 08/10 [facility] [place] [facility] Outpatient Encounter [id number] 08/20 [facility] [place] [facility] Outpatient Encounter [id number] CHETNA MERCEDES 09/04 [facility] Outpatient Encounter [id number] Diagnos is: ICD-10- CM Z77.110 Contact with and (suspec silvano) exposur e to air polluti on
FLACA INFANTE 09/07 [facility] Outpatient Encounter [id number] 09/16 [facility] Outpatient [facility]counter [id number] 09/22 [facility] Outpatient Encounter [id number] 10/01 [facility] Outpatient Encounter [id number] AMOS DU 10/09 [facility] ALIA ESPINO [facility] SAULT OFFICE O/P EST HI 40 MIN [id number] Diagnos is: ICD-10- CM G47.30 Sleep apnea, unspeci fied
AMOS DU 10/09 ALIA ESPINO [facility] HEMOGLOBIN [id number] Diagnos is: ICD-10- CM Z77.9 Oth contact w and (suspec slivano) exposur es hazardo us to health< br/> WRZOS,JHON SANTOS FANY 10/16 [place] [facility] [place] [facility] Outpatient Encounter [id number] 10/16 [place] [facility] Outpatient Encounter [id number] 10/27 [facility] [place] [facility] Outpatient Encounter [id number] SIDRA SOUZA 12/28 [place] [facility] [place] [facility] Outpatient Encounter [id number] SIDRA SOUZA 12/28 [place] [facility] [place] [facility] Outpatient Encounter [id number] BAIRON MCDONNELL 01/07 [place] [facility] [place] [facility] Outpatient Encounter [id number] SIDRA SOUZA 01/11 [place] [facility] [place] [facility] Outpatient Encounter [id number] SIDRA SOUZA 01/11 [place] [facility] [place] [facility] Outpatient Encounter [id number] 01/11 [place] [facility] [place] [facility] Outpatient Encounter [id number] SIDRA SOUZA 02/09 [place] [facility] [place] [facility] Outpatient Encounter [id number] SIDRA SOUZA 02/09 [place] [facility] [place] [facility] Outpatient Encounter [id number] 02/10 [place] [facility] [place] [facility] Outpatient Encounter [id number] 02/18 [place] [facility] [place] [facility] UNLISTED PULMONARY SVC/PX [id number] Diagnos is: ICD-10- CM G47.30 Sleep apnea, unspeci fied
AZAM HANNA 02/23 [place] [facility] [place] [facility] Outpatient Encounter [id number] 02/26 [place] [facility] [place] [facility] Outpatient Encounter [id number] 03/01 [place] [facility] [place] [facility] Outpatient Encounter [id number] BAIRON MCDONNELL ICA S 03/25 [place] [facility] [place] [facility] Outpatient Encounter [id number] BAIRON MCDONNELL ICA S 03/25 [facility] Procedures Combined list of: 1) Procedures from Department of Veterans Affairs facilities going back up to thelast 18 months, not all [place] non-surgical procedures are included; 2) All procedures from the Department of Defense facilities. Procedure Procedure Type Code Date Perfomer Comments Sourc e VIS FUNCT SCREEN,AUTOMAT/SEMI- AUTOMAT BILAT QUANT DETERM VISUAL ACUITY,OCULAR ALIGN,COLOR VISION,PSEUDOISOCHRO MAT PLATES,& FIELD VIS (MAY INC ALL/SOME SCRN DETERM FOR CONTRAST SENSITIV,VIS UND GLARE) 9 [facility] ANALYSIS OF CLINICAL DATA STORED IN COMPUTERS [...] 2 DoD PSYCHIATRIC DIAGNOSTIC INTERVIEW EXAMINATION 2 [facility] SCREENING TEST OF VISUAL ACUITY, QUANTITATIVE, BILATERAL 2 DoD AUDIOMETRIC TESTING OF GROUPS 2 DoD MEDICAL NUTRITION THERAPY; GROUP (2 OR MORE INDIVIDUAL(S)), EACH 30 MINUTES 2 DoD INDIVIDUAL PSYCHOTHERAPY, INSIGHT ORIENTED, BEHAVIOR MODIFYING AND/OR SUPPORTIVE, IN AN OFFICE OR OUTPATIENT FACILITY, APPROXIMATELY 45 TO 50 MINUTES [id number] WITH THE PATIENT 2 [facility] PSYCHIATRIC DIAGNOSTIC INTERVIEW EXAMINATION 2 [facility] MEDICAL NUTRITION THERAPY; GROUP (2 OR MORE INDIVIDUAL(S)), EACH 30 MINUTES 2 [facility] SCREENING TEST OF VISUAL ACUITY, QUANTITATIVE, BILATERAL 1 DoD COLLECTION OF VENOUS BLOOD BY VENIPUNCTURE 0 [facility] EAR PROTECTOR ATTENUATION MEASUREMENTS 0 DoD SKIN TEST; TUBERCULOSIS, INTRADERMAL 0 [facility] SCREENING TEST OF VISUAL ACUITY, QUANTITATIVE, BILATERAL 0 DoD APPLICATION OF SURFACE (TRANSCUTANEOUS) NEUROSTIMULATOR (EG, TENS UNIT) 0 [facility] PSYCHIATRIC DIAGNOSTIC INTERVIEW EXAMINATION 0 DoD APPLICATION OF SURFACE (TRANSCUTANEOUS) NEUROSTIMULATOR (EG, TENS UNIT) 0 DoD INDIVIDUAL PSYCHOTHERAPY, INSIGHT ORIENTED, BEHAVIOR MODIFYING AND/OR SUPPORTIVE, IN AN OFFICE OR OUTPATIENT FACILITY, APPROXIMATELY 45 TO 50 MINUTES [id number] W THE PATIENT; W MED EVAL & MGT SER 0 DoD APPLICATION OF SURFACE (TRANSCUTANEOUS) NEUROSTIMULATOR (EG, TENS UNIT) 0 DoD APPLICATION OF SURFACE (TRANSCUTANEOUS) NEUROSTIMULATOR (EG, TENS UNIT) 0 DoD APPLICATION OF SURFACE (TRANSCUTANEOUS) NEUROSTIMULATOR (EG, TENS UNIT) 0 [facility] PSYCHIATRIC DIAGNOSTIC INTERVIEW EXAMINATION 0 [facility] WEIGHT MANAGEMENT CLASSES, NON-PHYSICIAN PROVIDER, PER SESSION 0 [facility] MEDICAL NUTRITION THERAPY; GROUP (2 OR MORE INDIVIDUAL(S)), EACH 30 MINUTES 0 [facility] EDUCATION &TRAINING, PATIENT SELF-MGT QUALIFIED, NONPHYSICIAN [facility] ATTENDANT USING STANDARDIZED CURRICULUM, [id number] W THE PATIENT (COULD INCL CAREGIVER/FAMILY) EA 30 MIN; 5-8 PATIENTS 0 [facility] WEIGHT MANAGEMENT CLASSES, NON-PHYSICIAN PROVIDER, PER SESSION 0 [facility] INTERACTIVE GROUP PSYCHOTHERAPY 0 [facility] WEIGHT MANAGEMENT CLASSES, NON-PHYSICIAN PROVIDER, PER SESSION 0 [facility] EDUCATION &TRAINING, PATIENT SELF-MGT QUALIFIED, NONPHYSICIAN [facility] ATTENDANT USING STANDARDIZED CURRICULUM, [id number] W THE PATIENT (COULD INCL CAREGIVER/FAMILY) EA 30 MIN; 5-8 PATIENTS 0 [facility] HEPATITIS A AND HEPATITIS B VACCINE (HEPA-HEPB), ADULT DOSAGE, FOR INTRAMUSCULAR USE 0 [facility] SCREENING TEST OF VISUAL ACUITY, QUANTITATIVE, BILATERAL 0 [facility] NUTRITION CLASSES, NON-PHYSICIAN PROVIDER, PER SESSION 0 [facility] COLLECTION OF VENOUS BLOOD BY VENIPUNCTURE 9 [facility] SCREENING TEST OF VISUAL ACUITY, QUANTITATIVE, BILATERAL 9 [facility] Chiropractic Manip Treatmt (CMT) Spinal One To Two Regions Chiropractic Manip Treatmt (CMT) Spinal One To Two Regions 20972 2 CAITIE RICHARD [facility] PT A e ment Kinetic Training PT Assessment Kinetic Training 63828 2 SANDRO PRETTY [facility] Physical Therapy Service Evaluation Physical Therapy Service Evaluation 41071 2 SANDRO PRETTY [facility] Chiropractic Manip Treatmt (CMT) Spinal Three To Four Region Chiropractic Manip Treatmt (CMT) Spinal Three To Four Region 26659 2 CAITIE RICHARD [facility] Chiropractic Manip Treatmt (CMT) Spinal One To Two Regions Chiropractic Manip Treatmt (CMT) Spinal One To Two Regions 98085 2 CAITIE RICHARD [facility] Chiropractic Manip Treatmt (CMT) Spinal One To Two Regions Chiropractic Manip Treatmt (CMT) Spinal One To Two Regions 49213 2 CAITIE RICHARD [facility] Screening Test Of Visual Acuity, Quantitative, Bilateral Screening Test Of Visual Acuity, Quantitative, Bilateral 58779 2 LOLA KELLY [facility] Psychiatric Diagnostic Evaluation Comprehensive Examination Psychiatric Diagnostic Evaluation Comprehensive Examination 69665 2 TOÑITO BERNARD [facility] Audiogram (Screening) Audiogram (Screening) 45737 2 ALKA ESPINOSA [facility] Audiometry Group Testing Audiometry Group Testing 87391 2 ALKA ESPINOSA [facility] Screening Test Of Visual Acuity, Quantitative, Bilateral Screening Test Of Visual Acuity, Quantitative, Bilateral 68589 2 ACOSTAROMARIO [facility] Medical Nutrition Therapy Group (2 or More Individuals) Each 30 Minutes Medical Nutrition Therapy Group (2 or More Individuals) Each 30 Minutes 38172 2 SIMÓN ESTELA HALLE [facility] Clinical Social Work Individual Outpatient Counseling 45 Minutes Clinical Social Work Individual Outpatient Counseling 45 Minutes 54368 2 SOLA PATEL [facility] Psychiatric Diagnostic Evaluation Comprehensive Examination Psychiatric Diagnostic Evaluation Comprehensive Examination 80758 2 SOLA PATEL [facility] Medical Nutrition Therapy Group (2 or More Individuals) Each 30 Minutes Medical Nutrition Therapy Group (2 or More Individuals) Each 30 Minutes 54956 2 GAMALIEL ALLEN [facility] Venipuncture Venipuncture 78785 1 WAREROMARIO [facility] Screening Test Of Visual Acuity, Quantitative, Bilateral Screening Test Of Visual Acuity, Quantitative, Bilateral 23019 1 WARELAURIEROMARIO DoD Audiogram (Screening) Audiogram (Screening) 54994 0 ALKA ESPINOSA [facility] Audiometry Group Testing Audiometry Group Testing 05587 0 ALKA ESPINOSA [facility] Ear Protector Attenuation Measurements Ear Protector Attenuation Measurements 66750 0 ALKA ESPINOSA [facility] Install Peripheral Transcutaneous Neurostimulator Install Peripheral Transcutaneous Neurostimulator 66463 0 AJ CROSS [facility] [facility] Psych[facility] Evaluation Comprehensive Examination Psychiatric Diagnostic Evaluation Comprehensive Examination [id number] JATIN PORTER DoD Install Peripheral Transcutaneous Neurostimulator Install Peripheral Transcutaneous Neurostimulator 09491 0 AJ CROSS Psychotherapy Indiv Approx 45 Min W/ Medical Evaluation & Management Psychotherapy Indiv Approx 45 Min W/ Medical Evaluation & Management 80614 0 CARLOS TIJERINA DoD Install Peripheral Transcutaneous Neurostimulator Install Peripheral Transcutaneous Neurostimulator 93121 0 AJ CROSS Install Peripheral Transcutaneous Neurostimulator Install Peripheral Transcutaneous Neurostimulator 62591 0 AJ CROSS [facility] Install Peripheral Transcutaneous Neurostimulator Install Peripheral Transcutaneous Neurostimulator 49523 0 DEAN LYN [facility] Psychiatric Diagnostic Evaluation Comprehensive Examination Psychiatric Diagnostic Evaluation Comprehensive Examination 72649 0 ZHENGKARSTENANGEL CARLOTA L [facility] Medical Nutrition Therapy Group (2 or More Individuals) Each 30 Minutes Medical Nutrition Therapy Group (2 or More Individuals) Each 30 Minutes [id number] 0 BEASLEY, RACHEL K [facility] Weight management cla es, non-physician provider, per se ion 0 BEASLEY, RACHEL K [facility] Medical Nutrition Therapy Group (2 or More Individuals) Each 30 Minutes Medical Nutrition Therapy Group (2 or More Individuals) Each 30 Minutes [id number] ESTELA GR [facility] Weight management cla es, non-physician provider, per se ion 0 ESTELA GR [facility] Patient Counseling Medical Management Five To Eight Patients Patient Counseling Medical Management Five To Eight Patients [id number] 0 TOLU BOLANOS [facility] Medical Nutrition Therapy Group (2 or More Individuals) Each 30 Minutes Medical Nutrition Therapy Group (2 or More Individuals) Each 30 Minutes [id number] 0 BEASLEY, RACHEL K [facility] Weight management cla es, non-physician provider, per se ion 0 BEASLEY, RACHEL K [facility] Clinical Social Work Counseling Group Clinical Social Work Counseling Group 87452 0 BRENDA GOMEZ [facility] Medical Nutrition Therapy Group (2 or More Individuals) Each 30 Minutes Medical Nutrition Therapy Group (2 or More Individuals) Each 30 Minutes [id number] BEASLEY, RACHEL K [facility] Weight management cla es, non-physician provider, per se ion 0 BEASLEY RACHEL K [facility] Patient Counseling Medical Management Five To Eight Patients Patient Counseling Medical Management Five To Eight Patients [id number] 0 TOLU BOLANOS [facility] Nutrition cla es, non-physician provider, per se ion 0 ESTELA GR [facility] Medical Nutrition Therapy Group (2 or More Individuals) Each 30 Minutes Medical Nutrition Therapy Group (2 or More Individuals) Each 30 Minutes [id number] 0 ESTELA GR [facility] Visual Function Screening Visual Function Screening 47969 9 ROSCOE DOWNS [facility] Ear Protector Attenuation Measurements Ear Protector Attenuation Measurements 46494 9 JE THOMPSON Threshold Audiogram (Pure Tone) Threshold Audiogram (Pure Tone) 17404 9 JE THOMPSON Audiometry Group Testing Audiometry Group Testing 90020 9 JE THOMPSON Physician Supervised Group Educational Services 9 JE THOMPSON Special Physician Services Analysis Of Computerized Data Special Physician Services Analysis Of Computerized Data 22978 9 JE THOMPSON Ear mold/insert, not disposable, any type 9 JE HTOMPSON Immunization Administration By Injection, One Vaccine Immunization Administration By Injection, One Vaccine 85011 9 JAXON DARBY [facility] Social History Combined list of available smoking, tobacco, and other social history from Department of Defense and Veterans Affairs facilities. Social History Type Response Date Comment Sour e Tobacco smoking status WYIS VA-TOBACCO NEVER USED 10/10/19 24 ALIA ESPINO [facility] History of tobacco use VA-TOBACCO NEVER USED 09/24/2022 ALIA ESPINO [facility] History of tobacco use VA-TOBACCO NEVER USED 11/22/2021 ALIA ESPINO [facility] History of tobacco use MT-TOBACCO FORMER USER 11/07/2020 ALIA ESPINO [facility] This section is an empty social history section. DoD
--- OUTSIDE RECORDS SUMMARY | 2024-06-06 20:18 | XMS_ITS | Continuity of Care Document ---
Author Name [facility]IN [facility] Address Unknown Organization Unknown Address Unknown Procedures FILTER APPLIED:Only known Procedures with Onset Date within the last 5 years Procedure Date Procedure Provider Additional Inform ation Status X-RAY EXAM CHEST 2 VIEWS (69716) Completed EMERGENCY DEPT VISIT LOW MDM (73602) Completed Encounters FILTER APPLIED:Only known Encounters with Admission Date within the last 5 years Encounter Location Admission Discharge Billing Code Configuration Release Manager Wilbur chun Emergency Jared Welsh
[2024-06-06 20:45] LABS: PCR FLU A Negative PCR FLU A (Negative); PCR FLU B Negative PCR FLU B (Negative); PCR RSV Negative PCR RSV (Negative); SARS PCR* Negative SARS-CoV-2 (Negative)
[2024-06-09 14:29] LABS: B. pertussis/parapertus Source Not Provided; Bordetella parapertussis PCR Not Detected; Bordetella pertussis by PCR Not Detected
== END 2024-06-06 20:39 | disposition home or self-care (01) ==
PROVIDERS: Emergency Provider Family Medicine
DX: R05.9 Cough, unspecified (principal)
CPT/HCPCS: 36415; 71046; 87631; 99284

== ENCOUNTER 2024-09-29 23:33 | Emergency (ER) | payer OTHER, SELFPAY ==
--- NOTE | 2024-09-29 23:35 | ED.GENADULT ---
HPI - General Adult General Time Seen by Provider: 23:35 Date Seen: 09/29/24 Chief complaint: Chest Pain Stated complaint: chest pain L side Time Seen by Provider: 09/29/24 23:34 Source: patient, RN notes reviewed and old records reviewed Mode of arrival: ambulatory Limitations: no limitations History of Present Illness HPI narrative: 34-year-old male who comes in today with chest pain. Patient notes left-sided chest pain that started about 6 hours prior to coming the emergency department. Pain is constant, worse with breathing and worse with certain arm movements. Also seems worse lying down. Denies cough, shortness of breath, nausea, vomiting. No known injury. Took some ibuprofen earlier with minimal improvement. Patient does not smoke Related Data Allergies Allergy/AdvReac Type Severity Reaction Status Date / Time Penicillins Allergy Verified 09/29/24 23:43 PFSH PFS Social History Non-prescribed substance use: denies use Exam Narrative: Exam Narrative: General: Well-developed and well-nourished, no acute distress Head: Atraumatic and normocephalic Eyes: Pupils are equal reactive, extraocular motions intact, conjunctiva clear ENT: External nose and ears are normal, posterior pharynx without erythema or exudate Neck: No midline cervical tenderness, full spontaneous range of motion the neck, trachea midline, no adenopathy Heart: Regular rate and rhythm no murmurs or thrills Lungs: Clear to auscultation bilaterally without wheezes or crackles Abdomen: Soft, nontender, nondistended with active bowel sounds Musculoskeletal: No tenderness, deformity, or edema Neurologic: Awake, alert, and oriented x3, no gross focal neurologic deficits, cranial nerves intact as tested Psych: Mood and affect are appropriate Skin: No rashes Const: Vital Signs, click to edit/add: Vital Signs - 24 hr 09/29/24 23:39 Temperature 97.7 F Pulse Rate [Pulse Oximeter] 89 Respiratory Rate 20 Blood Pressure [Ri ght Upper Arm] 124/86 Pulse Oximetry 95 Oxygen Delivery Me thod Room Air Course Course ED Course: Reviewed prior emergency department visit from May 2024 which was for cough treated symptomatically. patient presents today with left-sided chest pain which is been constant for the last 6 hours, worse with lifting or moving arms, worse with breathing. On exam here patient is vitally stable, pain is not reproducible on palpation. Symptoms seem most consistent with pleuritic pain, cannot exclude pericarditis although this little bit less likely, pulmonary embolism considered but low risk by Wells criteria and PERC negative. Labs ordered along with EKG, Toradol, chest x-ray. Reevaluation(s) Time of Reevaluation #1: 00:14 Reevaluation #1: Chest x-ray independently interpreted by me negative for acute findings. EKG independently interpreted by me performed at 12:14 a.m. demonstrates sinus rhythm rate 81, no acute ischemic changes, normal intervals, normal axis, QTC 443, SD 200, no prior for comparison. Time of Reevaluation #2: 01:10 Reevaluation #2: Labs in panel interpreted by me with negative troponin, negative D-dimer, normal CRP, normal basic panel, normal magnesium, normal CBC. Patient is stable for discharge with outpatient follow-up. Will be given a dose of Decadron prior to discharge. Vital Signs Vital signs: Initial Vital Signs Temperature 97.7 F 09/29/24 23:39 Temperature Source Temporal Artery Scan 09/29/24 23:39 Pulse Rate 89 09/29/24 23:39 Pulse Rhythm Regular 09/29/24 23:39 Respiratory Rate 20 09/29/24 23:39 Blood Pressure 124/86 09/29/24 23:39 Blood Pressure Mean 98 09/29/24 23:39 Blood Pressure Position Sitting 09/29/24 23:39 Pulse Oximetry 95 09/29/24 23:39 Oxygen Delivery Method Room Air 09/29/24 23:39 Vital Signs Temperature 97.7 F 09/29/24 23:39 Pulse Rate 89 09/29/24 23:39 Respiratory Rate 20 09/29/24 23:39 Blood Pressure 124/86 09/29/24 23:39 Pulse Oximetry 95 09/29/24 23:39 Oxygen Delivery Method Room Air 09/29/24 23:39 Temperature 97.7 F 09/29/24 23:39 Pulse Rate 89 09/29/24 23:39 Respiratory Rate 20 09/29/24 23:39 Blood Pressure 124/86 09/29/24 23:39 Pulse Oximetry 95 09/29/24 23:39 Oxygen Delivery Method Room Air 09/29/24 23:39 Medications Administered Medications: Discontinued Medications Generic Name Dose Route Start Last Admin Trade Name Ken PRN Reason Stop Dose Admin Ketorolac Tromethamine 15 mg 09/29/24 23:55 09/30/24 00:37 Ketorolac 15 Mg/Ml Inj IVP 09/29/24 23:56 15 mg ONCE ONE Administration Medical Decision Making Lab Data Labs: Lab Results 09/29/24 09/30/24 Range/Units 23:56 00:20 WBC 5.96 (4.50-11.00) K/uL RBC 4.71 (4.30-5.90) m/uL Hgb 14.1 (13.5-17.5) gm/dL Hct 40.4 (37.0-53.0) % MCV 86 (80-100) fL MCH 30 (26-34) pg MCHC 35 (32-36) gm/dL RDW Coeff of Danny 11.6 (11.5-15.5) % Plt Count 308 (140-440) K/uL Neut % (Auto) 53.9 (42.0-72.0) % Lymph % (Auto) 35.9 (20-44) % Dawson % (Auto) 7.4 (0.0-11.0) % Eos % (Auto) 1.7 (0.0-7.0) % Baso % (Auto) 0.3 (0.0-3.0) % Neut # (Auto) 3.21 (1.7-7.0) K/uL Lymph # (Auto) 2.14 (0.90-2.90) K/uL Dawson # (Auto) 0.40 (0.00-0.90) K/UL Eos # (Auto) 0.10 (0.00-0.50) K/uL Baso # (Auto) 0.02 (0.00-0.30) K/uL Abs Immat Gran (auto) 0.05 (0.00-0.30) K/uL Imm/Tot Granulo (auto) 0.8 % D-Dimer Quant (PE/DVT) 0.07 (0.00-0.50) ug/ml Sodium 139 (135-149) mmol/L Potassium 3.9 (3.6-5.1) mmol/L Chloride 103 (96-114) mmol/L Carbon Dioxide 25 (20-32) mmol/L Anion Gap 11 (7-15) mEq/L BUN 22 (5-24) mg/dL Creatinine 1.4 (0.5-1.5) mg/dL Estimated Creat Clear 73.65 Estimated GFR 67 ml/min Glucose 107 (60-115) mg/dL Calcium 8.9 (8.4-10.6) mg/dL Magnesium 2.1 (1.5-2.6) mg/dL C-Reactive Protein 0.6 (0.5-1.0) mg/dL NT-Pro-B Natriuret Pep < 20 pg/mL POC Troponin I 0.00 L (0.01-0.04) ng/ml Discharge Plan Discharge Clinical Impression: Atypical chest pain Patient Disposition: Home, Self-Care Condition: Stable Instructions: Chest Pain (DC) Activity Level: Activity as Tolerated Discharge Diet: Regular Follow Up/Referrals: Provider,Not a Local [Primary Care Provider] - Stand Alone Forms: MyHealth Info Instructions
--- OUTSIDE RECORDS SUMMARY | 2024-09-29 23:35 | XMS_ITS | Clinical Summary ---
Author Organization [employer] [facility] Address [address] [place] [address] Care Team Providers Care Product Development Coordinator Name Role Phone [facility] Primary Care Provider Unavailabl e Allergies Active Allergy Reactions Criticality Noted Date Comments Amoxicillin Rash 07/24/2005 Medications No known medications Active Problems Problem Noted Date Diagnosed Date Eczema of both hands 04/08/2016 Attention deficit disorder without mention of hy peractivity 08/04/2002 ASTHMA, MILD PERSISTENT 07/02/2001 Immunizations Immunization Administration Dates Next Due DTaP 01/08/1995 Hepatitis [...] on file Legal Sex Male 5:20 AM WIRER MAINTENANCE Gender Identity Not on file Sexual Orientation Not on file 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 Not on file Not on file Obstetrics History Last Filed Vital Signs Vital Sign Reading Time Taken Comments Blood Pressure 128/80 07/08/2019 9:36 AM WIRER MAINTENANCE Pulse 72 07/08/2019 9:36 AM WIRER MAINTENANCE Temperature 36.5 C (97.7 F) 08/28/2018 8:28 AM CDT Respiratory Rate 16 07/08/2019 9:36 AM WIRER MAINTENANCE Oxygen Saturation 98% 08/28/2018 8:28 AM CDT Inhaled Oxygen Concentration - - Weight 113.4 kg (250 lb) 07/08/2019 9:36 AM WIRER MAINTENANCE Height 177.8 cm (5' 10) 07/08/2019 9:36 AM WIRER MAINTENANCE Body Mass Index 35.87 07/08/2019 9:36 AM WIRER MAINTENANCE Plan of Treatment Health Maintenance Due Date Last Done Comments HIV for age 15-65 2004 Hepatitis C screening for ag e 18-79 08/20/2007 Depression screening for age 12+ 06/29/2016 06/29/2015, 06/06/2015 BMI (ht and wt on same day) for age 18+ 07/08/2020 07/08/2019, 08/28/2018, 06/06/2015 Tetanus booster 02/18/2022 02/19/2012 COVID-19 vaccine series ( season) 2024 Lipids for age 35-44 2024 01/20/2015 Influenza Vaccine (Season Ended) 2025 02/19/2012 Tdap Completed 02/19/2012 Pneumococcal series for age 6-49 Aged Out No longer eligible b ased on patient's age to complete this topic Procedures Procedure Name Priority Date/Time Associated Diagnosis Comments LIPID PANEL W REFLEX MEASURED LDL Routine 01/20/2015 7:09 AM CDT Screening, lipid from Last 3 Months or Most Recently Relevant to Health Maintenance Results * (ABNORMAL) LIPID PANEL W REFLEX MEASURED LDL (01/20/2015 7:09 AM CDT) CHOLESTEROL,TOTAL 201(H) 100 - 199 mg/dL 01/20/2015 4:01 PM CDT [facility] TRIGLYCERIDES 154(H) <150 mg/dL 01/20/2015 4:01 PM CDT [facility] HDL CHOLESTEROL 36(L) >40 mg/dL 01/20/2015 4:01 PM CDT [facility] NON-HDL CHOLESTEROL 165(H) <145 mg/dl 01/20/2015 4:01 PM T [facility] CHOL/HDL RATIO 5.58(H) <4.50 01/20/2015 4:01 PM T [facility] LDL CHOLESTEROL 134(H) <=130 mg/dL 01/20/2015 4:01 PM T [facility] PATIENT STATUS FASTING 01/20/2015 4:01 PM T [facility] Blood specimen (specimen) BLOOD SPECIMEN / Unknown Venipuncture / Unknown 01/20/2015 7:09 AM CDT 01/20/2015 7:09 AM CDT us Keisha Barragan MD CHEMISTRY Final R esult [facility] [address] [place] [address], from Last 3 Months or Most Recently Relevant to Health Maintenance Insurance [place] [employer] Care Teams Product Development Coordinator Relationship Specialty Start Date End Date Yoel Dickerson PCP - General 09/01/17
--- OUTSIDE RECORDS SUMMARY | 2024-09-29 23:35 | XMS_ITS | Encounter Summary ---
Author Name [facility] [place] [facility] [place] [facility] [place] Address [address] [place] [address] Care Team Providers Care Airline Mechanic Name Role Phone LIN DU Primary Care [...] Owen's Name Patient's Relationship to Policy Owen [employer] POINT OF SERVICE PENSK E TRUCK LEASI NG Apr 01, 2024 [id number] [phone] YARY DOSS PATIENT [place] ([id number]) PRESCRIPT ION PENSK E TRUCK LEASI NG Apr 01, 2024 [id number] [phone] YARY DOSS PATIENT Selected Encounter This section includes the information on record at [place] for the Encounter. Date/Time Encounter Type Encounter Description Reason Pro vider Source IHE Encounter Template Text not used by [place]
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
--- OUTSIDE RECORDS SUMMARY | 2024-09-29 23:35 | XMS_ITS | Continuity of Care Document ---
Author Name DOD-MA Organization [facility]-MA Care Team Providers Care Pre K Teacher Name Role Phone DOD-MA Unavailable Unavailable Problems Combined list of problems from Department of Defense and Veterans Affairs facilities. It does not include entries that were removed or entered in error. Problem Status Onset Date Problem Type Date of Resolution Comments Source Exposure to potentially hazardous substance (SCT [id number]) Active 08/01/19 24 Condition Aug 01, 2023 Entered By: WILDER WEBB [facility]: [facility] FELA Documentation Initiative [facility] Abdominal Pain (SCT 35207329) Active Condition [facility] Asthma (SCT 669443690) Active Condition [facility] Back pain Active Condition [facility] Chronic post-traumatic stress disorder following combat Active Condition [place] [facility] Contact with and (Suspected) Exposure to Air Pollution Active Condition [facility] Contact with and (suspected) exposure to other hazardous substances Active Condition [facility] Contact with and (Suspected) Exposure to other Hazardous, Chiefly Nonmedicinal, Active Condition [facility] Contact with and (Suspected) Exposure to other Hazards in the Physical Environme Active Condition [facility] Eczema (SCT 69936728) Active Condition [facility] Low Back Pain (SCT 695538178) Active Condition [facility] Obesity Active Condition [facility] Sleep apnea Active Condition [facility] Steatosis of liver Active Condition [facility] LUMBAGO Active Condition DoD NONALLOPATHIC LESIONS THORACIC Active Condition DoD SACROILIITIS Active Condition DoD 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 DoD FACET SYNDROME LUMBAR Active Condition DoD lower back pain Active Condition DoD foot pain (soft tissue) Active Condition DoD skin: a rash [as Sx] Active Condition DoD OVERWEIGHT Active Condition DoD PSORIASIS Active Condition DoD visit for: routine eye [...] Observation For Suspected Condition Inactive Condition DoD ANXIETY DISORDER NOS Active Condition DoD GENERALIZED ANXIETY DISORDER Active Condition DoD Patient Education Dietary Changing Eating Habits Active Condition DoD Anticipatory Guidance: Inadequate Physical Activity Active Condition DoD Other Physical Therapy Active Condition [facility] Dietary Counseling Pertaining To Obesity Active Condition DoD OBESITY Active Condition DoD Body Mass Index Active Condition DoD PLANTAR FASCIITIS LEFT Inactive Condition DoD PATELLOFEMORAL SYNDROME Active Condition DoD ACUTE BRONCHITIS Inactive Condition DoD cough Inactive Condition DoD SINUSITIS ACUTE Active Condition DoD REFRACTIVE ERROR Active Condition DoD visit for: services physical Active Condition DoD visit for: ears / hearing exam Active Condition [facility] ASSESSMENT OF PATIENT CONDITION WORK-RELATED Active Condition DoD visit for: screening exam pulmonary tuberculosis Active Condition DoD Diagnosis: ICD-10-CM G47.30 Sleep apnea, unspecified Active Diagnosis [facility] Diagnosis: ICD-10-CM Z77.9 Oth contact w and (suspected) exposures hazardous to health Active Diagnosis [facility] Diagnosis: ICD-10-CM Z77.110 Contact with and (suspected) exposure to air pollution Active Diagnosis [facility] Medications Combined list of outpatient medications from Department of [facility] and [facility] facilities.Medications provided include 1) outpatient medications from the last 15 months, and 2) patient-reported medications. Medication Details Route Status Patient Instructions Prescription Expires Prescription Number Last Dispense Date Ordering Provider Order Date Order Qty Source CELECOXIB 200MG CAP TAKE ONE CAPSULE BY MOUTH EVERY DAY NEEDED FOR PAIN TAKE WITH FOOD ORAL ACTIVE 01/13/2025 [id number] 4 Sarah DU 2023 90 [place] 750MG TAB TAKE ONE TABLET BY MOUTH THREE TIMES A DAY NEEDED FOR MUSCLE PAIN ORAL ACTIVE 01/13/2025 [id number] 4 Sarah DU 2023 90 [facility] Allergies, Adverse Reactions, Alerts Combined list of allergies from Department of [facility] and [facility] facilities. It does not include entries that were removed or entered in error. Substance Category Reaction Severity Reaction type Status Date Reported Comments Source AMOXICILLIN Propensity to adverse reactions to drug (finding) Finding of [facility]AMOXICILLIN TRIHYDRATE) Drug allergy (disorder) Vomiting active 0 [place] Immunizations Combined list of available immunizations from the Department of Defense and Veterans Affairs facilities. 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 (CSL) complet ed Influenza , seasonal, injectabl e DoD anthrax vaccine 3 2010 [id number] [facility] [place] ([facility]) complet ed anthrax vaccine DoD vaccinia (smallpox) vaccine 1 2009 UNK 75 Unknown (UNK) Not Given vaccinia (smallpox ) vaccine DoD anthrax vaccine 2 2009 [id number] [facility] ([facility]) complet ed anthrax vaccine DoD influenza virus vaccine, live, attenuated, for intranasal use 1 2009 [id number] DestinationRX, Inc. (MED) complet ed influenza virus vaccine, live, attenuate d, for intranasa l use DoD anthrax vaccine 1 2009 [id number] [employer] [place] ([facility]) complet ed anthrax vaccine DoD typhoid Vi capsular polysaccharid e vaccine 1 2009 [id number] Sanofi Pasteur (PMC) complet ed typhoid Vi capsular polysacch aride vaccine DoD hepatitis A and hepatitis B vaccine 3 2009 [id number] 104 SmithKline (SKB) complet ed hepatitis A and hepatitis B vaccine DoD Novel influenza-H1N 1-09, injectable 1 2009 [id number] 127 Novartis Retrevotica CartiCure Danny. (NOV) complet ed Novel influenza -F9L3-06, injectabl e DoD influenza virus vaccine, live, attenuated, for intranasal use 1 2008 [id number] 111 MedIMagiq, Inc. (MED) complet ed influenza virus vaccine, [...] diphtheria toxoid conjugate vaccine (MCV4P) 1 2008 [id number] Sanofi Pasteur (PMC) complet ed meningoco ccal polysacch aride (groups A, C, Y and W-135) diphtheri a toxoid conjugate vaccine (MCV4P) DoD tetanus toxoid, reduced diphtheria toxoid, and acellular pertu is vaccine, adsorbed 1 2008 [id number] 115 SmithKline (SKB) complet ed tetanus [...] October 10, 2023 10:28 AM Reporting Lab: [facility] [address] Performing Lab: [facility] [address] [facility] COMPREHENS MATEO METABOLIC PANEL+MG [...] October 10, 2023 10:28 AM Reporting Lab: [facility] [address] Performing Lab: [facility] [address] [facility] COMPREHENS MATEO METABOLIC PANEL+MG [...] October 10, 2023 10:28 AM Reporting Lab: [facility] [address] Performing Lab: [facility] [address] [facility] COMPREHENS MATEO METABOLIC PANEL+MG [...] October 10, 2023 10:28 AM Reporting Lab: [facility] [address] Performing Lab: [facility] [address] [facility] COMPREHENS MATEO METABOLIC PANEL+MG [...] October 10, 2023 10:28 AM Reporting Lab: [facility] [address] Performing Lab: [facility] [address] [facility] COMPREHENS MATEO METABOLIC PANEL+MG [...] October 10, 2023 10:28 AM Reporting Lab: [facility] [address] Performing Lab: [facility] [address] [facility] COMPREHENS MATEO METABOLIC PANEL+MG [...] October 10, 2023 10:28 AM Reporting Lab: [facility] [address] Performing Lab: [facility] [address] [facility] COMPREHENS MATEO METABOLIC PANEL+MG [...] October 10, 2023 10:28 AM Reporting Lab: [facility] [address] Performing Lab: [facility] [address] [facility] COMPREHENS MATEO METABOLIC PANEL+MG [...] October 10, 2023 10:28 AM Reporting Lab: [facility] [address] Performing Lab: [facility] [address] [facility] COMPREHENS MATEO METABOLIC PANEL+MG [...] October 10, 2023 10:28 AM Reporting Lab: [facility] [address] Performing Lab: [facility] [address] [facility] COMPREHENS MATEO METABOLIC PANEL+MG [...] October 10, 2023 10:28 AM Reporting Lab: [facility] [address] Performing Lab: [facility] [address] [facility] COMPREHENS MATEO METABOLIC PANEL+MG [...] October 10, 2023 10:28 AM Reporting Lab: [facility] [address] Performing Lab: [facility] [address] [facility] COMPREHENS MATEO METABOLIC PANEL+MG [...] October 10, 2023 10:28 AM Reporting Lab: [facility] [address] Performing Lab: [facility] [address] [facility] COMPREHENS MATEO METABOLIC PANEL+MG [...] October 10, 2023 10:28 AM Reporting Lab: [facility] [address] Performing Lab: [facility] [address] [facility] COMPREHENS MATEO METABOLIC PANEL+MG [...] October 10, 2023 10:28 AM Reporting Lab: [facility] [address] Performing Lab: [facility] [address] [facility] COMPREHENS MATEO METABOLIC PANEL+MG [...] October 10, 2023 10:28 AM Reporting Lab: [facility] [address] Performing Lab: [facility] [address] [facility] COMPREHENS MATEO METABOLIC PANEL+MG [...] October 10, 2023 10:28 AM Reporting Lab: [facility] [address] Performing Lab: [facility] [address] [facility] CBC LEUKOCYTES [#/VOLUME] IN BLOOD BY AUTOMATED COUNT 6.89 10*3/u L 4.0 - 11.0 10/09 Specimen Type: BLOOD No comment entered. Ordering Provider: MELISSA DU Report Released Date/Time: October 10, 2023 10:28 AM Reporting Lab: [facility] [address] Performing Lab: [facility] [address] [facility] CBC ERYTHROCYTE S [#/VOLUME] IN BLOOD BY AUTOMATED COUNT 4.91 10*6/u L 4.6 - 6.2 10/09 Specimen Type: BLOOD No comment entered. Ordering Provider: MELISSA DU Report Released Date/Time: October 10, 2023 10:28 AM Reporting Lab: [facility] [address] Performing Lab: [facility] [address] [facility] CBC HEMOGLOBIN [MASS/VOLUM E] IN BLOOD 14.9 g/dL 13.5 - 17.9 10/09 Specimen Type: BLOOD No comment entered. Ordering Provider: MELISSA DU Report Released Date/Time: October 10, 2023 10:28 AM Reporting Lab: [facility] [address] Performing Lab: [facility] [address] [facility] CBC HEMATOCRIT [VOLUME FRACTION] OF BLOOD BY AUTOMATED COUNT 42.0 41 - 54 10/09 Specimen Type: BLOOD No comment entered. Ordering Provider: MELISSA DU Report Released Date/Time: October 10, 2023 10:28 AM Reporting Lab: [facility] [address] Performing Lab: [facility] [address] [facility] CBC MCV [ENTITIC VOLUME] BY AUTOMATED COUNT 85.5 fL 80 - 100 10/09 Specimen Type: BLOOD No comment entered. Ordering Provider: MELISSA DU Report Released Date/Time: October 10, 2023 10:28 AM Reporting Lab: [facility] [address] Performing Lab: [facility] [address] [facility] CBC MCH [ENTITIC MASS] BY AUTOMATED COUNT 30.3 pg 27 - 33 10/09 Specimen Type: BLOOD No comment entered. Ordering Provider: MELISSA DU Report Released Date/Time: October 10, 2023 10:28 AM Reporting Lab: [facility] [address] Performing Lab: [facility] [address] [facility] CBC MCHC [MASS/VOLUM E] BY AUTOMATED COUNT 35.5 g/dL 32.0 - 37.5 10/09 Specimen Type: BLOOD No comment entered. Ordering Provider: MELISSA DU Report Released Date/Time: October 10, 2023 10:28 AM Reporting Lab: [facility] [address] Performing Lab: [facility] [address] [facility] CBC PLATELETS [#/VOLUME] IN BLOOD BY AUTOMATED COUNT 336 10*3/u L 150 - 400 10/09 Specimen Type: BLOOD No comment entered. Ordering Provider: MELISSA DU Report Released Date/Time: October 10, 2023 10:28 AM Reporting Lab: [facility] [address] Performing Lab: [facility] [address] [facility] CBC PLATELET MEAN VOLUME [ENTITIC VOLUME] IN BLOOD BY AUTOMATED COUNT 10.0 fL 7.4 - 10.4 10/09 Specimen Type: BLOOD No comment entered. Ordering Provider: MELISSA DU Report Released Date/Time: October 10, 2023 10:28 AM Reporting Lab: [facility] [address] Performing Lab: [facility] [address] [facility] CBC ERYTHROCYTE DISTRIBUTIO N WIDTH [RATIO] BY AUTOMATED COUNT 11.9 11.5 - 14.5 10/09 Specimen Type: BLOOD No comment entered. Ordering Provider: MELISSA DU Report Released Date/Time: October 10, 2023 10:28 AM Reporting Lab: [facility] [address] Performing Lab: [facility] [address] [facility] HEMOGLOBIN A1C HEMOGLOBIN A1C/HEMOGLO [...] October 10, 2023 10:28 AM Reporting Lab: [facility] [address] Performing Lab: [facility] [address] [facility] LIPID PANEL,NON- FASTING CHOLESTEROL [...] October 10, 2023 10:28 AM Reporting Lab: [facility] [address] Performing Lab: [facility] [address] [facility] LIPID PANEL,NON- FASTING CHOLESTEROL [...] October 10, 2023 10:28 AM Reporting Lab: [facility] [address] Performing Lab: [facility] [address] [facility] LIPID PANEL,NON- FASTING CHOLESTEROL [...] October 10, 2023 10:28 AM Reporting Lab: [facility] [address] Performing Lab: [facility] [address] [facility] LIPID PANEL,NON- FASTING CHOLESTEROL [...] October 10, 2023 10:28 AM Reporting Lab: [facility] [address] Performing Lab: [facility] [address] ALIA B[facility] LIPID PANEL,NON- FASTING CHOLESTEROL NON [...] October 10, 2023 10:28 AM Reporting Lab: [facility] [address] Performing Lab: [facility] [address] ALIA B[facility] LIPID PANEL,NON- FASTING TRIGLYCERID E [...] October 10, 2023 10:28 AM Reporting Lab: [facility] [address] Performing Lab: [facility] [address] ALIA BURGOS TSH W/REFLEX TO FREE T4 [...] October 10, 2023 10:28 AM Reporting Lab: [facility] [address] Performing Lab: [facility] [address] ALIA [facility] Vital Signs Combined list of inpatient and outpatient Vital Signs from Department of Defense and Veterans Affairs, ranging from 12 months to all on record, depending upon the facility. Vital Sign Value Date Comments Source SYSTOLIC BLOOD PRESSURE 124 10/10/2023 10:06:35 [facility] DIASTOLIC BLOOD PRESSURE 85 10/10/2023 10:06:35 [facility] PULSE OXIMETRY 96 10/10/2023 10:06:35 [facility] WEIGHT 280 10/10/2023 10:06:35 [facility] BMI 41 kg/m2 10/10/2023 10:06:35 [facility] PAIN 7 10/10/2023 10:06:35 [facility] TEMPERATURE 97.6 10/10/2023 10:06:35 [facility] PULSE 77 10/10/2023 10:06:35 [facility] RESPIRATION 14 10/10/2023 10:06:35 [facility] Encounters Combined list of: 1) Encounters from Department of Veterans Affairs facilities going backup to the last 18 months, not all VA inpatient encounters are included; 2) Encounters from the Department of Defense facilities going backup to 280 months. Location Location Details Encounter Type Encounter Number Reason For Visit Attending Provider ADM Date DC Date Status Disposition Source [facility] Post Immunizat ion) OUTPATIENT [id number] IET PPD JESUS MILNER 09/14 Released w/o Limitations [facility] Post Immuniz ation) [facility](IEP Hearing Conservat ion) OUTPATIENT [id number] JE THOMPSON 09/14 Released w/o Limitations [facility](I EP Hearing Conserv ation) [facility](PES Optometry -Trainee) OUTPATIENT [id number] ROSCOE DOWNS 09/19 Released w/o Limitations [facility](P ES Optomet ry-Delfino nee) [facility] Immediate Care Clinic) OUTPATIENT [id number] 18 y/o M SIT c/o Fever/S inLASHAY Quintero 11/05 Sick at Home/Quarter s [facility] Immedia te Care Clinic) [facility] Ambulator y) OUTPATIENT [id number] VASQUEZ PAT *PA* 11/06 Sick at Home/Quarter s [facility] Ambulat ory) [facility] General Medicine) OUTPATIENT [id number] foot pain JESSICA ORELLANA E 06/07 Released with Work/Duty Limitations [facility] General Medicin e) [facility](Clinic al Dietetics ) OUTPATIENT [id number] [employer] ESTELA GR 07/18 Released w/o Limitations [facility](Clin ical Dieteti cs) [facility](Physic al Therapy) OUTPATIENT [id number] 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 TOLU PUENTES E 07/25 Released w/o Limitations [facility](Phys ical Therapy ) [facility](Clinic al Dietetics ) OUTPATIENT [id number] f/uArmy MOVE, session 9 keep it going RACHEL BEASLEY 08/01 Released w/o Limitations [facility](Clin ical Dieteti cs) [facility](Clinic al Dietetics ) OUTPATIENT [id number] f/u [employer] Session 3 RACHEL BEASLEY 08/15 Released w/o Limitations [facility](Clin ical Dieteti cs) [facility](Physic al Therapy) OUTPATIENT [id number] [employer] MOVES CLASS TOLU PUENTES E 08/29 Released w/o Limitations [facility](Phys ical Therapy ) [facility](Clinic al Dietetics ) OUTPATIENT [id number] f/u [employer], Session 5 ESTELA GR HALLE 09/07 Released w/o Limitations [facility](Clin ical Dieteti cs) [facility](Clinic al Dietetics ) OUTPATIENT [id number] f/u [employer], Session 7, tip the balance RACHEL BEASLEY 09/19 Released w/o Limitations [facility](Clin ical Dieteti cs) [facility]) OUTPATIENT [id number] DEBRA RAYA 12/05 Immediate Referral [facility]) [facility] General Medicine) OUTPATIENT [id number] lesion on shaft of penis JESSICA ORELLANA Kuldeep 12/06 Released w/o Limitations [facility] General Medicin e) [facility](Hearin g Conservat ion 2) OUTPATIENT [id number] Hearing Exam ALKA ESPINOSA Samuel 12/26 Released w/o Limitations [facility](Hear ing Conserv ation 2) [facility]([place] [address]) OUTPATIENT [id number] asthma, not control led LUISA DOTSON 03/20 Released w/o Limitations [facility]([place] [address]) Theater Facility OUTPATIENT [id number] 07/18 Released w/o Limitations Theater Facilit y Theater Facility OUTPATIENT [id number] 08/13 Released with Work/Duty Limitations Theater Facilit y [facility](Deploy ment) OUTPATIENT [id number] Luis Enrique FLORES ABS,VIS MABEL SOLITARIO 03/22 Released w/o Limitations [facility](Depl oyment) [facility]) OUTPATIENT [id number] LISANDRA BROWN 05/09 Released w/o Limitations [facility]) [facility] 2) OUTPATIENT [id number] rash on hands DAVID FLORES 06/04 Released w/o Limitations [facility] 2) [facility] 2) TELE CONSULT [id number] Over weight program , nutrito n DAVID Adams 06/28 [facility] 2) [facility](Clinic al Dietetics ) OUTPATIENT [id number] [employer] ESTELA GR 07/10 Released w/o Limitations [facility](Clin ical Dieteti cs) [facility] 2) OUTPATIENT [id number] rash on face MARK, DAVID T. 07/19 Released w/o Limitations [facility] 2) [facility] 2) OUTPATIENT [id number] rash on face MARK, DAVID T. 07/23 Released w/o Limitations [facility] 2) [facility] 2) OUTPATIENT [id number] f/u eye infecti on MARK, DAVID T. 07/28 Released w/o Limitations [facility] 2) [facility] 2) OUTPATIENT [id number] Follow up eye infecti on MARK, DAVID T. 08/01 Released w/o Limitations [facility] 2) [facility](Clinic al Dietetics ) OUTPATIENT [id number] F/U [employer], Module 2 JULISA MCKEON 08/07 Released w/o Limitations [facility](Clin ical Dieteti cs) [facility] 2) OUTPATIENT [id number] Browne Splints , LBP, Plantar pain MARK, DAVID T. 08/11 Released w/o Limitations [facility] 2) [facility](Hearin g Conservat ion) OUTPATIENT [id number] Hearing Exam FRANCISCABEKAHWilbur Baker 08/13 Released w/o Limitations [facility](Hear ing Conserv ation) [facility](Deploy ment) OUTPATIENT [id number] PDHRA/V EVENS HANSON 08/13 Released w/o Limitations [facility](Depl oyment) [facility] 2) OUTPATIENT [id number] Acute LBP MARK, DAVID T. 08/25 Released w/o Limitations [facility]([address] 2) NOAM [facility]([address] WTT 3) OUTPATIENT [id number] Chapter 18 CHELO RAI L 09/30 Released w/o Limitations [facility]([address] WTT 3) [facility] Opto) OUTPATIENT [id number] chapter physica l LOLA KELLY T 10/01 Released w/o Limitations [facility] Opto) [facility]([address] 2) OUTPATIENT [id number] phase 2, chapter MARK, DAVID T. 10/14 Released w/o Limitations [facility]([address] 2) NO[facility]) OUTPATIENT [id number] [place] 10/22 Released w/o Limitations [facility](Depl oyment) [facility] Chiro) OUTPATIENT [id number] lower back pain JOSE MANUEL, CAITIE M 10/28 Released w/o Limitations [facility] Chiro) [facility] Chiro) OUTPATIENT [id number] lbp JOSE MANUEL, CAITIE M 11/17 Released w/o Limitations [facility] Chiro) [facility] Chiro) OUTPATIENT [id number] lbp JOSE MANUEL, CAITIE M 11/21 Released w/o Limitations [facility] Chiro) [facility]([address] 2) OUTPATIENT [id number] lower back pain MARK, DAVID T. 11/21 Released w/o Limitations [facility]([address] 2) [facility] Phy Th) OUTPATIENT [id number] lumbar PRETTYSANDRO 12/03 Released w/o Limitations [facility] Phy Th) [facility] Chiro) OUTPATIENT [id number] lbp LORNA RICHARDKuldeep Gordon 12/07 Released w/o Limitations NOAM Olivo([facility] [place]) [place] [facility] Outpatient Encounter [id number] SIDRA SOUZA 04/29 [place] [facility] [place] [facility] Outpatient Encounter [id number] SIDRA SOUZA 04/29 [place] [facility] [place] [facility] Outpatient Encounter [id number] MARYA KELLER 04/29 [place] [facility] [place] [facility] Outpatient Encounter [id number] MARIBELL COATES 05/02 [place] [facility] [place] [facility] Outpatient Encounter [id number] 08/10 [place] [facility] [place] [facility] Outpatient Encounter [id number] 08/20 [place] [facility] [place] [facility] Outpatient Encounter [id number] CHETNA MERCEDES 09/04 [place] [facility] [place] [facility] Outpatient Encounter [id number] Diagnos is: ICD-10- CM Z77.110 Contact with and (suspec silvano) exposur e to air polluti on FLACA INFANTE Naveed 09/07 [place] [facility] [place] [facility] Outpatient Encounter [id number] 09/16 [place] [facility] [place] [facility] Outpatient Encounter [id number] 09/22 [place] [facility] [place] [facility] Outpatient Encounter [id number] 10/01 [place] [facility] [place] [facility] Outpatient Encounter [id number] AMOS DU NNDEEJAY M 10/09 [place] [facility] OFFICE O/P EST HI 40 MIN [id number] Diagnos is: ICD-10- CM G47.30 Sleep apnea, unspeci fied AMOS DU NNIE M 10/09 [facility] [place] [facility] HEMOGLOBIN [id number] Diagnos is: ICD-10- CM Z77.9 Oth contact w and (suspec silvano) exposur es hazardo [facility] to health WRZOS,JHON SOARES 10/16 [place] [facility] [place] [facility] Outpatient Encounter [id number] 10/16 [place] [facility] Outpatient Encounter [id number] 10/27 [facility] [place] [facility] Outpatient Encounter [id number] SIDRA SOUZA 12/28 [place] [facility] [place] [facility] Outpatient Encounter [id number] SIDRA SOUZA 12/28 [place] [facility] [place] [facility] Outpatient Encounter [id number] BAIRON MCDONNELL 01/07 [place] [facility] [place] [facility] Outpatient Encounter [id number] SIDRA SOUZA 01/11 [place] [facility] [place] [facility] Outpatient Encounter [id number] SIDRA SOUZA 01/11 [place] [facility] [place] [facility] Outpatient Encounter [id number] 01/11 [place] [facility] [place] [facility] Outpatient Encounter [id number] SIDRA SOUZA 02/09 [place] [facility] [place] [facility] Outpatient Encounter [id number] SIDRA SOUZA 02/09 [place] [facility] [place] [facility] Outpatient Encounter [id number] 02/10 [place] [facility] [place] [facility] Outpatient Encounter [id number] 02/18 [place] [facility] [place] [facility] UNLISTED PULMONARY SVC/PX [id number] Diagnos is: ICD-10- CM G47.30 Sleep apnea, unspeci fied AZAM HANNA 02/23 [place] [facility] [place] [facility] Outpatient Encounter [id number] 02/26 [place] [facility] [place] [facility] Outpatient Encounter [id number] 03/01 [place] [facility] [place] [facility] Outpatient Encounter [id number] BAIRON MCDONNELL S 03/25 [facility] [place] [facility] Outpatient Encounter [id number] BAIRON MCDONNELL ICA S 03/25 [facility] [place] [facility] Outpatient Encounter [id number] Luis Enrique LOWERY 06/07 [facility] Procedures Combined list of: 1) Procedures from Department of Veterans Affairs facilities going back up to thelast 18 months, not all [place] non-surgical procedures are included; 2) All procedures from the Department of Defense facilities. Procedure Procedure Type Code Date Perfomer Comments Sourc e Chiropractic Manip Treatmt (CMT) Spinal One To Two Regions Chiropractic Manip Treatmt (CMT) Spinal One To Two Regions 23099 2 CAITIE RICHARD PT A e ment Kinetic Training PT Assessment Kinetic Training 01799 2 SANDRO PRETTY Physical Medicine Physical Therapy Evaluation Physical Medicine Physical Therapy Evaluation 57761 2 SANDRO PRETTY Chiropractic Manip Treatmt (CMT) Spinal Three To Four Region Chiropractic Manip Treatmt (CMT) Spinal Three To Four Region 97357 2 JOSE MANUEL CAITIE M [facility] Chiropractic Manip Treatmt (CMT) Spinal One To Two Regions Chiropractic Manip Treatmt (CMT) Spinal One To Two Regions 72140 2 JOSE MANUEL CAITIE [facility] Chiropractic Manip Treatmt (CMT) Spinal One To Two Regions Chiropractic Manip Treatmt (CMT) Spinal One To Two Regions 02192 2 JOSE MANUEL CAITIE [facility] Screening Test Of Visual Acuity, Quantitative, Bilateral Screening Test Of Visual Acuity, Quantitative, Bilateral 28767 2 LOLA KELLY [facility] Psychiatric Evaluation Comprehensive Examination Psychiatric Evaluation Comprehensive Examination 32067 2 TOÑITO BERNARD [facility] Audiogram (Screening) Audiogram (Screening) 27323 2 ALKA ESPINOSA [facility] Audiometry Group Testing Audiometry Group Testing 28575 2 ALKA ESPINOSA Screening Test Of Visual Acuity, Quantitative, Bilateral Screening Test Of Visual Acuity, Quantitative, Bilateral 57039 2 ACOSTAROMARIO Young [facility] Medical Nutrition Therapy Group (2 or More Individual(s)) Medical Nutrition Therapy Group (2 or More Individual(s)) 17774 2 ESTELA GR [facility] Social Work Individual Outpatient Counseling 45-50 Minutes Social Work Individual Outpatient Counseling 45-50 Minutes 52403 2 SOLA PATEL [facility] Psychiatric Evaluation Comprehensive Examination Psychiatric Evaluation Comprehensive Examination 73814 2 SOLA PATEL [facility] Medical Nutrition Therapy Group (2 or More Individual(s)) Medical Nutrition Therapy Group (2 or More Individual(s)) 61097 2 GAMALIEL ALLEN [facility] Venipuncture Venipuncture 05223 1 ACOSTAROMARIO Young [facility] Screening Test Of Visual Acuity, Quantitative, Bilateral Screening Test Of Visual Acuity, Quantitative, Bilateral 83374 1 ACOSTAROMARIO [facility] Audiogram (Screening) Audiogram (Screening) 79389 0 ALKA ESPINOSA [facility] Audiometry Group Testing Audiometry Group Testing 00048 0 ALKA ESPINOSA [facility] Ear Protector Attenuation Measurements Ear Protector Attenuation Measurements 40787 0 ALKA ESPINOSA DoD Install Peripheral Transcutaneous Neurostimulator Install Peripheral Transcutaneous Neurostimulator 92467 0 AJ CROSS [facility] Psychiatric Evaluation Comprehensive Examination Psychiatric Evaluation Comprehensive Examination 02878 0 JATIN PORTER DoD Install Peripheral Transcutaneous Neurostimulator Install Peripheral Transcutaneous Neurostimulator 59092 0 CROSS [facility] DoD Psychiat Therapy Indiv Appr 45-50 Min W/ Med Eval Managemt Psychiat Therapy Indiv Appr 45-50 Min W/ Med Eval Managemt 26499 0 CARLOS TIJERINA DoD Install Peripheral Transcutaneous Neurostimulator Install Peripheral Transcutaneous Neurostimulator 67163 0 CROSSAJ DoD Install Peripheral Transcutaneous Neurostimulator Install Peripheral Transcutaneous Neurostimulator 94565 0 [facility] DoD Install Peripheral Transcutaneous Neurostimulator Install Peripheral Transcutaneous Neurostimulator 62231 0 DEAN LYN [facility] Psychiatric Evaluation Comprehensive Examination Psychiatric Evaluation Comprehensive Examination 94904 0 CARLOTA ECHOLS [facility] Medical Nutrition Therapy Group (2 or More Individual(s)) Medical Nutrition Therapy Group (2 or More Individual(s)) 36957 0 RACHEL BEASLEY DoD Weight management cla es, non-physician provider, per se ion 0 RACHEL BEASLEY DoD Medical Nutrition Therapy Group (2 or More Individual(s)) Medical Nutrition Therapy Group (2 or More Individual(s)) 59337 0 ESTELA GR DoD Weight management cla es, non-physician provider, per se ion 0 ESTELA GR DoD Patient Counseling Medical Management Five To Eight Patients Patient Counseling Medical Management Five To Eight Patients 15606 0 TOLU BOLANOS DoD Medical Nutrition Therapy Group (2 or More Individual(s)) Medical Nutrition Therapy Group (2 or More Individual(s)) 71551 0 RACHEL BEASLEY DoD Weight management cla es, non-physician provider, per se ion 0 RACHEL BEASLEY [facility] Clinical Social Work Counseling Group Clinical Social Work Counseling Group 06322 0 BRENDA GOMEZ [facility] Medical Nutrition Therapy Group (2 or More Individual(s)) Medical Nutrition Therapy Group (2 or More Individual(s)) 38406 0 RACHEL BEASLEY [facility] Weight management cla es, non-physician provider, per se ion 0 RACHEL BEASLEY [facility] Patient Counseling Medical Management Five To Eight Patients Patient Counseling Medical Management Five To Eight Patients 18575 0 TOLU BOLANOS [facility] Nutrition cla es, non-physician provider, per se ion 0 ESTELA GR [facility] Medical Nutrition Therapy Group (2 or More Individual(s)) Medical Nutrition Therapy Group (2 or More Individual(s)) 59739 0 ESTELA GR [facility] Visual Function Screening Visual Function Screening 45103 9 ROSCOE DOWNS [facility] Ear Protector Attenuation Measurements Ear Protector Attenuation Measurements 37175 9 JE THOMPSON [facility] Threshold Audiogram (Pure Tone) Threshold Audiogram (Pure Tone) 90152 9 JE THOMPSON Audiometry Group Testing Audiometry Group Testing 92854 9 JE THOMPSON [facility] -Supervised Group Educational Services 9 JE THOMPSON Special Services Analysis Of Computerized Data Special Services Analysis Of Computerized Data 55233 9 JE THOMPSON Ear mold/insert, not disposable, any type 9 JE THOMPSON [facility] Immunization Administration One Vaccine Immunization Administration One Vaccine 83245 9 JAXON DARBY [facility] Social History Combined list of available smoking, tobacco, and other social history from Department of Defense and Veterans Affairs facilities. Social History Type Response Date Comment [facility] e Tobacco smoking status NHIS VA-TOBACCO NEVER USED 10/10/19 [facility] History of tobacco use VA-TOBACCO NEVER USED 09/24/2022 [facility] History of tobacco use VA-TOBACCO NEVER USED 11/22/2021 [facility] History of tobacco use MA-TOBACCO FORMER USER 11/07/2020 [facility] This section is an empty social history section. [facility] Plan of Care List of future care activities from Department of Veterans Affairs facilities. Additional future care activities may be listed in the Assessment and Plan section. Date/Time Care Activity Care Activity Detail Facili ty 11/05/2024 AMBULATORY - MEDICINE AMB[facility]ATORY [place] MEDICI [place] [facility]
--- OUTSIDE RECORDS SUMMARY | 2024-09-29 23:35 | XMS_ITS | Encounter Summary ---
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 Date/Time Encounter Type Encounter Description Reason Pro vider Source Oct 28, 2023 09:34 AM Outpatient Encounter GENERAL INTERNAL MEDICINE IHE Encounter Template Text not used by [facility] Plan of Treatment: Future Appointments (+ 6 months) and Future Tests (+/- 45 days) The Plan of Treatment section includes future care activities for the patient from all VA treatmentfacilities. This section includes future appointments and future orders which are active, pending or scheduled. Future Appointments This section includes appointments that were scheduled to occur 6 months from the date of the Encounter, up to a maximum of 20 appointments. The data comes from all [place] treatment facilities. Appointment Date/Time Appointment Type Appointme nt Facility Name Feb 24, 2024 01:00 PM AMBULATORY - MEDICINE [facility] Lab Results: +/- 30 days of the encounter This section includes the Chemistry and Hematology Lab Results on record with [place] for the patient. Radiology Reports and Pathology [...] October 10, 2023 10:28 AM Reporting Lab: [facility] [address] Performing Lab: [facility] [address] CREATININE 1.2 mg/dL 0.7-1.2 UREA NITROGEN 21 [...] October 10, 2023 10:28 AM Reporting Lab: [facility] [address] Performing Lab: [facility] [address] WBC 6.89 10*3/uL 4.0-11.0 RBC 4.91 10*6/uL 4.6-6.2 HGB 14.9 g/dL 13.5-17.9 HCT 42.0 41-54 MCV 85.5 fL 80-100 MCH 30.3 pg 27-33 MCHC 35.5 g/dL 32.0-37.5 PLT 336 10*3/uL 150-400 MPV 10.0 fL 7.4-10.4 RDW 11.9 11.5-14.5 October 10, 2023 10:44 AM [facility] HEMOGLOBIN A1C BLOOD Specimen Type: BLOOD Comment: [...] October 10, 2023 10:28 AM Reporting Lab: [facility] [address] Performing Lab: [facility] [address] HEMOGLOBIN A1C 5.4 4.0-6.0 October 10, 2023 10:44 AM [facility]IA ESP[facility] LIPID PANEL,NON-FASTING PLASMA Specime n Type: PLASMA Comment: Elevated triglyceride result from a non-fasting specimen should be interpreted with caution. A fasting panel is recommended for accurate triglycerides when trigs are >200 from a non-fasting specimen. Ordering Provider: LIN DU Report Released Date/Time: October 10, 2023 10:28 AM Reporting Lab: [facility] [address] Performing Lab: [facility] [address] CHOLESTEROL 212 mg/dL H <199 .HDL 36 mg/dL L >40 LDL CALCULATION 126 mg/dL H <99 VLDL CALCULATION 50 mg/dL H <29 NON HDL CHOLESTEROL 176 mg/dL H <129 TRIG(NON FASTING) 249 mg/dL H <149 October 10, 2023 10:44 AM [facility] TSH W/REFLEX TO FREE T4 PLASMA Specime n Type: PLASMA Comment: Elevated triglyceride result from a non-fasting specimen should be interpreted with caution. A fasting panel is recommended for accurate triglycerides when trigs are >200 from a non-fasting specimen. Ordering Provider: LIN DU Report Released Date/Time: October 10, 2023 10:28 AM Reporting Lab: [facility] [address] Performing Lab: [facility] [address] TSH 1.71 u[IU]/mL 0.35-4.94 Radiology Reports: +/- [...] the Encounter. The data comes from all [place] treatment facilities. 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 No pleural effusion or pneumothorax. The cardiomediastinal silhouette is normal in size and countor. No acute osseous abnormality. Impression: No acute cardiopulmonary process. READING PHYSICIAN: Nilo Arevalo MD -[id number] 10/22/2023 9:12 CDT [facility] National Teleradiology Program [phone] (For Medical Practitioner Use Only) Attention Patients / Veterans: If you have questions or concerns about these test results, please contact your ordering provider or primary care team. Primary Interpreting Staff: RADIOLOGY,OUTSIDE SERVICE, Staff Physician / RADIOLOGY,OUTSIDE SERVICE [facility] Encounter Notes: All associated encounter notes This section contains the clinical notes associated to the Encounter. Date/Time Encounter Note(s) Provider Source Oct 28, 2023 09:34 AM LETTERS: LOCAL TITLE: FOLLOW UP RESULTS LETTER STANDARD TITLE: LETTERS DATE OF NOTE: OCT 28, 2023@09:34 ENTRY DATE: OCT 28, 2023@09:34:14 AUTHOR: AUTUMN NEVAREZ EXP COSIGNER: URGENCY: STATUS: COMPLETED [facility] [address] [place] [address] Oct NIKHIL HUERTA [address] [place] [address] Dear [place]: I am writing to inform you of the results of the tests you had done at the [facility]. The tests below were performed and are [...] staff or me at the following number: [phone] . Sincerely, AUTUMN NEVAREZ NP NURSE PRACTITIONER AUTUMN NEVAREZ [facility]
[2024-09-29 23:39] VITALS: BP 124/86; PULSE 89; RESP 20; TEMP 36.5; O2SAT 95; BMI 41.0
--- OUTSIDE RECORDS SUMMARY | 2024-09-29 23:59 | XMS_ITS | Clinical Summary ---
Author Organization [facility] Address [address] [place] [id number] Care Team Providers Care Automatic Winder Operator Name Role Phone 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 Not on file Not on file Obstetrics History Last Filed Vital Signs Vital Sign Reading Time Taken Comments Blood Pressure 128/80 07/08/2019 9:36 AM PIGMENT SUPPLIER Pulse 72 07/08/2019 9:36 AM PIGMENT SUPPLIER Temperature 36.5 C (97.7 F) 08/28/2018 8:28 AM CDT Respiratory Rate 16 07/08/2019 9:36 AM PIGMENT SUPPLIER Oxygen Saturation 98% 08/28/2018 8:28 AM CDT Inhaled Oxygen Concentration - - Weight 113.4 kg (250 lb) 07/08/2019 9:36 AM PIGMENT SUPPLIER Height 177.8 cm (5' 10) 07/08/2019 9:36 AM PIGMENT SUPPLIER Body Mass Index 35.87 07/08/2019 9:36 AM PIGMENT SUPPLIER Plan of Treatment Health Maintenance Due Date [...] - 199 mg/dL 01/20/2015 4:01 PM CDT [facility] TRIGLYCERIDES 154(H) <150 mg/dL 01/20/2015 4:01 PM CDT [facility] HDL CHOLESTEROL 36(L) >40 mg/dL 01/20/2015 4:01 PM CDT [facility] NON-HDL CHOLESTEROL 165(H) <145 mg/dl 01/20/2015 4:01 PM T [facility] CHOL/HDL RATIO 5.58(H) <4.50 01/20/2015 4:01 PM T [facility] LDL CHOLESTEROL 134(H) <=130 mg/dL 01/20/2015 4:01 PM T [facility] PATIENT STATUS FASTING 01/20/2015 4:01 PM T [facility] Blood specimen (specimen) BLOOD SPECIMEN / Unknown Venipuncture / Unknown 01/20/2015 7:09 AM CDT 01/20/2015 7:09 AM CDT us Keisha Barragan MD CHEMISTRY Final R esult [facility] [address] [place] [address], from Last 3 Months or Most Recently Relevant to Health Maintenance Insurance [employer] Care Teams Automatic Winder Operator Relationship Specialty Start Date End Date Yoel Dickerson PCP - General 09/01/17
--- OUTSIDE RECORDS SUMMARY | 2024-09-29 23:59 | XMS_ITS | Continuity of Care Document ---
Author Name [facility] Organization [facility] Care Team Providers Care Human Resources Advisor Name Role Phone [facility] Unavailable Unavailable Problems Combined list of problems from Department of Defense and Veterans Affairs facilities. It does not include entries that were removed or entered in error. Problem Status Onset Date Problem Type Date of Resolution Comments Source Exposure to potentially hazardous substance (SCT [id number]) Active 08/01/19 24 Condition Aug 01, 2023 Entered By: WILDER WEBB Comment: [facility] FELA Documentation Initiative [facility] LUMBAGO Active Condition DoD NONALLOPATHIC LESIONS THORACIC [...] ears / hearing exam Active Condition DoD ASSESSMENT OF PATIENT CONDITION WORK-RELATED Active Condition DoD visit for: screening exam pulmonary tuberculosis Active Condition DoD Abdominal Pain (SCT 58510571) Active Condition [facility] Asthma (SCT 028226635) Active Condition [facility] Back pain Active Condition [facility] Chronic post-traumatic stress disorder following combat Active Condition [facility] Contact with and (Suspected) Exposure to Air Pollution Active Condition [facility] Contact with and (suspected) exposure to other hazardous substances Active Condition [facility] Contact with and (Suspected) Exposure to other Hazardous, Chiefly Nonmedicinal, Active Condition [facility] Contact with and (Suspected) Exposure to other Hazards in the Physical Environme Active Condition [facility] Eczema (SCT 28841422) Active Condition [facility] Low Back Pain (SCT 515616257) Active Condition [facility] Obesity Active Condition [facility] Sleep apnea Active Condition [facility] Steatosis of liver Active Condition [facility] Diagnosis: ICD-10-CM G47.30 Sleep apnea, unspecified Active Diagnosis [facility] Diagnosis: ICD-10-CM Z77.9 Oth contact w and (suspected) exposures hazardous to health Active Diagnosis [facility] Diagnosis: ICD-10-CM Z77.110 Contact with and (suspected) exposure to air pollution Active Diagnosis [facility] Medications Combined list of outpatient medications from Department of [employer] and Veterans Affairs facilities.Medications provided include 1) outpatient medications from the last 15 months, and 2) patient-reported medications. Medication Details Route Status Patient Instructions Prescription Expires Prescription Number Last Dispense Date Ordering Provider Order Date Order Qty Source CELECOXIB 200MG CAP TAKE ONE CAPSULE BY MOUTH EVERY DAY NEEDED FOR PAIN TAKE WITH FOOD ORAL ACTIVE 01/13/2025 [id number] Sarah DU 2023 90 [place] 750MG TAB TAKE ONE TABLET BY MOUTH THREE TIMES A DAY NEEDED FOR MUSCLE PAIN ORAL ACTIVE 01/13/2025 [id number] 4 Sarah DU 2023 90 ALIA BURGOS Allergies, Adverse Reactions, Alerts Combined list of allergies from Department of Defense and Veterans Affairs facilities. It does not include entries that were removed or entered in error. Substance Category Reaction Severity Reaction type Status Date Reported Comments Source AMOXICILLIN Propensity to adverse reactions to drug (finding) Finding of vomiting active 1 [facility] AMOXICILLIN (AMOXICILLIN TRIHYDRATE) Drug allergy (disorder) Vomiting active 0 [place] Immunizations Combined list of available immunizations from the Department of Defense and Veterans Affairs facilities. Immunization Series Date Given Administered By Site Reaction Lot Number CVX Code Drug Director Of Home Health Services Status Comments Source TDAP 2015 115 complet ed [facility] anthrax vaccine 4 2010 [id number] [employer] [place] ([facility]) complet ed anthrax vaccine DoD Influenza, seasonal, injectable 3 2010 [id number] 141 Knowledge Delivery SystemsapIWT, [employer]. (CSL) complet ed Influenza , seasonal, injectabl e DoD anthrax vaccine 3 2010 [id number] [facility] [place] ([facility]) complet ed anthrax vaccine DoD vaccinia (smallpox) vaccine 1 2009 UNK 75 Unknown (UNK) Not Given vaccinia (smallpox ) vaccine DoD anthrax vaccine 2 2009 [id number] [facility] ([facility]) complet ed anthrax vaccine DoD influenza virus vaccine, live, attenuated, for intranasal use 1 2009 [id number] 111 [employer]. (MED) complet ed influenza virus vaccine, live, attenuate d, for intranasa l use DoD anthrax vaccine 1 2009 [id number] [employer] [place] ([facility]) complet ed anthrax vaccine DoD typhoid Vi capsular polysaccharid e vaccine 1 2009 [id number] Sanofi Pasteur (PMC) complet ed typhoid Vi capsular polysacch aride vaccine DoD hepatitis A and hepatitis B vaccine 3 2009 [id number] 104 SmithKline (SKB) complet ed hepatitis A and hepatitis B vaccine DoD Novel influenza-H1N 1-09, injectable 1 2009 [id number] 127 Novartis Dresser Mould[employer] CliniCast Danny. (NOV) complet ed Novel influenza -U2J1-42, injectabl e DoD influenza virus vaccine, live, attenuated, for intranasal use 1 2008 [id number] 111 MedINeocis, Inc. (MED) complet ed influenza virus vaccine, [...] diphtheria toxoid conjugate vaccine (MCV4P) 1 2008 [id number] 114 Sanofi Pasteur (PMC) complet ed meningoco ccal polysacch aride (groups A, C, Y and W-135) diphtheri a toxoid conjugate vaccine (MCV4P) DoD tetanus toxoid, reduced diphtheria toxoid, and acellular pertu is vaccine, adsorbed 1 2008 [id number] 115 SmithKline (SKB) complet ed tetanus [...] October 10, 2023 10:28 AM Reporting Lab: [facility] [address] Performing Lab: [facility] [address] ALIA BURGOS CBC ERYTHROCYTE S [#/VOLUME] IN BLOOD BY AUTOMATED COUNT 4.91 10*6/u L 4.6 - 6.2 10/09 Specimen Type: BLOOD No comment entered. Ordering Provider: MELISSA DU Report Released Date/Time: October 10, 2023 10:28 AM Reporting Lab: [facility] [address] Performing Lab: [facility] [address] [facility] CBC HEMOGLOBIN [MASS/VOLUM E] IN BLOOD 14.9 g/dL 13.5 - 17.9 10/09 Specimen Type: BLOOD No comment entered. Ordering Provider: MELISSA DU Report Released Date/Time: October 10, 2023 10:28 AM Reporting Lab: [facility] [address] Performing Lab: [facility] [address] [facility] CBC HEMATOCRIT [VOLUME FRACTION] OF BLOOD BY AUTOMATED COUNT 42.0 41 - 54 10/09 Specimen Type: BLOOD No comment entered. Ordering Provider: MELISSA DU Report Released Date/Time: October 10, 2023 10:28 AM Reporting Lab: [facility] [address] Performing Lab: [facility] [address] [facility] CBC MCV [ENTITIC VOLUME] BY AUTOMATED COUNT 85.5 fL 80 - 100 10/09 Specimen Type: BLOOD No comment entered. Ordering Provider: MELISSA DU Report Released Date/Time: October 10, 2023 10:28 AM Reporting Lab: [facility] [address] Performing Lab: [facility] [address] [facility] CBC MCH [ENTITIC MASS] BY AUTOMATED COUNT 30.3 pg 27 - 33 10/09 Specimen Type: BLOOD No comment entered. Ordering Provider: MELISSA DU Report Released Date/Time: October 10, 2023 10:28 AM Reporting Lab: [facility] [address] Performing Lab: [facility] [address] [facility] CBC MCHC [MASS/VOLUM E] BY AUTOMATED COUNT 35.5 g/dL 32.0 - 37.5 10/09 Specimen Type: BLOOD No comment entered. Ordering Provider: MELISSA DU Report Released Date/Time: October 10, 2023 10:28 AM Reporting Lab: [facility] [address] Performing Lab: [facility] [address] [facility] CBC PLATELETS [#/VOLUME] IN BLOOD BY AUTOMATED COUNT 336 10*3/u L 150 - 400 10/09 Specimen Type: BLOOD No comment entered. Ordering Provider: MELISSA DU Report Released Date/Time: October 10, 2023 10:28 AM Reporting Lab: [facility] [address] Performing Lab: [facility] [address] [facility] CBC PLATELET MEAN VOLUME [ENTITIC VOLUME] IN BLOOD BY AUTOMATED COUNT 10.0 fL 7.4 - 10.4 10/09 Specimen Type: BLOOD No comment entered. Ordering Provider: MELISSA DU Report Released Date/Time: October 10, 2023 10:28 AM Reporting Lab: [facility] [address] Performing Lab: [facility] [address] [facility] CBC ERYTHROCYTE DISTRIBUTIO N WIDTH [RATIO] BY AUTOMATED COUNT 11.9 11.5 - 14.5 10/09 Specimen Type: BLOOD No comment entered. Ordering Provider: MELISSA DU Report Released Date/Time: October 10, 2023 10:28 AM Reporting Lab: [facility] [address] Performing Lab: [facility] [address] [facility] COMPREHENS MATEO METABOLIC PANEL+MG [...] October 10, 2023 10:28 AM Reporting Lab: [facility] [address] Performing Lab: [facility] [address] [facility] COMPREHENS MATEO METABOLIC PANEL+MG [...] October 10, 2023 10:28 AM Reporting Lab: [facility] [address] Performing Lab: [facility] [address] [facility] COMPREHENS MATEO METABOLIC PANEL+MG GLUCOSE [...] October 10, 2023 10:28 AM Reporting Lab: [facility] [address] Performing Lab: [facility] [address] [facility] COMPREHENS MATEO METABOLIC PANEL+MG [...] October 10, 2023 10:28 AM Reporting Lab: [facility] [address] Performing Lab: [facility] [address] [facility] COMPREHENS MATEO METABOLIC PANEL+MG [...] October 10, 2023 10:28 AM Reporting Lab: [facility] [address] Performing Lab: [facility] [address] [facility] COMPREHENS MATEO METABOLIC PANEL+MG [...] October 10, 2023 10:28 AM Reporting Lab: [facility] [address] Performing Lab: [facility] [address] [facility] COMPREHENS MATEO METABOLIC PANEL+MG [...] October 10, 2023 10:28 AM Reporting Lab: [facility] [address] Performing Lab: [facility] [address] [facility] COMPREHENS MATEO METABOLIC PANEL+MG [...] October 10, 2023 10:28 AM Reporting Lab: [facility] [address] Performing Lab: [facility] [address] [facility] COMPREHENS MATEO METABOLIC PANEL+MG [...] October 10, 2023 10:28 AM Reporting Lab: [facility] [address] Performing Lab: [place] [address] [facility] COMPREHENS MATEO METABOLIC PANEL+MG [...] October 10, 2023 10:28 AM Reporting Lab: [facility] [address] Performing Lab: [facility] [address] [facility] COMPREHENS MATEO METABOLIC PANEL+MG [...] October 10, 2023 10:28 AM Reporting Lab: [facility] [address] Performing Lab: [facility] [address] [facility] COMPREHENS MATEO METABOLIC PANEL+MG [...] October 10, 2023 10:28 AM Reporting Lab: [facility] [address] Performing Lab: [facility] [address] [facility] COMPREHENS MATEO METABOLIC PANEL+MG [...] October 10, 2023 10:28 AM Reporting Lab: [facility] [address] Performing Lab: [facility] [address] [facility] COMPREHENS MATEO METABOLIC PANEL+MG [...] October 10, 2023 10:28 AM Reporting Lab: [facility] [address] Performing Lab: [facility] [address] [facility] COMPREHENS MATEO METABOLIC PANEL+MG [...] October 10, 2023 10:28 AM Reporting Lab: [facility] [address] Performing Lab: [facility] [address] [facility] COMPREHENS MATEO METABOLIC PANEL+MG [...] October 10, 2023 10:28 AM Reporting Lab: [facility] [address] Performing Lab: [facility] [address] ALIA BURGOS COMPREHENS MATEO METABOLIC PANEL+MG GLOMERULAR [...] October 10, 2023 10:28 AM Reporting Lab: [facility] [address] Performing Lab: [facility] [address] ALIA BURGOS HEMOGLOBIN A1C HEMOGLOBIN A1C/HEMOGLO BIN.TOTAL [...] October 10, 2023 10:28 AM Reporting Lab: [facility] [address] Performing Lab: [facility] [address] ALIA BURGOS LIPID PANEL,NON- FASTING CHOLESTEROL [MASS/VOLUM [...] October 10, 2023 10:28 AM Reporting Lab: [facility] [address] Performing Lab: [facility] [address] [facility] LIPID PANEL,NON- FASTING CHOLESTEROL [...] October 10, 2023 10:28 AM Reporting Lab: [facility] [address] Performing Lab: [facility] [address] [facility] LIPID PANEL,NON- FASTING CHOLESTEROL [...] October 10, 2023 10:28 AM Reporting Lab: [facility] [address] Performing Lab: [facility] [address] [facility] LIPID PANEL,NON- FASTING CHOLESTEROL [...] October 10, 2023 10:28 AM Reporting Lab: [facility] [address] Performing Lab: [facility] [address] ALIA BURGOS LIPID PANEL,NON- FASTING CHOLESTEROL NON [...] October 10, 2023 10:28 AM Reporting Lab: [facility] [address] Performing Lab: [facility] [address] ALIA BUROGS LIPID PANEL,NON- FASTING TRIGLYCERID E [MASS/VOLUM E] [...] October 10, 2023 10:28 AM Reporting Lab: [facility] [address] Performing Lab: [facility] [address] ALIA BURGOS TSH W/REFLEX TO FREE T4 [...] October 10, 2023 10:28 AM Reporting Lab: [facility] [address] Performing Lab: [facility] [address] ALIA BURGOS Vital Signs Combined list of [...] ADM Date DC Date Status Disposition Source [facility] Post Immunizat ion) OUTPATIENT [id number] IET PPD JESUS MILNER 09/14 Released w/o Limitations [facility] Post Immuniz ation) [facility](IEP Hearing Conservat ion) OUTPATIENT [id number] JE THOMPSON 09/14 Released w/o Limitations [facility](I EP Hearing Conserv ation) [facility](PES Optometry -Trainee) OUTPATIENT [id number] ROSCOE DOWNS 09/19 Released w/o Limitations [facility](P ES Optomet ry-Delfino nee) [facility] Immediate Care Clinic) OUTPATIENT [id number] 18 y/o M SIT c/o Fever/S inLASHAY Quintero 11/05 Sick at Home/Quarter s [facility] Immedia te Care Clinic) [facility] Ambulator y) OUTPATIENT [id number] VASQUEZ PAT *PA* 11/06 Sick at Home/Quarter s [facility] Ambulat ory) [facility] General Medicine) OUTPATIENT [id number] foot pain JESSICA ORELLANA E 06/07 Released with Work/Duty Limitations [facility] General Medicin e) [facility](Clinic al Dietetics ) OUTPATIENT [id number] [employer] ESTELA GR 07/18 Released w/o Limitations [facility](Clin ical Dieteti cs) [facility](Physic al Therapy) OUTPATIENT [id number] 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 TOLU PUENTES E 07/25 Released w/o Limitations [facility](Phys ical Therapy ) [facility](Clinic al Dietetics ) OUTPATIENT [id number] f/uArmy MOVE, session 9 keep it going RACHEL BEASLEY 08/01 Released w/o Limitations [facility](Clin ical Dieteti cs) [facility](Clinic al Dietetics ) OUTPATIENT [id number] f/u [employer] Session 3 RACHEL BEASLEY 08/15 Released w/o Limitations [facility](Clin ical Dieteti cs) [facility](Physic al Therapy) OUTPATIENT [id number] [employer] MOVES CLASS TOLU PUENTES E 08/29 Released w/o Limitations [facility](Phys ical Therapy ) [facility](Clinic al Dietetics ) OUTPATIENT [id number] f/u [employer], Session 5 ESTELA GR HALLE 09/07 Released w/o Limitations [facility](Clin ical Dieteti cs) [facility](Clinic al Dietetics ) OUTPATIENT [id number] f/u [employer], Session 7, tip the balance RACHEL BEASLEY 09/19 Released w/o Limitations [facility](Clin ical Dieteti cs) [facility] Medical [facility]) OUTPATIENT [id number] DEBRA RAYA 12/05 Immediate Referral [facility]) [facility] General Medicine) OUTPATIENT [id number] lesion on shaft of penis JESSICA ORELLANA Kuldeep 12/06 Released w/o Limitations [facility] General Medicin e) [facility](Hearin g Conservat ion 2) OUTPATIENT [id number] Hearing Exam ALKA ESPINOSA Samuel 12/26 Released w/o Limitations [facility](Hear ing Conserv ation 2) [facility]([place] [address]) OUTPATIENT [id number] asthma, not control led LUISA DOTSON 03/20 Released w/o Limitations [facility]([place] [address]) Theater Facility OUTPATIENT [id number] 07/18 Released w/o Limitations Theater Facilit y Theater Facility OUTPATIENT [id number] 08/13 Released with Work/Duty Limitations Theater Facilit y [facility](Deploy ment) OUTPATIENT [id number] Luis Enrique FLORES ABS,VIS MABEL SOLITARIO 03/22 Released w/o Limitations [facility](Depl oyment) [facility]) OUTPATIENT [id number] LISANDRA BROWN 05/09 Released w/o Limitations [facility]) [facility] 2) OUTPATIENT [id number] rash on hands DAVID FLORES 06/04 Released w/o Limitations [facility] 2) [facility] 2) TELE CONSULT [id number] Over weight program , nutrito n DAVID Adams 06/28 [facility] 2) [facility](Clinic al Dietetics ) OUTPATIENT [id number] [employer] ESTELA GR 07/10 Released w/o Limitations [facility](Clin ical Dieteti cs) [facility] 2) OUTPATIENT [id number] rash on face MARK, DAVID T. 07/19 Released w/o Limitations [facility] 2) [facility] 2) OUTPATIENT [id number] rash on face MARK, DAVID T. 07/23 Released w/o Limitations [facility] 2) [facility] 2) OUTPATIENT [id number] f/u eye infecti on MARK, DAVID T. 07/28 Released w/o Limitations [facility] 2) [facility]AM [facility] 2) OUTPATIENT [id number] Follow up eye infecti on MARK, DAVID T. 08/01 Released w/o Limitations [facility] 2) [facility](Clinic al Dietetics ) OUTPATIENT [id number] F/U [employer], Module 2 JULISA MCKEON 08/07 Released w/o Limitations [facility](Clin ical Dieteti cs) [facility] 2) OUTPATIENT [id number] Browne Splints , LBP, Plantar pain MARK, DAVID T. 08/11 Released w/o Limitations [facility] 2) [facility](Hearin g Conservat ion) OUTPATIENT [id number] Hearing Exam FRANCISCABEKAHWilbur Baker 08/13 Released w/o Limitations [facility](Hear ing Conserv ation) [facility]AM [facility](Deploy ment) OUTPATIENT [id number] PDHRA/V EVENS HANSON 08/13 Released w/o Limitations [facility](Depl oyment) [facility] 2) OUTPATIENT [id number] Acute LBP MARK, DAVID T. 08/25 Released w/o Limitations NOAM [facility]([address] 2) NOAM Olivo([address] WTT 3) OUTPATIENT [id number] Chapter 18 CHELO RAI L 09/30 Released w/o Limitations O[facility]([address] WTT 3) [facility]AM [facility] Opto) OUTPATIENT [id number] chapter physica l LOLA KELLY T 10/01 Released w/o Limitations [facility] Opto) NOAM [facility]([address] 2) OUTPATIENT [id number] phase 2, chapter MARK, DAVID T. 10/14 Released w/o Limitations NOAM [facility]ivo([address] 2) NOAM [facility]ivo([facility]) OUTPATIENT [id number] [place] JE[place] 10/22 Released w/o Limitations [facility](Depl oyment) [facility] Chiro) OUTPATIENT [id number] lower back pain JOSE MANUEL, CAITIE M 10/28 Released w/o Limitations [facility] Chiro) [facility] Chiro) OUTPATIENT [id number] lbp JOSE MANUEL, CAITIE M 11/17 Released w/o Limitations [facility] Chiro) [facility] Chiro) OUTPATIENT [id number] lbp JOSE MANUEL, CAITIE M 11/21 Released w/o Limitations [facility] Chiro) [facility]([address] 2) OUTPATIENT [id number] lower back pain MARK, DAVID T. 11/21 Released w/o Limitations [facility]([address] 2) [facility] Phy Th) OUTPATIENT [id number] lumbar PRETTYSANDRO 12/03 Released w/o Limitations [facility] Phy Th) [facility] Chiro) OUTPATIENT [id number] lbp LORNA RICHARDKuldeep Gordon 12/07 Released w/o Limitations [facility] Chiro) [place] [facility] Outpatient Encounter [id number] SIDRA SOUZA 04/29 [place] [facility] [facility] [place] [facility] [place] Encounter [id number] SIDRA SOUZA 04/29 [place] [facility] [place] [facility] Outpatient Encounter [id number] MARYA KELLER 04/29 [place] [facility] [place] [facility] Outpatient Encounter [id number] MARIBELL COATES 05/02 [place] [facility] [place] [facility] Out[place] Encounter [id number] 08/10 [place] [facility] [place] [facility] Outpatient Encounter [id number] 08/20 [place] [facility] [place] [facility] Outpatient Encounter [id number] CHETNA MERCEDES 09/04 [place] [facility] [place] [facility] Outpatient Encounter [id number] Diagnos is: ICD-10- CM Z77.110 Contact with and (suspec silvano) exposur e to air polluti on FLACA INFANTE Naveed 09/07 [place] [facility] [place] [facility] Outpatient Encounter [id number] 09/16 [place] [facility] [place] [facility] Outpatient Encounter [id number] 09/22 [place] [facility] [place] [facility] Outpatient Encounter [id number] 10/01 [place] [facility] [place] [facility] Outpatient Encounter [id number] AMOS DU NNDEEJAY M 10/09 [place] [facility] OFFICE O/P EST HI 40 MIN [id number] Diagnos is: ICD-10- CM G47.30 Sleep apnea, unspeci fied AMOS DU NNIE M 10/09 [facility] [place] [facility] HEMOGLOBIN [id number] Diagnos is: ICD-10- CM Z77.9 Oth contact w and (suspec silvano) exposur es hazardo us to health WRZOS,JHON SOARES 10/16 [place] [facility] [place] [facility] Outpatient Encounter [id number] 10/16 [place] [facility] [place] [facility] Outpatient Encounter [id number] 10/27 [facility] [place] [facility] Outpatient Encounter [id number] SIDRA SOUZA 12/28 [place] [facility] [place] [facility] Outpatient Encounter [id number] SIDRA SOUZA 12/28 [place] [facility] [place] [facility] Outpatient Encounter [id number] BAIRON MCDONNELL 01/07 [place] [facility] [place] [facility] Outpatient Encounter [id number] SIDRA SOUZA 01/11 [place] [facility] [place] [facility] Outpatient Encounter [id number] SIDRA SOUZA 01/11 [place] [facility] [place] [facility] Outpatient Encounter [id number] 01/11 [place] [facility] [place] [facility] Outpatient Encounter [id number] SIDRA SOUZA 02/09 [place] [facility] [place] [facility] Outpatient Encounter [id number] SIDRA SOUZA 02/09 [place] [facility] [place] [facility] Outpatient Encounter [id number] 02/10 [place] [facility] [place] [facility] Outpatient Encounter [id number] 02/18 [place] [facility] [place] [facility] UNLISTED PULMONARY SVC/PX [id number] Diagnos is: ICD-10- CM G47.30 Sleep apnea, unspeci fied AZAM HANNA 02/23 [place] [facility] [place] [facility] Outpatient Encounter [id number] 02/26 [place] [facility] [place] [facility] Outpatient Encounter [id number] 03/01 [place] [facility] [place] [facility] Outpatient Encounter [id number] BAIRON MCDONNELL S 03/25 [facility] [place] [facility] Outpatient Encounter [id number] BAIRON MCDONNELL ICA S 03/[facility] [place] [facility] Outpatient Encounter [id number] Luis Enrique LOWERY 06/07 [facility] Procedures Combined list of: 1) Procedures from Department of Veterans Affairs facilities going back up to thelast 18 months, not all [place] non-surgical procedures are included; 2) All procedures from the Department of Defense facilities. Procedure Procedure Type Code Date Perfomer Comments Sourc e Chiropractic Manip Treatmt (CMT) Spinal One To Two Regions Chiropractic Manip Treatmt (CMT) Spinal One To Two Regions 21243 2 CAITIE RICHARD PT A e ment Kinetic Training PT Assessment Kinetic Training 26369 2 SANDRO PRETTY Physical Medicine Physical Therapy Evaluation Physical Medicine Physical Therapy Evaluation 59052 2 SANDRO PRETTY Chiropractic Manip Treatmt (CMT) Spinal Three To Four Region Chiropractic Manip Treatmt (CMT) Spinal Three To Four Region 33372 2 JOSE MANUEL CAITIE M [facility] Chiropractic Manip Treatmt (CMT) Spinal One To Two Regions Chiropractic Manip Treatmt (CMT) Spinal One To Two Regions 82134 2 JOSE MANUEL CAITIE [facility] Chiropractic Manip Treatmt (CMT) Spinal One To Two Regions Chiropractic Manip Treatmt (CMT) Spinal One To Two Regions 08979 2 JOSE MANUEL CAITIE [facility] Screening Test Of Visual Acuity, Quantitative, Bilateral Screening Test Of Visual Acuity, Quantitative, Bilateral 89993 2 LOLA KELLY [facility] Psychiatric Evaluation Comprehensive Examination Psychiatric Evaluation Comprehensive Examination 74156 2 TOÑITO BERNARD [facility] Audiogram (Screening) Audiogram (Screening) 49297 2 ALKA ESPINOSA [facility] Audiometry Group Testing Audiometry Group Testing 12901 2 ALKA ESPINOSA Screening Test Of Visual Acuity, Quantitative, Bilateral Screening Test Of Visual Acuity, Quantitative, Bilateral 65174 2 ACOSTAROMARIO Young [facility] Medical Nutrition Therapy Group (2 or More Individual(s)) Medical Nutrition Therapy Group (2 or More Individual(s)) 05944 2 ESTELA GR [facility] Social Work Individual Outpatient Counseling 45-50 Minutes Social Work Individual Outpatient Counseling 45-50 Minutes 99764 2 SOLA PATEL [facility] Psychiatric Evaluation Comprehensive Examination Psychiatric Evaluation Comprehensive Examination 29179 2 SOLA PATEL [facility] Medical Nutrition Therapy Group (2 or More Individual(s)) Medical Nutrition Therapy Group (2 or More Individual(s)) 74142 2 GAMALIEL ALLEN [facility] Venipuncture Venipuncture 16696 1 ACOSTAROMARIO Young [facility] Screening Test Of Visual Acuity, Quantitative, Bilateral Screening Test Of Visual Acuity, Quantitative, Bilateral 10272 1 ACOSTAROMARIO [facility] Audiogram (Screening) Audiogram (Screening) 33152 0 ALKA ESPINOSA [facility] Audiometry Group Testing Audiometry Group Testing 96293 0 ALKA ESPINOSA [facility] Ear Protector Attenuation Measurements Ear Protector Attenuation Measurements 03916 0 ALKA ESPINOSA DoD Install Peripheral Transcutaneous Neurostimulator Install Peripheral Transcutaneous Neurostimulator 43758 0 AJ CROSS [facility] Psychiatric Evaluation Comprehensive Examination Psychiatric Evaluation Comprehensive Examination 85171 0 JATIN PORTER DoD Install Peripheral Transcutaneous Neurostimulator Install Peripheral Transcutaneous Neurostimulator 88586 0 CROSS [facility] DoD Psychiat Therapy Indiv Appr 45-50 Min W/ Med Eval Managemt Psychiat Therapy Indiv Appr 45-50 Min W/ Med Eval Managemt 04862 0 CARLOS TIJERINA DoD Install Peripheral Transcutaneous Neurostimulator Install Peripheral Transcutaneous Neurostimulator 02245 0 CROSSAJ DoD Install Peripheral Transcutaneous Neurostimulator Install Peripheral Transcutaneous Neurostimulator 95767 0 CROSS [facility] DoD Install Peripheral Transcutaneous Neurostimulator Install Peripheral Transcutaneous Neurostimulator 72098 0 DEAN LYN [facility] Psychiatric Evaluation Comprehensive Examination Psychiatric Evaluation Comprehensive Examination 13054 0 CARLOTA ECHOLS [facility] Medical Nutrition Therapy Group (2 or More Individual(s)) Medical Nutrition Therapy Group (2 or More Individual(s)) 85569 0 RACHEL BEASLEY DoD Weight management cla es, non-physician provider, per se ion 0 RACHEL BEASLEY DoD Medical Nutrition Therapy Group (2 or More Individual(s)) Medical Nutrition Therapy Group (2 or More Individual(s)) 10445 0 ESTELA GR DoD Weight management cla es, non-physician provider, per se ion 0 ESTELA GR DoD Patient Counseling Medical Management Five To Eight Patients Patient Counseling Medical Management Five To Eight Patients 83843 0 TOLU BOLANOS DoD Medical Nutrition Therapy Group (2 or More Individual(s)) Medical Nutrition Therapy Group (2 or More Individual(s)) 46732 0 RACHEL BEASLEY DoD Weight management cla es, non-physician provider, per se ion 0 RACHEL BEASLEY [facility] Clinical Social Work Counseling Group Clinical Social Work Counseling Group 30840 0 BRENDA GOMEZ [facility] Medical Nutrition Therapy Group (2 or More Individual(s)) Medical Nutrition Therapy Group (2 or More Individual(s)) 47725 0 RACHEL BEASLEY [facility] Weight management cla es, non-physician provider, per se ion 0 RACHEL BEASLEY [facility] Patient Counseling Medical Management Five To Eight Patients Patient Counseling Medical Management Five To Eight Patients 08116 0 TOLU BOLANOS [facility] Nutrition cla es, non-physician provider, per se ion 0 ESTELA GR [facility] Medical Nutrition Therapy Group (2 or More Individual(s)) Medical Nutrition Therapy Group (2 or More Individual(s)) 30587 0 ESTELA GR [facility] Visual Function Screening Visual Function Screening 15820 9 ROSCOE DOWNS [facility] Ear Protector Attenuation Measurements Ear Protector Attenuation Measurements 90233 9 JE THOMPSON [facility] Threshold Audiogram (Pure Tone) Threshold Audiogram (Pure Tone) 38670 9 JE THOMPSON Audiometry Group Testing Audiometry Group Testing 05952 9 JE THOMPSON [facility] -Supervised Group Educational Services 9 JE THOMPSON Special Services Analysis Of Computerized Data Special Services Analysis Of Computerized Data 65554 9 JE THOMPSON Ear mold/insert, not disposable, any type 9 JE THOMPSON [facility] Immunization Administration One Vaccine Immunization Administration One Vaccine 36926 9 JAXON DARBY [facility] Social History Combined list of available smoking, tobacco, and other social history from Department of Defense and Veterans Affairs facilities. Social History Type Response Date Comment [facility] e Tobacco smoking status [facility] VA-TOBACCO NEVER USED 10/10/19 [facility] History of tobacco use VA-TOBACCO NEVER USED 09/24/2022 [facility] History of tobacco use VA-TOBACCO NEVER USED 11/22/2021 [facility] History of tobacco use MS-TOBACCO FORMER USER 11/07/2020 [facility] B[facility] This section is an empty social history section. [facility] Plan of Care List of future care activities from Department of Veterans Affairs facilities. Additional future care activities may be listed in the Assessment and Plan section. Date/Time Care Activity Care Activity Detail Facili ty 11/05/2024 AMBULATORY - MEDICINE AMBULATORY - MEDICI NE [facility]
--- NOTE | 2024-09-30 | CRLHL7_ITS ---
For Patients: As a result of the Century Cures Act, medical imaging exams and procedure reports are released immediately into your electronic medical record. You may view this report before your referring provider. If you have questions, please contact your health care provider. INDICATION: Chest pain, increased pain with deep breathing TECHNIQUE: Chest radiograph 1 view COMPARISON: 06/06/2024 FINDINGS: The sensitivity and specificity of the exam are moderately limited by the patient`s body habitus. Mediastinum: The mediastinum is normal in appearance. The heart silhouette is normal in size and morphology. Lung: Both lungs are unremarkable in appearance with small lung volumes. No sign of pleural effusion seen. No pneumothorax is identified. Bone and Soft tissue: Unremarkable for age. IMPRESSION: 1. No acute cardiopulmonary disease is seen. Dictated by: Srinivasan Spears MD @ 09/30/2024 00:11:29 (Electronically Signed)
[2024-09-30 00:34] LABS: Basophils Absolute Auto 0.02 K/uL (0.00-0.30); Basophils Percent Auto 0.3 % (0.0-3.0); Eosinophils Percent Auto 1.7 % (0.0-7.0); Hematocrit 40.4 % (37.0-53.0); Hemoglobin* 14.1 gm/dL (13.5-17.5); Immature Granulocytes Abs Auto 0.05 K/uL (0.00-0.30); Immature Granulocytes Pct Auto 0.8 %; Lymphocytes Absolute Auto 2.14 K/uL (0.90-2.90); Lymphocytes Percent Auto 35.9 % (20-44); Mean Corpuscular HGB Conc 35 gm/dL (32-36); Mean Corpuscular Hemoglobin 30 pg (26-34); Mean Corpuscular Volume 86 fL (80-100); Monocytes Percent Auto 7.4 % (0.0-11.0); Neutrophils Absolute Auto 3.21 K/uL (1.7-7.0); Neutrophils Percent Auto 53.9 % (42.0-72.0); Platelet Count* 308 K/uL (140-440); RDW Coefficient of Variation % 11.6 % (11.5-15.5); Red Blood Count 4.71 m/uL (4.30-5.90); White Blood Count* 5.96 K/uL (4.50-11.00)
[2024-09-30 00:37] LABS: Slide Review Reflex No
[2024-09-30] MEDS: KETOROLAC 15 MG/ML inj IVP (00:37)
[2024-09-30 00:46] LABS: Chloride* 103 mmol/L (96-114); Potassium* 3.9 mmol/L (3.6-5.1); Sodium* 139 mmol/L (135-149)
[2024-09-30 00:49] LABS: Blood Urea Nitrogen* 22 mg/dL (5-24); Creatinine* 1.4 mg/dL (0.5-1.5); Est. Creatinine Clearance* 73.65; Estimated Glomerular Filt Rate 67 ml/min
[2024-09-30 00:50] LABS: Anion Gap 11 mEq/L (7-15); Calcium* 8.9 mg/dL (8.4-10.6); Carbon Dioxide* 25 mmol/L (20-32); Glucose* 107 mg/dL (60-115); Magnesium* 2.1 mg/dL (1.5-2.6)
[2024-09-30 00:53] LABS: C Reactive Protein* 0.6 mg/dL (0.5-1.0)
[2024-09-30 01:03] LABS: NT Pro B Type NatriureticPept* < 20 pg/mL
[2024-09-30 01:05] LABS: D Dimer Quantitative* 0.07 ug/ml (0.00-0.50)
[2024-09-30 01:15] VITALS: BP 113/75; PULSE 92; RESP 20; O2SAT 95
[2024-09-30] MEDS: DEXAMETHASONE 10 MG/ML PF IVP (01:19)
== END 2024-09-30 01:28 | disposition home or self-care (01) ==
PROVIDERS: Emergency Provider Family Medicine
DX: R07.89 Other chest pain (principal)
CPT/HCPCS: 36415; 71045; 80048; 83735; 83880; 84484; 85025; 85379; 86140; 93005; 96374; 96375; 99284; 99285; J1100; J1885